=== PATIENT | female | born 1950 | race Caucasian/White ===

== ENCOUNTER → 2018-05-27 09:58 | Outpatient (CLI) | payer MEDICARE, OTHER, SELFPAY ==
--- NOTE | 2018-05-27 09:59 | CDU_ITS ---
Reason For Study: CAROTID ARTERY DISEASE Rt. Velocities/BP Lt. Velocities/BP Prox CCA 84.4/9.38 cm/sec. Prox CCA 99.1/14.1 cm/sec. Mid CCA 104.0/12.3 cm/sec. Mid CCA 80.9/13.5 cm/sec. Dist CCA 76.2/12.3 cm/sec. Dist CCA 76.8/16.4 cm/sec. Prox ICA 75.0/15.2 cm/sec. Prox ICA 49.5/ cm/sec. Mid ICA 76.2/19.3 cm/sec. Mid ICA 85.0/21.7 cm/sec. Dist ICA 67.2/17.9 cm/sec. Dist ICA 80.0/21.4 cm/sec. Rt. ICA/CCA = 76.2/104.0=0.7. Lt. ICA/CCA = 85.0/80.9=1.0. Prox ECA 86.8/7.04 cm/sec. Prox ECA 57.0/8.64 cm/sec. Rt. Vert. 41.2/9.04 cm/sec. Lt. Vert. 46.0/9.04 cm/sec. Right Extracranial There is heterogeneous, smooth atherosclerotic plaque noted in the right common carotid artery. There is heterogeneous, smooth atherosclerotic plaque noted in the right internal carotid artery. The atherosclerotic plaque causes acoustic shadowing. The distal right internal carotid artery is not well visualized. There is heterogeneous, smooth atherosclerotic plaque noted in the right external carotid artery. Antegrade flow is noted in the right vertebral artery. Left Extracranial There is heterogeneous, irregular atherosclerotic plaque noted in the left common carotid artery. There is heterogeneous, irregular atherosclerotic plaque noted in the left internal carotid artery. The distal left internal carotid artery is not well visualized. There is intimal thickening but no significant atherosclerotic plaque noted in the left external carotid artery. Antegrade flow is noted in the left vertebral artery. Procedure Carotid Duplex [id number]. The exam was diagnostic. Exam performed in department. 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 Normal flow left external carotid Poorly visualized bilateral distal internal carotids Patent and antegrade vertebrals bilaterally Findings do not appear to be altered since 09/04/15. Ordering Physician: Ellis Rehman Referring Physician: Ellis Rehman Performed By: Renetta Germain, CAROL ANN, RVT
--- NOTE | 2018-05-27 10:28 | ECHOD_ITS ---
Reason For Study: MURMUR Procedure This was a 2D Doppler, Color Flow transthoracic echocardiogram. The exam was of poor technical quality due to body habitus. The study was technically difficult. Contrast injection was performed. Exam performed in department. Left Ventricle Normal LV size. Left ventricular systolic function is normal. The estimated ejection fraction is 65 %. Diastolic function: considered indeterminate. No regional wall motion abnormalities noted. Right Ventricle Normal RV size. ICD or pacer leads identified within the right ventricle. Normal systolic function. Atria The left atrium is mildly enlarged. Normal right atrium. ICD or pacer leads identified within the right atrium. No doppler evidence for ASD. Mitral Valve There is no mitral annular calcification. Normal mitral valve. Mild (1+) mitral valve insufficiency. Tricuspid Valve Normal tricuspid valve. Mild tricuspid valve insufficiency. Right ventricular systolic pressure estimated to be 28 mmHg. Aortic Valve The aortic valve is not well visualized. Pulmonic Valve The pulmonic valve is not well visualized. Great Vessels Normal sized aortic root. Pericardium/Pleural Epicardial fat. No pericardial effusion. Medication 22 gauge I.V. with prn adaptor inserted into right arm. Diluted definity 6ml given slow IV push to enhance endocardial definition. MMode/2D Measurements & Calculations Ao root diam: 2.7 cm LAV(MOD-bp): 52.2 ml EDV(MOD-sp4): 72.8 ml LA dimension: 4.4 cm LAV(MOD-bp) Indexed: 28.4 ml/m2 ESV(MOD-sp4): 30.9 ml LAV(MOD-sp2): 46.5 ml EF(MOD-sp4): 57.6 % LAV(MOD-sp4): 58.2 ml EDV(MOD-sp2): 46.5 ml SV(MOD-sp4): 42.0 ml SV(MOD-sp2): 30.7 ml EF(MOD-sp2): 65.9 % LA A4 area: 19.8 cm2 RA A4 area: 13.6 cm2 Time Measurements MV dec time: 0.18 sec Doppler Measurements & Calculations MV E max romain: 52.5 cm/sec Lat Peak E' Romain: 4.1 cm/sec Med Peak E' Romain: 5.0 cm/sec MV A max romain: 83.5 cm/sec E/E' lat: 12.7 E/E' med: 10.6 MV E/A: 0.63 Ao V2 max: 183.8 cm/sec LV V1 max: 98.9 cm/sec PA V2 max: 89.4 cm/sec Ao max P.5 mmHg LV V1 max P.9 mmHg Ao V2 mean: 130.4 cm/sec Ao mean P.5 mmHg Ao V2 VTI: 37.0 cm TR max romain: 248.5 cm/sec TR max P.8 mmHg Interpretation Summary The study was technically difficult. Contrast injection was performed. Left ventricular systolic function is normal. The estimated ejection fraction is 65 %. The left atrium is mildly enlarged. Mild (1+) mitral valve insufficiency. Mild tricuspid valve insufficiency. Epicardial fat. Right ventricular systolic pressure estimated to be 28 mmHg. Ordering Physician: Ellis Rehman Referring Physician: RONAL SARABIA Performed By: Sandra Wilson, CAROL ANN, RVT
== END ==
PROVIDERS: Family Provider Internal Medicine; PCP Internal Medicine; Visit Provider Internal Medicine Cardiovascular Disease
DX: R09.89 Other specified symptoms and signs involving the circulatory and respiratory systems (principal); I25.10 Atherosclerotic heart disease of native coronary artery without angina pectoris
CPT/HCPCS: 93306; 93880; Q9957; A4216; C8929

== ENCOUNTER 2019-06-21 19:37 | Emergency (ER) | payer MEDICARE, SELFPAY ==
[2019-05-02 09:50] VITALS: BMI 38.2
[2019-06-21 19:38] VITALS: BP 159/67; PULSE 83; RESP 20; TEMP 38.2; O2SAT 93; BMI 38.0
[2019-06-21 20:00] VITALS: BP 159/67; PULSE 83; RESP 20; TEMP 38.2; O2SAT 97
[2019-06-21] MEDS: Acetaminophen 500 MG Tablet 1000 MG PO (20:09)
[2019-06-21] MEDS: 0.9% Normal Saline 1,000 ML 1000 ML IV (20:09)
[2019-06-21 20:10] LABS: Absolute Lymphocyte Count 0.38 X10^3/uL (0.83-4.51); Absolute Neutrophil Count 1.9 X10^3/uL (2.0-7.7); Basophil# 0.01 X10^3/uL; Basophil% 0.4 % (0-1); Eosinophil# 0.01 X10^3/uL; Eosinophils% 0.4 % (0-5); Hematocrit 43.3 % (37-47); Hemoglobin 14.7 g/dL (12.0-15.0); Lymphocyte # 0.38 X10^3/ul (4.0); Lymphocyte % 16.4 % (19-41); Mean Corp Hgb Conc 33.9 g/dL (32-36); Mean Corpuscular Hgb 34.3 pg (27.0-32.0); Mean Corpuscular Volume 101.2 fL (81-99); Mean Platelet Vol. 10.2 fl (6.2-12.0); Monocyte# 0.01 X10^3/uL; Monocyte% 0.4 % (0-10); NRBC Flagged by Analyzer 0 % (0-5); POSITIVE DIFFERENTIAL YES; POSITIVE MORPHOLOGY YES; Platelet Count 171 K/mm3 (150-450); RBC Distribution Width CV 11.8 % (11.6-14.6); RBC Distribution Width SD 43.8 fl (35.1-43.9); Red Blood Count 4.28 M/mm3 (4.2-5.4); White Blood Count 2.3 K/mm3 (4.4-11.0)
--- NOTE | 2019-06-21 20:15 | RAD_ITS ---
STUDY: X-RAY CHEST REASON FOR EXAM: Female, 69 years old. Cough, weakness. TECHNIQUE: PA and lateral chest. COMPARISON: 08/08/2015. FINDINGS: Dual lead cardiac pacemaker on the left. The lungs are clear and expanded. There is no demonstrated pleural abnormality. Normal size heart. Normal mediastinum and gabino. Normal visualized pulmonary arteries. Normal visualized aortic arch and descending thoracic aorta. Normal visualized thoracic spine. Normal visualized ribs, clavicles, and shoulders. There is no demonstrated abnormality of the visualized soft tissue structures of the upper abdomen. RAD/Chest PA and Lateral IMPRESSION: Normal x-ray examination of the chest. Electronically Signed: Wilma Allison MD at 20:30 EDT Tel , Service support ,
[2019-06-21 20:17] LABS: Differential Indicated SCAN CRITERIA MET
[2019-06-21 20:24] LABS: Anion Gap 11 (5-15); BUN 20 mg/dL (7-18); BUN/Creat Ratio 19.4 RATIO (10-20); Calcium,Total 9.3 mg/dL (8.5-10.1); Chloride 104 mmol/L (98-107); Creatinine, Serum 1.03 mg/dL (0.55-1.02); EST Glomerular Filtration Rate 56 mL/min (>60); Est Glom Filt Rate - Afr Amer 68 mL/min (>60); Estimated Creatinine Clearance 35.98 ml/min; Glucose 137 mg/dL (74-106); Potassium 3.4 mmol/L (3.5-5.1); Sodium Level 136 mmol/L (136-145)
[2019-06-21] MEDS: Ondansetron 4 MG/2 ML Vial IV ×2 (20:25→21:27)
[2019-06-21 20:49] LABS: Bacteria 0 SEEN /hpf (None Seen); Mucous, Urine 0 SEEN /hpf (<or=2+); Red Blood Cells-Urine 0 SEEN /hpf (0-5); Squamous Epithelial Cells - UA 0 SEEN /hpf (5-10)
[2019-06-21 20:51] LABS: Differential Comment SCANNED
[2019-06-21 20:53] LABS: Color, Urine Yellow (Yellow); Glucose, Dipstick Normal (Normal); Ketone-Dipstick 5 mg/dl (Negative); Leukocyte Esterase-Dipstick Negative /ul (Negative); Nitrite-Dipstick Negative (Negative); Occult Blood-Urine Negative /ul (Negative); Protein-Dipstick 15 mg/dl (Negative); Urine Bilirubin Dipstick Negative (Negative); Urine Clarity Clear (Clear); Urine Urobilinogen Normal (Normal)
[2019-06-21 21:00] VITALS: BP 114/54; PULSE 77; RESP 30; TEMP 38.7; O2SAT 95
[2019-06-21 21:00] LABS: White Blood Cells 0-5 SEEN /hpf (0-5)
--- NOTE | 2019-06-21 21:03 | ED.RN ---
DR. MIKE AWARE THAT PT'S VITAL SIGNS AND LAB RESULTS ARE TRIGGERING A SEPSIS ALERT AND STATES HE WILL LOOK AT PT'S RESULTS BEFORE INITIATING SEPSIS ALERT.
--- NOTE | 2019-06-21 21:20 | ED.VIS.GEN ---
History of Present Illness Chief Complaint: Fever Narrative: Patient presenting for evaluation secondary to a sudden onset of fever chills nausea vomiting and diarrhea Cameron as well as some mild shortness of breath. Patient states that she had relatively precipitous onset of the above symptoms this evening. Its been associated with 3-4 episodes of nonbloody nonbilious emesis, and a couple of episodes of loose watery diarrhea. Patient denies any abdominal pain associated with this. The patient's apparently reported that she was mildly confused and was stating that she was short of breath. When questioned, the patient denies being short of breath, and denies any chest pain. Review of systems otherwise negative Past Medical History - Allergies and Home Meds Allergies/Adverse Reactions: Allergies doxycycline calcium [From Vibramycin] Allergy (Verified 11/22/18 09:25) Anaphylaxis doxycycline hyclate [From Vibramycin] Allergy (Verified 11/22/18 09:25) Anaphylaxis doxycycline monohydrate [From Vibramycin] Allergy (Verified 11/22/18 09:25) Anaphylaxis erythromycin base Allergy (Verified 11/22/18 09:25) Anaphylaxis Penicillins Allergy (Verified 11/22/18 09:25) Anaphylaxis Sulfa (Sulfonamide Antibiotics) Allergy (Verified 11/22/18 09:25) Anaphylaxis Primary Care Physician: Kay Peng MD [Primary Care Provider] - Past Medical History: - - Hypertension hyperlipidemia and coronary artery disease with pacemaker implantation Surgical History: colectomy - On account of diverticulitis in 2007., pacemaker implantation Smoking Status: Never smoker - Family History Paternal Family History: Family History (Last Updated 11/22/18 @ 09:24 by Kaity Lambert) Other Diabetes Family History: Reports: No pertinent history Maternal Family History: Family History (Last Updated 11/22/18 @ 09:24 by Kaity Lambert) Other Diabetes Family History: Reports: No pertinent history Review of Systems All systems negative except as indicated General: Reports: Chills, Fever, Malaise Respiratory: Denies: Cough Gastrointestinal: Reports: Nausea, Vomiting, Diarrhea. Denies: Abdominal pain Physical Exam Vital Signs/Narrative: Vital Signs Temp Pulse Resp BP Pulse Ox 06/21/19 21:00 101.6 F H 77 30 H 114/54 L 95 06/21/19 20:00 100.7 F H 83 20 H 159/67 H 97 06/21/19 19:38 100.7 F H 83 20 H 159/67 H 93 General: Well nourished, Well developed, No Acute Distress Head: Normocephalic, Atraumatic Eyes: Perrl, EOMI. Negative for: Pale conjunctiva, Scleral icterus ENT: Moist mucous membranes Neck: Supple, Nontender Cardiovascular: Regular rate, Regular rhythm, No murmurs Respiratory: No distress, CTA bilaterally, - - Mild tachypnea Abdomen: Soft, Nontender, Nondistended, Normal bowel sounds Back: Nontender, Normal Inspection Extremities: Nontender, No edema Skin: Normal color, No rash Neurological: Alert, Oriented x3, Cranial nerves II-XII grossly intact, Normal Strength, Normal Sensation Psychological: Normal affect, Normal Mood Diagnostic/Tx/Re-eval Chest X-Ray - ED: 1 View, Read by Radiologist, No Acute Disease - Medical Decision Making Patient presented secondary to a fever. She was mildly febrile in the emergency department. IV was established patient was given Tylenol Zofran and fluids. Chest x-ray per radiology was found to be negative. CBC demonstrates leukopenia with a left shift and neutrophilic predominance. Chemistry shows mild elevation of the patient's creatinine baseline being 0.7, current to being 1.0. No electrolyte abnormalities, no evidence of anion gap acidosis. Urinalysis found to be negative. Repeat evaluation of patient showed her to have a slight increase in her temperature, she was given Toradol and she continues to complain of nausea. She was given a dose of Zofran for this. Patient at this point has no bacterial nidus of infection, has been exhibiting no evidence of encephalopathy upon my exams. She is mildly tachypneic which I attribute to her elevation in temperature as she has no evidence of hypoxia or respiratory disease and this seems more GI. She has no abdominal pain that would indicate a need for CT imaging of the abdomen. Patient passed a p.o. challenge at 2215. Repeat evaluation at that time shows her to continue to be awake and alert in no respiratory distress with a mildly increased respiratory rate in the 20s and no evidence of hypoxia. This point I feel the patient is appropriate for disposition home I did discuss the patient's case with her primary care physician who agrees to arrange close follow-up. Patient was discharged in stable condition. ED Disposition - Plan for ED Patient: Disposition: Home or Assisted Living Diagnosis: Gastroenteritis Instructions: VOMITING AND DIARRHEA, Nonspecific (Adult) Prescriptions: Ondansetron [Zofran Odt] 4 mg PO Q8H PRN PRN #10 tab PRN Reason: Nausea Prescription Printed Referrals: Kay Peng MD [Primary Care Provider] - 1 Day
[2019-06-21] MEDS: Ketorolac 15 MG/ML Vial IV (21:27)
[2019-06-21 21:51] VITALS: BP 112/56; PULSE 71; RESP 26; O2SAT 95
[2019-06-21 22:45] VITALS: BP 110/57; PULSE 83; RESP 24; TEMP 37.3; O2SAT 94
[2019-06-22 13:50] LABS: Pathologist Review Reviewed
== END 2019-06-21 22:45 | disposition home or self-care (01) ==
PROVIDERS: Emergency Provider Emergency Medicine; Family Provider Internal Medicine; PCP Internal Medicine
DX: K52.9 Noninfective gastroenteritis and colitis, unspecified (principal); E78.5 Hyperlipidemia, unspecified; I10 Essential (primary) hypertension; I25.10 Atherosclerotic heart disease of native coronary artery without angina pectoris; Z95.0 Presence of cardiac pacemaker; Z79.82 Long term (current) use of aspirin; Z79.899 Other long term (current) drug therapy
CPT/HCPCS: 71046; 80048; 81001; 85025; 96361; 96374; 96375; 96376; 99284; J7030; A4216; J2405

== ENCOUNTER 2019-06-24 11:26 | Inpatient (IN) | payer MEDICARE, SELFPAY ==
[2019-06-24] VITALS (7 sets, daily range): BP systolic 113–141; BP diastolic 69–78; PULSE 70–138; RESP 15–21; TEMP 36.8–37.5; O2SAT 90–100; BMI 38.0; BMI 36.6
--- NOTE | 2019-06-24 11:46 | RAD_ITS ---
STUDY: X-RAY CHEST REASON FOR EXAM: Female, 69 years old. Fever TECHNIQUE: Frontal and lateral views of the chest COMPARISON: 06/21/2019 FINDINGS: The lungs are clear. There are no pleural effusions. There is no pneumothorax. The heart is stable in size. Again noted is a pacemaker. The visualized osseous structures are within normal limits. RAD/Chest PA and Lateral IMPRESSION: No acute thoracic pathology. Electronically Signed: Parviz Deluca, at 13:30 EDT Tel , Service support ,
--- NOTE | 2019-06-24 11:47 | CT_ITS ---
STUDY: CT ABDOMEN AND PELVIS WITH CONTRAST REASON FOR EXAM: Female, 69 years old. Back pain RADIATION DOSAGE (If Supplied By Facility): CTDIvol = ( 18.61 ) mGy, DLP = ( 1205.43 ) mGycm TECHNIQUE: Transaxial images were obtained from the dome of the diaphragm to the symphysis pubis without oral contrast. 100 ml of Isovue 370 contrast was administered. Sagittal and coronal images were reconstructed. Individualized dose optimization techniques were used for this CT. COMPARISON: None. FINDINGS: There is atelectasis at the lung bases. There is a pacemaker in place. There are no calcified gallstones present. The liver is within normal limits. There are no suspicious hepatic lesions. The spleen is normal in size. The pancreas is within normal limits. The adrenal glands are within normal limits. There are no renal or ureteral stones. There is no hydronephrosis. There are no focal renal lesions. Normal visualized stomach. There are postsurgical changes from a prior right hemicolectomy. There are inflammatory changes in the pelvis adjacent to a sigmoid diverticula. This is consistent with acute sigmoid diverticulitis. There is no bowel obstruction. There is a fat-containing ventral hernia. The aorta is normal in caliber. There is no abdominal or pelvic free air, free fluid, fluid collection or lymphadenopathy. There are no destructive osseous lesions. There are degenerative changes noted in the spine. CT/Abdomen/Pelvis W IV Cont ONLY IMPRESSION: Acute sigmoid diverticulitis without evidence of perforation or abscess formation. Electronically Signed: Parviz Deluca, at 13:43 EDT Tel , Service support ,
[2019-06-24] MEDS: 0.9% Normal Saline 1,000 ML 1000 ML IV (12:00)
[2019-06-24 12:10] LABS: Absolute Lymphocyte Count 0.57 X10^3/uL (0.83-4.51); Absolute Neutrophil Count 8.4 X10^3/uL (2.0-7.7); Basophil# 0.06 X10^3/uL; Basophil% 0.6 % (0-1); Eosinophil# 0.01 X10^3/uL; Eosinophils% 0.1 % (0-5); Hemoglobin 12.7 g/dL (12.0-15.0); Lymphocyte # 0.57 X10^3/ul (4.0); Lymphocyte % 6.2 % (19-41); Mean Corp Hgb Conc 33.4 g/dL (32-36); Mean Corpuscular Volume 101.9 fL (81-99); Mean Platelet Vol. 11.4 fl (6.2-12.0); Monocyte# 0.14 X10^3/uL; Monocyte% 1.5 % (0-10); NRBC Flagged by Analyzer 0 % (0-5); Neutrophil # 8.43 X10^3/uL (2.7-7.7); Neutrophil % 91.1 % (47-70); POSITIVE DIFFERENTIAL YES; POSITIVE MORPHOLOGY YES; Platelet Count 120 K/mm3 (150-450); RBC Distribution Width SD 45.1 fl (35.1-43.9); Red Blood Count 3.73 M/mm3 (4.2-5.4); White Blood Count 9.3 K/mm3 (4.4-11.0)
[2019-06-24 12:12] LABS: Differential Indicated SCAN CRITERIA MET
[2019-06-24 12:24] LABS: ALB/GLOB Ratio 0.8 RATIO (0.9-2.4); AST(SGOT) 43 U/L (15-37); Alanine Aminotransfer ALT/SGPT 50 U/L (13-56); Alkaline Phosphatase 91 U/L (45-117); Anion Gap 9 (5-15); BUN 23 mg/dL (7-18); BUN/Creat Ratio 22.1 RATIO (10-20); Chloride 103 mmol/L (98-107); Creatinine, Serum 1.04 mg/dL (0.55-1.02); EST Glomerular Filtration Rate 55 mL/min (>60); Est Glom Filt Rate - Afr Amer 67 mL/min (>60); Estimated Creatinine Clearance 35.64 ml/min; Glucose 162 mg/dL (74-106); Potassium 3.6 mmol/L (3.5-5.1); Sodium Level 135 mmol/L (136-145)
[2019-06-24 12:36] LABS: Lactic Acid 2.9 mmol/L (0.4-2.0)
[2019-06-24 12:44] LABS: Differential Comment A
[2019-06-24 13:01] LABS: CPK Total, Creatine Kinase 332 U/L (26-192)
[2019-06-24 13:01] LABS: Bacteria 0 SEEN /hpf (None Seen); Mucous, Urine 0 SEEN /hpf (<or=2+); Red Blood Cells-Urine 0 SEEN /hpf (0-5); Squamous Epithelial Cells - UA 0 SEEN /hpf (5-10); White Blood Cells 0 SEEN /hpf (0-5)
[2019-06-24 13:02] LABS: Color, Urine Yellow (Yellow); Glucose, Dipstick Normal (Normal); Ketone-Dipstick 5 mg/dl (Negative); Leukocyte Esterase-Dipstick 25 /ul (Negative); Nitrite-Dipstick Negative (Negative); Occult Blood-Urine 50 /ul (Negative); Protein-Dipstick 100 mg/dl (Negative); Urine Bilirubin Dipstick Negative (Negative); Urine Clarity Clear (Clear); Urine Urobilinogen Normal (Normal); Urine pH 6.5 (5.0 - 8.0)
--- NOTE | 2019-06-24 13:52 | ED.DCSUM_ITS ---
- ER Visit Summary Date of Service: 06/24/19 Chief Complaint: Low back pain History of Present Illness: The patient is a [address] Peng. She reports that she has right lower back pain that began 2 days ago. She describes it as a spasm. Slanted 10 hours and 5-10 currently. Is worsened by movement. She taken Tylenol with mild relief. Patient reports that the pain is worst when she has shaking chills. She denies a fever. There is no radiation to her legs. No numbness, tingling, or weakness in her legs. She denies any groin numbness. No urinary retention or incontinence of stool. Patient reports that she has been nauseated. She denies any vomiting or diarrhea. No abdominal pain. No dysuria frequency. No rash, headache, numbness, or weakness. However, she reports she has not felt well over the past 2 days and has not eaten any solid food. Physical Examination: Vitals: Stable. Afebrile. General: A&O x 3. NAD. Cardiovascular exam: Tachycardic regular rhythm, no murmur, rub or gallop. Respiratory exam: Clear to auscultation bilaterally. No wheezes or stridor. Abdominal exam: Soft, mild left lower quadrant tenderness to palpation, nondistended, normal bowel sounds. No peritoneal signs. Back: Mild tenderness palpation over the paraspinous posture in the right side of the lumbar region. No point tenderness. Negative straight leg bilaterally. 5/5 DF, PF, EHL bilaterally. Normal sensation to light touch throughout. Extremity: No clubbing, cyanosis, or edema. Test Results: CBC shows platelets of 120, segmented neutrophils of 91, lymphocytes of 6. Chem-7 shows a sodium 135, glucose 162, BUN 23, creatinine 1.04. LFTs show an albumin 3.0 and an ALT of 43. UA shows leukocytes. No evidence of infection otherwise. Lactic acid is 2.9. CPK is 332. Chest x-ray is normal. Clinical Impression(s) from Imaging Studies Abdomen/Pelvis CT 06/24/19 11:47 IMPRESSION: Acute sigmoid diverticulitis without evidence of perforation or abscess formation. Electronically Signed: Parviz Deluca, at 13:43 EDT Tel , Service support , Emergency Department Course and Treatment: Patient was given 2 L of normal saline. Her lactic acid was repeated. This is 1.2. She was given Cipro, Flagyl, and morphine IV. On repeat exam she reports that her back pain is so severe that she cannot get around and up the stairs at home. Treatment Plan: Given the patient's shaking chills I do have a concern about the possibility of bacteremia. Her CT does not show evidence of discitis or epidural abscess. She feels quite sure that her back pain began at [employer]. However, the combination of shaking chills and back pain is concerning. The patient was discussed with Dr. Barker. She will be admitted to the hospital for further ablation and treatment. Disposition: Admitted in improved condition. Impression: 1. Diverticulitis. 2. Back pain, acute. This note was generated with [employer] dictation software. It may contain incorrect words, spelling, and punctuation that were not noted in review of the chart prior to signing ED Disposition - Plan for ED Patient: Referrals: Kay Peng MD [Primary Care Provider] -
[2019-06-24] MEDS: Ondansetron 4 MG/2 ML Vial IV (14:12)
[2019-06-24] MEDS: Morphine 4 MG/ML Syringe IV (14:12)
[2019-06-24] MEDS: Ciprofloxacin 400 MG/200 ML BAG 200 MG IV ×2 (14:19→22:24)
[2019-06-24] MEDS: 0.9% Normal Saline 1,000 ML 999 ML IV (14:20)
[2019-06-24 14:57] LABS: Lactic Acid 1.2 mmol/L (0.4-2.0)
[2019-06-24] MEDS: metroNIDAZOLE 500 MG/100 ML BAG 100 MG IV ×2 (15:21→22:33)
[2019-06-24 16:02] LABS: Reflex Lactate? Y
--- NOTE | 2019-06-24 16:35 | PCM.HP.STD ---
<Riddhi Caballero - Last Filed: 06/24/19 17:12> Problem List (1) Sinus node dysfunction Status: Chronic (2) Presence of cardiac pacemaker Status: Chronic Comment: [employer] Rj ODELL DR (3) Left carotid bruit Status: Chronic (4) History of coronary artery stent placement Status: Chronic Comment: PDS-SGU-Ewnq D1 w/ Promus Premier 2.50 mm x 12 mm, ENS-PIM-Purp-Mid LAD w/ Promus Premier 3.0 mm x 16 mm, EJS-QWY-Qokt-Mid RCA w/ Promus Premier 4.0 mm x 38 mm. 08/09/15 (5) Atherosclerotic heart disease of [place] coronary artery without angina pectoris Status: Chronic Qualifiers: [place] vs. transplanted heart: [place] heart Qualified Code(s): I25.10 - Atherosclerotic heart disease of [place] coronary artery without angina pectoris Comment: KJS-LPG-Dfwm D1 w/ Promus Premier 2.50 mm x 12 mm, OIS-VVP-Wcte-Mid LAD w/ Promus Premier 3.0 mm x 16 mm, LSK-SBW-Itwv-Mid RCA w/ Promus Premier 4.0 mm x 38 mm. 08/09/15 (6) Hyperlipidemia Status: Chronic Qualifiers: Hyperlipidemia type: unspecified Qualified Code(s): E78.5 - Hyperlipidemia, unspecified (7) Nonrheumatic mitral valve regurgitation Status: Chronic (8) Nonrheumatic tricuspid (valve) insufficiency Status: Chronic (9) HTN (hypertension) Status: Chronic Qualifiers: Hypertension type: essential hypertension Qualified Code(s): I10 - Essential (primary) hypertension History of Present Illness Date of Admission: 06/24/19 Chief Complaint: Intractable right lower back pain. The patient is a 69 year old F who presents to the emergency room due to intractable right lower back pain. Patient reports she did Real Time Tomography workout last Wednesday morning. She denies any injury during the workout. Later that evening she developed sudden onset of fever, chills, diarrhea and nausea and vomiting and presented to the emergency room at that time. Patient was treated with IV Zofran and IV fluids. She did not have abdominal imaging at that time. She was improved and sent home. She then reports she developed right lower back pain which has progressively worsened since that time. She states now she is having difficulty ambulating and completing ADLs due to severe pain. She reports she continues to have poor appetite and intermittent diarrhea. Denies further nausea, vomiting. She has a past medical history of CAD status post stents, sick sinus syndrome status post pacemaker placement, hypothyroidism, hypertension, hyperlipidemia, history of GI bleed. Past Medical History Past Medical History (Chronic Problems): Chronic Problems (Last Updated 06/24/19 @ 17:54 by Alexi Barker MD) Sinus node dysfunction (Chronic) Presence of cardiac pacemaker (Chronic 08/10/15) [employer] Accolade ACSS VÁSQUEZ Left carotid bruit (Chronic) History of coronary artery stent placement (Chronic 08/09/15) PRI-YRC-Fgxi D1 w/ Promus Premier 2.50 mm x 12 mm, ZDN-QBX-Fffs-Mid LAD w/ Promus Premier 3.0 mm x 16 mm, HRZ-FPE-Eyli-Mid RCA w/ Promus Premier 4.0 mm x 38 mm. 08/09/15 Atherosclerotic heart disease of [place] coronary artery without angina pectoris (Chronic) SGL-BIJ-Hhoh D1 w/ Promus Premier 2.50 mm x 12 mm, ISR-EMR-Cezg-Mid LAD w/ Promus Premier 3.0 mm x 16 mm, PPH-GGJ-Carq-Mid RCA w/ Promus Premier 4.0 mm x 38 mm. 08/09/15 Hyperlipidemia (Chronic) Nonrheumatic mitral valve regurgitation (Chronic) Nonrheumatic tricuspid (valve) insufficiency (Chronic) HTN (hypertension) (Chronic) Medical History: Medical History (Last Reviewed 11/22/18 @ 09:24 by Kaity Lambert) Sinus node dysfunction (Chronic) I49.5 Left carotid bruit (Chronic) R09.89 Atherosclerotic heart disease of [place] coronary artery without angina pectoris (Chronic) I25.10 WRZ-CRR-Khrp D1 w/ Promus Premier 2.50 mm x 12 mm, DTE-FCY-Rmat-Mid LAD w/ Promus Premier 3.0 mm x 16 mm, YEB-FMB-Mbua-Mid RCA w/ Promus Premier 4.0 mm x 38 mm. 08/09/15 Hyperlipidemia (Chronic) E78.5 Nonrheumatic mitral valve regurgitation (Chronic) I34.0 Nonrheumatic tricuspid (valve) insufficiency (Chronic) I36.1 HTN (hypertension) (Chronic) I10 Diverticulitis K57.92 Hypothyroidism E03.9 Osteoarthritis M19.90 Acute blood loss anemia (Resolved) D62 Dyspnea on exertion (Resolved) R06.09 Fatigue (Resolved) R53.83 GI bleed K92.2 Allergies doxycycline calcium [From Vibramycin] Allergy (Verified 06/24/19 11:30) Anaphylaxis doxycycline hyclate [From Vibramycin] Allergy (Verified 06/24/19 11:30) Anaphylaxis doxycycline monohydrate [From Vibramycin] Allergy (Verified 06/24/19 11:30) Anaphylaxis erythromycin base Allergy (Verified 06/24/19 11:30) Anaphylaxis Penicillins Allergy (Verified 06/24/19 11:30) Anaphylaxis Sulfa (Sulfonamide Antibiotics) Allergy (Verified 06/24/19 11:30) Anaphylaxis Home Medications: Ambulatory Orders Medication Instructions Recorded Furosemide [Lasix] 40 mg QHS 08/08/15 Multivit-Min/Iron/Folic/Lutein 1 tab PO DAILY 09/03/15 [Centrum Silver Women Tablet] aspirin 81 mg tablet,delayed 81 mg PO QDAY 11/02/17 release latanoprost 0.005 % eye drops 1 drp OPHTHALMIC QDAY 11/03/17 pantoprazole 40 mg tablet,delayed 20 mg PO QDAY tab 11/03/17 release calcium carbonate 500 mg calcium 500 mg PO QDAY tab 05/19/18 (1,250 mg) tablet levothyroxine 100 mcg tablet 100 mcg PO QDAY 05/19/18 lisinopril 10 mg tablet 10 mg PO QDAY #90 tab 09/29/18 clopidogrel 75 mg tablet 75 mg PO DAILY #90 tab 12/26/18 atorvastatin 20 mg tablet 20 mg PO QHS #90 tab 01/02/19 Ondansetron [Zofran Odt] 4 mg PO Q8H PRN PRN #10 tab 06/21/19 Surgical History: Surgical History (Last Reviewed 11/22/18 @ 09:24 by Kaity Lambert) Presence of cardiac pacemaker (Chronic) Onset Date: 08/10/15 Z95.[address] [employer] [address] History of coronary artery stent placement (Chronic) Onset Date: 08/09/15 Z95.5 OZO-JXD-Elqr D1 w/ Promus Premier 2.50 mm x 12 mm, RRD-QCY-Vzrj-Mid LAD w/ Promus Premier 3.0 mm x 16 mm, YQG-YFA-Zeyp-Mid RCA w/ Promus Premier 4.0 mm x 38 mm. 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 Maternal Family History: Family History (Last Updated 11/22/18 @ 09:24 by Kaity Lambert) Other Diabetes History Items: - - Denies known paternal medical history including cardiac history. Review of Systems Constitutional: Reports: Malaise, Weakness. Denies: Chills, Fever HEENT: Denies: Head Aches, Sinus Congestion, Sinus Drainage Cardiovascular: Denies: Chest Pain, Edema, Light Headedness, Palpitations, Syncope Respiratory: Denies: Cough, Shortness of breath at rest, Sputum production Gastrointestinal: Reports: Diarrhea, - - Poor appetite. Denies: Abdominal Pain, Nausea, Vomiting Genitourinary: Denies: Dysuria, Incontinence, Retention Musculoskeletal: Reports: Back Pain - Right lower back Skin: Denies: Rash, Wounds Neurological: Denies: Numbness, Tingling, Focal weakness Psychiatric: Denies: Anxiety, Depression, Homicidal Ideations, Suicidal Ideations Hematologic/ Lymphatic: Denies: Easy Bruising, Easy Bleeding VTE Information - Inpt Only VTE Present on Admission: No VTE Mechan Device Prophylaxis: None VTE Pharm Prophylaxis ordered?: Yes - Physical Exam General: Alert, Oriented x3, Cooperative HEENT: Atraumatic, PERRLA, EOMI, Normocephalic Neck: Supple, No JVD, Negative Carotid Bruits Lungs: Clear to auscultation, Normal air movement Cardiovascular: Regular rate, Regular Rhythm, Normal S1, Normal S2, No murmurs, - - Paced Abdomen: Bowel Sounds Present, Soft, Non Tender, Non-Distended, Obese Extremities: No clubbing, No cyanosis, No edema Skin: No rashes, No breakdown Musculoskeletal: Tenderness - Right flank area Neurological: Cranial nerves II-XII grossly intact, Neuro grossly intact Psych/Mental Status: Normal Affect, Appropriate Vital Signs Temp Pulse Resp BP Pulse Ox 99.5 F H 73 21 H 113/76 95 06/24/19 13:30 06/24/19 15:19 06/24/19 15:19 06/24/19 15:19 06/24/19 15:19 Oxygen Flow Rate (L/min) 2 Oxygen Delivery Method Nasal Cannula Weight: 195 lb Body Mass Index (BMI) 38.0 Intake and Output for Last 24 Hours 06/22/19 06/23/19 06/24/19 23:59 23:59 23:59 Intake Total 1200 / 1200 Balance 1200 / 1200 Laboratory Tests Past 24 Hrs 06/24/19 06/24/19 06/24/19 11:55 11:55 11:55 WBC 9.3 RBC 3.73 L Hgb 12.7 Hct 38.0 MCV 101.9 H MCH 34.0 H MCHC 33.4 RDW Std Deviation 45.1 H RDW Coeff of [place] 12.0 Plt Count 120 L MPV 11.4 Immature Gran % (Auto) 0.500 Neut % (Auto) 91.1 H Lymph % (Auto) 6.2 L [place] % (Auto) 1.5 Eos % (Auto) 0.1 Baso % (Auto) 0.6 Absolute Neuts (auto) 8.4 H Absolute Lymphs (auto) 0.57 L Nucleated RBC % 0 Differential Comment A Sodium 135 L Potassium 3.6 Chloride 103 Carbon Dioxide 23.0 Anion Gap 9 BUN 23 H Creatinine 1.04 H Estim Creat Clear Calc 35.64 Est GFR (MDRD) Af Amer 67 Est GFR (MDRD) Non-Af 55 L BUN/Creatinine Ratio 22.1 H Glucose 162 H Lactic Acid 2.9 H Calcium 9.0 Total Bilirubin 1.00 AST 43 H ALT 50 Alkaline Phosphatase 91 Total Creatine Kinase Total Protein 7.0 Albumin 3.0 L Globulin 4.0 Albumin/Globulin Ratio 0.8 L Urine Color Urine Clarity Urine pH Ur Specific [place] Urine Protein Urine Glucose (UA) Urine Ketones Urine Occult Blood Urine Nitrite Urine Bilirubin Urine Urobilinogen Ur Leukocyte Esterase Urine RBC Urine WBC Ur Squamous Epith Cells Urine Bacteria Urine Mucus 06/24/19 06/24/19 06/24/19 11:55 12:50 14:15 WBC RBC Hgb Hct MCV MCH MCHC RDW Std Deviation RDW Coeff of [place] Plt Count MPV Immature Gran % (Auto) Neut % (Auto) Lymph % (Auto) [place] % (Auto) Eos % (Auto) Baso % (Auto) Absolute Neuts (auto) Absolute Lymphs (auto) Nucleated RBC % Differential Comment Sodium Potassium Chloride Carbon Dioxide Anion Gap BUN Creatinine Estim Creat Clear Calc Est GFR (MDRD) Af Amer Est GFR (MDRD) Non-Af BUN/Creatinine Ratio Glucose Lactic Acid 1.2 Calcium Total Bilirubin AST ALT Alkaline Phosphatase Total Creatine Kinase 332 H Total Protein Albumin Globulin Albumin/Globulin Ratio Urine Color Yellow Urine Clarity Clear Urine pH 6.5 Ur Specific [place] 1.010 Urine Protein 100 H Urine Glucose (UA) Normal Urine Ketones 5 H Urine Occult Blood 50 H Urine Nitrite Negative Urine Bilirubin Negative Urine Urobilinogen Normal Ur Leukocyte Esterase 25 H Urine RBC 0 SEEN Urine WBC 0 SEEN Ur Squamous Epith Cells 0 SEEN Urine Bacteria 0 SEEN Urine Mucus 0 SEEN Assessment/Plan 1. Acute diverticulitis-IV Cipro and IV Flagyl. IV fluids. PRN Zofran for nausea. Clear liquid diet. 2. Intractable lumbar back pain, suspect muscle strain-pain started following Real Time Tomography workout. PRN pain regimen. IV Toradol every 8 hours x2 doses. Scheduled Flexeril x2 doses. If not improved following reassessment tomorrow morning, may need further lumbar imaging. PT/OT. 3. Mild dehydration, secondary to #1-IV fluids. Trend BMP. No evidence of acute kidney injury. 4. CAD status post stents-continue aspirin, statin, Plavix. 5. Sick sinus syndrome status post pacemaker placement-follows with Dr. Rehman. 6. Hypothyroidism-continue home Synthroid regimen. 7. Hypertension- Continue home lisinopril regimen. Hold Lasix given evidence of mild dehydration. 8. Hyperlipidemia-continue statin. 9. History of GI bleed-continue home PPI regimen. 10. Obesity-encouraged diet and lifestyle modifications. DVT prophylaxis-Lovenox subcu This patient was seen by MELANIA Tong under the supervision of Dr. Barker. <Alexi Barker - Last Filed: 06/24/19 18:07> History of Present Illness The patient is a 69 year old F [] Past Medical History Medical History: Medical History (Last Reviewed 11/22/18 @ 09:24 by Kaity Lambert) Sinus node dysfunction (Chronic) I49.5 Left carotid bruit (Chronic) R09.89 Atherosclerotic heart disease of [place] coronary artery without angina pectoris (Chronic) I25.10 USP-VJL-Zbrj D1 w/ Promus Premier 2.50 mm x 12 mm, WMX-LSQ-Cefg-Mid LAD w/ Promus Premier 3.0 mm x 16 mm, JRB-HJV-Afxv-Mid RCA w/ Promus Premier 4.0 mm x 38 mm. 08/09/15 Hyperlipidemia (Chronic) E78.5 Nonrheumatic mitral valve regurgitation (Chronic) I34.0 Nonrheumatic tricuspid (valve) insufficiency (Chronic) I36.1 HTN (hypertension) (Chronic) I10 Diverticulitis K57.92 Hypothyroidism E03.9 Osteoarthritis M19.90 Acute blood loss anemia (Resolved) D62 Dyspnea on exertion (Resolved) R06.09 Fatigue (Resolved) R53.83 GI bleed K92.2 Allergies doxycycline calcium [From Vibramycin] Allergy (Verified 06/24/19 11:30) Anaphylaxis doxycycline hyclate [From Vibramycin] Allergy (Verified 06/24/19 11:30) Anaphylaxis doxycycline monohydrate [From Vibramycin] Allergy (Verified 06/24/19 11:30) Anaphylaxis erythromycin base Allergy (Verified 06/24/19 11:30) Anaphylaxis Penicillins Allergy (Verified 06/24/19 11:30) Anaphylaxis Sulfa (Sulfonamide Antibiotics) Allergy (Verified 06/24/19 11:30) Anaphylaxis Surgical History: Surgical History (Last Reviewed 11/22/18 @ 09:24 by Kaity Lambert) Presence of cardiac pacemaker (Chronic) Onset Date: 08/10/15 Z95.0 [employer] Accol[employer] CASS VÁSQUEZ History of coronary artery stent placement (Chronic) Onset Date: 08/09/15 Z95.5 JHI-BXN-Ktln D1 w/ Promus Premier 2.50 mm x 12 mm, ANY-UEZ-Ksln-Mid LAD w/ Promus Premier 3.0 mm x 16 mm, OZP-TUB-Vbyq-Mid RCA w/ Promus Premier 4.0 mm x 38 mm. 08/09/15 - *Family History Paternal Family History: Family History (Last Updated 01/29/19 @ 09:24 by Kaity Lambert) Other Diabetes Maternal Family History: Family History (Last Updated 11/22/18 @ 09:24 by Kaity Lambert) Other Diabetes - Physical Exam Vital Signs Temp Pulse Resp BP Pulse Ox 99.5 F H 70 18 113/76 100 06/24/19 13:30 06/24/19 17:46 06/24/19 17:46 06/24/19 15:19 06/24/19 17:46 Oxygen Flow Rate (L/min) 2 Oxygen Delivery Method Nasal Cannula Weight: 200 lb 2.876 oz Body Mass Index (BMI) 36.6 Intake and Output for Last 24 Hours 06/22/19 06/23/19 06/24/19 23:59 23:59 23:59 Intake Total 2300 / 2300 Balance 2300 / 2300 Laboratory Tests Past 24 Hrs 06/24/19 06/24/19 06/24/19 11:55 11:55 11:55 WBC 9.3 RBC 3.73 L Hgb 12.7 Hct 38.0 MCV 101.9 H MCH 34.0 H MCHC 33.4 RDW Std Deviation 45.1 H RDW Coeff of [place] 12.0 Plt Count 120 L MPV 11.4 Immature Gran % (Auto) 0.500 Neut % (Auto) 91.1 H Lymph % (Auto) 6.2 L [place] % (Auto) 1.5 Eos % (Auto) 0.1 Baso % (Auto) 0.6 Absolute Neuts (auto) 8.4 H Absolute Lymphs (auto) 0.57 L Nucleated RBC % 0 Differential Comment A Sodium 135 L Potassium 3.6 Chloride 103 Carbon Dioxide 23.0 Anion Gap 9 BUN 23 H Creatinine 1.04 H Estim Creat Clear Calc 35.64 Est GFR (MDRD) Af Amer 67 Est GFR (MDRD) Non-Af 55 L BUN/Creatinine Ratio 22.1 H Glucose 162 H Lactic Acid 2.9 H Calcium 9.0 Total Bilirubin 1.00 AST 43 H ALT 50 Alkaline Phosphatase 91 Total Creatine Kinase Total Protein 7.0 Albumin 3.0 L Globulin 4.0 Albumin/Globulin Ratio 0.8 L Urine Color Urine Clarity Urine pH Ur Specific [place] Urine Protein Urine Glucose (UA) Urine Ketones Urine Occult Blood Urine Nitrite Urine Bilirubin Urine Urobilinogen Ur Leukocyte Esterase Urine RBC Urine WBC Ur Squamous Epith Cells Urine Bacteria Urine Mucus 06/24/19 06/24/19 06/24/19 11:55 12:50 14:15 WBC RBC Hgb Hct MCV MCH MCHC RDW Std Deviation RDW Coeff of [place] Plt Count MPV Immature Gran % (Auto) Neut % (Auto) Lymph % (Auto) [place] % (Auto) Eos % (Auto) Baso % (Auto) Absolute Neuts (auto) Absolute Lymphs (auto) Nucleated RBC % Differential Comment Sodium Potassium Chloride Carbon Dioxide Anion Gap BUN Creatinine Estim Creat Clear Calc Est GFR (MDRD) Af Amer Est GFR (MDRD) Non-Af BUN/Creatinine Ratio Glucose Lactic Acid 1.2 Calcium Total Bilirubin AST ALT Alkaline Phosphatase Total Creatine Kinase 332 H Total Protein Albumin Globulin Albumin/Globulin Ratio Urine Color Yellow Urine Clarity Clear Urine pH 6.5 Ur Specific [place] 1.010 Urine Protein 100 H Urine Glucose (UA) Normal Urine Ketones 5 H Urine Occult Blood 50 H Urine Nitrite Negative Urine Bilirubin Negative Urine Urobilinogen Normal Ur Leukocyte Esterase 25 H Urine RBC 0 SEEN Urine WBC 0 SEEN Ur Squamous Epith Cells 0 SEEN Urine Bacteria 0 SEEN Urine Mucus 0 SEEN Assessment/Plan Hospitalist note: I am seeing this patient in conjunction with Riddhi Caballero. I independently seen and examined the patient. History and physical, laboratory data and imaging studies reviewed and I concur with the above admission and treatment plan. Patient presented to the emergency room because of right lower back pain that has been going for the last 3 days, not radiating, 10 out of 10 in severity, came down to 8 hours sincerity after IV morphine that she received in the ED, aggravated by movement and minimally relieved by rest and without associated symptoms. She has been doing CrossFit exercises at home. On the same day, she started having fever with chills as well as episodes of nausea and vomiting with diarrhea. On that day, she came to the emergency department where she received IV fluids and IV Zofran and she was discharged home. She continued to have right lower back pain and she was not able to ambulate and her pain has been getting more severe. In the emergency department, she was tachycardic, afebrile, blood pressure was stable, pulse ox was 95% on 2 L. Her routine blood work was remarkable for platelet count of 120,000, BUN of 23 and creatinine of 1.04. Her LFT was normal. Lactic acid was 2.9. She received bolus of IV fluids in the ER and repeat lactic acid was 1.2. Chest x-ray showed no acute findings. CT scan abdomen and pelvis with IV contrast revealed acute sigmoid diverticulitis without evidence of osseous lesions. Patient had a history of diverticula in the past and she had a history of bowel resection for diverticulitis back in 2013. She is being admitted for acute sigmoid diverticulitis, dehydration and intractable right lower back pain likely due to muscle strain/spasm. - Physical Exam General: Alert, Oriented x3, Cooperative, No apparent distress. HEENT: Atraumatic, PERRLA, EOMI. Neck: Supple, No JVD, Negative Carotid Bruits, Trachea Midline, Thyroid Normal. Lungs: Clear to auscultation, Normal air movement, No rhonchi, No wheeze, No rales. Cardiovascular: Regular rate, Regular Rhythm, Normal S1, Normal S2, PMI Normal. Abdomen: Bowel Sounds Present, Soft, Non Tender, Non-Distended, No Hepato-splenomegaly. Extremities: No clubbing, No cyanosis, No edema Skin: No rashes, No breakdown Neurological: Cranial nerves are intact, neuro grossly intact. Assessment and plan: #1 acute sigmoid diverticulitis: This is diagnosed on CAT scan although patient denies any abdominal pain. She has been having fever, chills with nausea and vomiting as well as diarrhea. Her lactic acid was 2.9, no leukocytosis. Lactic acid returned back to normal after fluid bolus. CT scan abdomen and pelvis reviewed as above. Patient history of diverticulitis in the past with history of bowel resection back in 2013. Plan[facility], clear liquids, IV fluids, start IV ciprofloxacin and Flagyl, repeat CBC and BMP tomorrow morning, IV antiemetics, Tylenol as needed, PT OT evaluation and treatment. #2 mild dehydration: Likely because of the of #1. BUN is 23, creatinine is 1.04. Plan for IV fluids as above, repeat BMP tomorrow morning. #3 intractable right lumbar back pain: Likely due to muscle strain/spasm. CT scan abdomen revealed no evidence of osseous lesions or fractures. Plan for OxyIR PRN for pain, Flexeril as needed, PT OT. If her pain did not improve, patient may need MRI of her lumbar spine to rule out other pathologies. #4 other chronic medical problems: Stable, continue current medications as above. This note was generated with [employer] software. It may contain incorrect words, spelling, and punctuation that were not noted in checking the note before signing. Code Visit Inpatient E&M: 76475 Init Hosp L3
[2019-06-24] MEDS: Ketorolac 15 MG/ML Vial IV (17:39)
[2019-06-24] MEDS: 0.9% Normal Saline 1,000 ML 125 ML IV (17:39)
[2019-06-24] MEDS: cycloBENZAPRine HCl 10 MG Tablet PO (17:39)
[2019-06-24] MEDS: Atorvastatin Calcium 20 MG Tablet PO (22:30)
[2019-06-24] MEDS: 0.9% NaCl IVPB Med Flush (250 mL) 15 ML IV (22:32)
[2019-06-24] MEDS: 0.9% NaCl Peripheral Flush Adult/Peds IV (22:34)
[2019-06-25] VITALS (9 sets, daily range): BP systolic 117–145; BP diastolic 62–82; PULSE 70–110; RESP 18–24; TEMP 37.2–38.1; O2SAT 89–100
[2019-06-25] MEDS: 0.9% NaCl Peripheral Flush Adult/Peds IV (02:26)
[2019-06-25] MEDS: Ondansetron 4 MG/2 ML Vial IV (02:26)
[2019-06-25] MEDS: 0.9% Normal Saline 1,000 ML 125 ML IV (02:45)
[2019-06-25] MEDS: cycloBENZAPRine HCl 10 MG Tablet 5 MG PO (03:11)
--- NOTE | 2019-06-25 03:23 | NURSING ---
Pt becomes very short of breath with ambulation. Pt states that this has been happening since Wednesday. Applied O2 to help pt recover.
[2019-06-25] MEDS: metroNIDAZOLE 500 MG/100 ML BAG 100 MG IV ×3 (05:42→21:03)
[2019-06-25] MEDS: Levothyroxine 100 MCG Tablet PO (05:44)
[2019-06-25] MEDS: oxyCODONE 5 MG Tablet PO ×4 (06:49→20:54)
[2019-06-25 07:14] LABS: Anion Gap 9 (5-15); BUN 15 mg/dL (7-18); BUN/Creat Ratio 19.1 RATIO (10-20); Calcium,Total 7.7 mg/dL (8.5-10.1); Chloride 106 mmol/L (98-107); Creatinine, Serum 0.78 mg/dL (0.55-1.02); EST Glomerular Filtration Rate 77 mL/min (>60); Est Glom Filt Rate - Afr Amer 93 mL/min (>60); Estimated Creatinine Clearance 40.81 ml/min; Glucose 136 mg/dL (74-106); Potassium 3.9 mmol/L (3.5-5.1); Sodium Level 135 mmol/L (136-145)
[2019-06-25 07:16] LABS: Absolute Lymphocyte Count 1.36 X10^3/uL (0.83-4.51); Absolute Neutrophil Count 9.1 X10^3/uL (2.0-7.7); Basophil# 0.05 X10^3/uL; Basophil% 0.4 % (0-1); Differential Indicated SCAN CRITERIA MET; Eosinophil# 0.02 X10^3/uL; Eosinophils% 0.2 % (0-5); Hematocrit 34.1 % (37-47); Hemoglobin 11.1 g/dL (12.0-15.0); Lymphocyte # 1.36 X10^3/ul (4.0); Lymphocyte % 11.9 % (19-41); Mean Corp Hgb Conc 32.6 g/dL (32-36); Mean Corpuscular Hgb 33.6 pg (27.0-32.0); Mean Corpuscular Volume 103.3 fL (81-99); Mean Platelet Vol. 11.9 fl (6.2-12.0); NRBC Flagged by Analyzer 0.3 % (0-5); Neutrophil # 9.08 X10^3/uL (2.7-7.7); Neutrophil % 79.5 % (47-70); POSITIVE MORPHOLOGY YES; Platelet Count 100 K/mm3 (150-450); RBC Distribution Width CV 12.4 % (11.6-14.6); RBC Distribution Width SD 47.2 fl (35.1-43.9); White Blood Count 11.4 K/mm3 (4.4-11.0)
--- NOTE | 2019-06-25 08:38 | RAD_ITS ---
HISTORY: Right hip pain XR Hip Unilateral with Pelvis when performed; 2-3 Views TECHNIQUE: 3 views # of images incl. paperwork: 3 COMPARISON: None. FINDINGS: BONES/JOINTS: No acute fracture or dislocation. Mild degenerative changes bilateral hip joints. Enthesophytes along the greater trochanter bilaterally. Degenerative changes of lower lumbar spine. SOFT TISSUES: Soft tissues appear unremarkable. Severe ASVD. No radiopaque foreign body. Opacified urinary bladder from previous CT exam with intravenous contrast of 06/24/2019. RAD/HIP, UNI W/ Pelvis 2-3 Views IMPRESSION: 1. No acute fracture. at 2312 Reported and signed by: Fred Carr MD Electronically Signed: Fred Carr MD at 23:10 EDT Tel , Service support ,
--- NOTE | 2019-06-25 08:41 | RAD_ITS ---
STUDY: X-RAY - RIGHT KNEE REASON FOR EXAM: Female, 69 years old. Atraumatic knee pain. TECHNIQUE: 3 view(s) of the knee. COMPARISON: None. FINDINGS: Generalized osteopenia. Normal visualized distal femur. Normal visualized proximal tibia and fibula. Normal proximal tibiofibular articulation. Mild medial compartment arthrosis. Normal lateral femorotibial compartment. Normal patellofemoral articulation. The soft tissue structures are unremarkable. RAD/Knee 3 Views IMPRESSION: Osteopenia with medial compartmental arthrosis. No acute finding. Electronically Signed: Ismael Merino MD at 14:09 EDT , Service support ,
[2019-06-25] MEDS: Gabapentin 100 MG Capsule 200 MG PO ×2 (09:39→21:01)
[2019-06-25] MEDS: Lisinopril 10 MG Tablet PO (09:39)
[2019-06-25] MEDS: Enoxaparin 30 MG/0.3 ML Syringe SC (09:39)
[2019-06-25] MEDS: Aspirin E.C. 81 MG Tablet PO (09:39)
[2019-06-25] MEDS: Pantoprazole Sodium 20 MG Tablet PO (09:39)
[2019-06-25] MEDS: Clopidogrel Bisulfate 75 MG Tablet PO (09:39)
[2019-06-25] MEDS: Calcium (Elemental) 500 MG Tablet PO (09:39)
[2019-06-25] MEDS: Ciprofloxacin 400 MG/200 ML BAG 200 MG IV ×2 (09:40→22:14)
--- NOTE | 2019-06-25 14:54 | PCM.PROGNOTE ---
Subjective: Patient seen and examined. Denies nausea, vomiting, diarrhea. Reports back pain is not improved. Now has right knee pain. She denies back pain with rest however her back pain is 8/10 with movement. She reports her right knee is throbbing and worse with ambulation. - Physical Exam General: Alert, Oriented x3, Cooperative HEENT: Atraumatic, PERRLA, EOMI, Normocephalic Neck: Supple, No JVD, Negative Carotid Bruits Lungs: Clear to auscultation, Normal air movement Cardiovascular: Regular rate, Regular Rhythm, Normal S1, Normal S2, No murmurs Abdomen: Bowel Sounds Present, Soft, Non Tender, Non-Distended, Obese Extremities: No clubbing, No cyanosis, No edema, Capillary Refill Less than 3 Seconds Skin: No rashes, No breakdown Musculoskeletal: Tenderness - Right lower back, right knee Neurological: Cranial nerves II-XII grossly intact, Neuro grossly intact Psych/Mental Status: Normal Affect, Appropriate Vital Signs Temp Pulse Resp BP Pulse Ox 100.0 F H 76 20 H 128/73 H 96 06/25/19 14:34 06/25/19 14:34 06/25/19 14:34 06/25/19 14:34 06/25/19 14:34 Oxygen Flow Rate (L/min) 1 Oxygen Delivery Method Room Air Weight: 200 lb 2.876 oz Body Mass Index (BMI) 36.6 Intake and Output for Last 24 Hours 06/23/19 06/24/19 06/25/19 23:59 23:59 23:59 Intake Total 3425.25 / 3425.25 1618.83 / 1618.83 Output Total 400 / 400 400 / 400 Balance 3025.25 / 3025.25 1218.83 / 1218.83 Microbiology Past 72 Hours 06/24/19 11:55 Blood Culture - Preliminary Blood Culture (Wb) - Anticubital Left 06/24/19 12:10 Blood Culture - Preliminary Blood Culture (Wb) - Venous Laboratory Tests Past 24 Hrs 06/24/19 06/25/19 06/25/19 14:15 06:14 06:14 WBC 11.4 H RBC 3.30 L Hgb 11.1 L Hct 34.1 L MCV 103.3 H MCH 33.6 H MCHC 32.6 RDW Std Deviation 47.2 H RDW Coeff of Lindsey 12.4 Plt Count 100 L MPV 11.9 Immature Gran % (Auto) 1.000 H Neut % (Auto) 79.5 H Lymph % (Auto) 11.9 L [place] % (Auto) 7.0 Eos % (Auto) 0.2 Baso % (Auto) 0.4 Absolute Neuts (auto) 9.1 H Absolute Lymphs (auto) 1.36 Nucleated RBC % 0.3 Differential Comment Not Reportable Sodium 135 L Potassium 3.9 Chloride 106 Carbon Dioxide 20.0 L Anion Gap 9 BUN 15 Creatinine 0.78 Estim Creat Clear Calc 40.81 Est GFR (MDRD) Af Amer 93 Est GFR (MDRD) Non-Af 77 BUN/Creatinine Ratio 19.1 Glucose 136 H Lactic Acid 1.2 Calcium 7.7 L Medical Necessity - Tobacco Use Smoking Status: Never smoker Assessment/Plan 1. Acute sigmoid diverticulitis-CT of abdomen showed acute sigmoid diverticulitis without evidence of perforation or abscess. IV Cipro and IV Flagyl. PRN Zofran for nausea. Clear liquid diet. 2. Intractable lumbar back pain, suspect muscle strain-pain started following [employer] workout. PRN pain regimen. Flexeril and Toradol attempted with no improvement. Gabapentin 200 mg x 1. PT/OT. Obtain MRI of lumbar spine. Hip and pelvis x-ray pending. 3. Right knee pain-x-ray of right knee shows osteopenia with medial compartmental arthrosis, otherwise no acute finding. Suspect pain exacerbated by recent strenuous exercise. PT/OT. PRN pain regimen. 4. Mild dehydration, secondary to #1-improved following IV fluids. 5. CAD status post stents-continue aspirin, statin, Plavix. 6. Sick sinus syndrome status post pacemaker placement-follows with Dr. Rehman. 7. Hypothyroidism-continue home Synthroid regimen. 8. Hypertension- Continue home lisinopril regimen. 9. Hyperlipidemia-continue statin. 10. History of GI bleed-continue home PPI regimen. 11. Obesity-encouraged diet and lifestyle modifications. DVT prophylaxis-Lovenox subcu This patient was seen by MELANIA Tong under the supervision of Dr. Peña.
[2019-06-25 18:26] LABS: Erythrocyte Sedimentation Rate 51 mm/hr (0-30)
[2019-06-25] MEDS: Furosemide 40 MG Tablet PO (21:01)
[2019-06-25] MEDS: Atorvastatin Calcium 20 MG Tablet PO (21:01)
[2019-06-26] MEDS: oxyCODONE 5 MG Tablet PO ×4 (02:07→22:36)
[2019-06-26 02:09] VITALS: BP 155/73; PULSE 90; RESP 18; TEMP 37.1; O2SAT 94
[2019-06-26] MEDS: metroNIDAZOLE 500 MG/100 ML BAG 100 MG IV ×2 (06:08→22:33)
[2019-06-26] MEDS: 0.9% NaCl Peripheral Flush Adult/Peds IV ×7 (06:10→21:21)
[2019-06-26] MEDS: Levothyroxine 100 MCG Tablet PO (06:11)
[2019-06-26 06:50] LABS: Hematocrit 35.1 % (37-47); Hemoglobin 12.1 g/dL (12.0-15.0); Mean Corp Hgb Conc 34.5 g/dL (32-36); Mean Corpuscular Hgb 34.1 pg (27.0-32.0); Mean Corpuscular Volume 98.9 fL (81-99); Mean Platelet Vol. 12.1 fl (6.2-12.0); Platelet Count 133 K/mm3 (150-450); RBC Distribution Width SD 44.3 fl (35.1-43.9); Red Blood Count 3.55 M/mm3 (4.2-5.4); White Blood Count 12.5 K/mm3 (4.4-11.0)
[2019-06-26 07:15] VITALS: O2SAT 93
[2019-06-26 07:15] LABS: Anion Gap 10 (5-15); BUN 12 mg/dL (7-18); BUN/Creat Ratio 15.1 RATIO (10-20); Chloride 101 mmol/L (98-107); Creatinine, Serum 0.79 mg/dL (0.55-1.02); EST Glomerular Filtration Rate 76 mL/min (>60); Est Glom Filt Rate - Afr Amer 92 mL/min (>60); Estimated Creatinine Clearance 40.81 ml/min; Glucose 138 mg/dL (74-106); Potassium 2.9 mmol/L (3.5-5.1); Sodium Level 135 mmol/L (136-145)
[2019-06-26] MEDS: Gabapentin 100 MG Capsule PO ×2 (07:38→14:06)
[2019-06-26 09:00] VITALS: BP 143/73; PULSE 74; RESP 16; TEMP 37.1; O2SAT 96
[2019-06-26] MEDS: 0.9% NaCl IVPB Med Flush (250 mL) 15 ML IV (09:02)
[2019-06-26] MEDS: Calcium (Elemental) 500 MG Tablet PO (09:03)
[2019-06-26] MEDS: Enoxaparin 30 MG/0.3 ML Syringe SC (09:03)
[2019-06-26] MEDS: Ciprofloxacin 400 MG/200 ML BAG 150 MG IV (09:04)
[2019-06-26] MEDS: Lisinopril 10 MG Tablet PO (09:04)
[2019-06-26] MEDS: Aspirin E.C. 81 MG Tablet PO (09:04)
[2019-06-26] MEDS: Clopidogrel Bisulfate 75 MG Tablet PO (09:04)
[2019-06-26] MEDS: Pantoprazole Sodium 20 MG Tablet PO (09:04)
[2019-06-26 09:12] VITALS: PULSE 60
--- NOTE | 2019-06-26 11:16 | PN_ITS ---
<Riddhi Caballero - Last Filed: 06/26/19 11:28> Subjective: Patient seen and examined. Denies nausea, vomiting. Denies diarrhea. Continues to have right lower back pain. Right knee pain improved. - Physical Exam General: Alert, Oriented x3, Cooperative HEENT: Atraumatic, PERRLA, EOMI, Normocephalic Neck: Supple, No JVD, Negative Carotid Bruits Lungs: Clear to auscultation, Normal air movement Cardiovascular: Regular rate, Regular Rhythm, Normal S1, Normal S2, No murmurs Abdomen: Bowel Sounds Present, Soft, Non Tender, Non-Distended, Obese Extremities: No clubbing, No cyanosis, No edema, Capillary Refill Less than 3 Seconds Skin: No rashes, No breakdown Musculoskeletal: Tenderness - Right lower back, right knee Neurological: Cranial nerves II-XII grossly intact, Neuro grossly intact Psych/Mental Status: Normal Affect, Appropriate Vital Signs Temp Pulse Resp BP Pulse Ox 98.7 F 60 16 143/73 H 96 06/26/19 09:00 06/26/19 09:12 06/26/19 09:00 06/26/19 09:00 06/26/19 09:00 Oxygen Flow Rate (L/min) 1.5 Oxygen Delivery Method Nasal Cannula Weight: 200 lb 2.876 oz Body Mass Index (BMI) 36.6 Intake and Output for Last 24 Hours 06/24/19 06/25/19 06/26/19 23:59 23:59 23:59 Intake Total 3425.25 / 3425.25 2709.58 / 2721.08 512.25 / 512.25 Output Total 400 / 400 1600 / 1600 1974 Balance 3025.25 / 3025.25 1109.58 / 1121.08 -1462.75 / -1462.75 Microbiology Past 72 Hours 06/24/19 11:55 Blood Culture - Preliminary Blood Culture (Wb) - Anticubital Left Escherichia coli 06/24/19 12:10 Blood Culture - Preliminary Blood Culture (Wb) - Venous Laboratory Tests Past 24 Hrs 06/25/19 06/25/19 06/26/19 06:14 06:14 05:40 WBC 12.5 H RBC 3.55 L Hgb 12.1 Hct 35.1 L MCV 98.9 MCH 34.1 H MCHC 34.5 RDW Std Deviation 44.3 H RDW Coeff of [place] 12.0 Plt Count 133 L MPV 12.1 H ESR 51 H Sodium Potassium Chloride Carbon Dioxide Anion Gap BUN Creatinine Estim Creat Clear Calc Est GFR (MDRD) Af Amer Est GFR (MDRD) Non-Af BUN/Creatinine Ratio Glucose Calcium C-React Prot Ext Range 264.00 H 06/26/19 05:40 WBC RBC Hgb Hct MCV MCH MCHC RDW Std Deviation RDW Coeff of [place] Plt Count MPV ESR Sodium 135 L Potassium 2.9 L Chloride 101 Carbon Dioxide 24.0 Anion Gap 10 BUN 12 Creatinine 0.79 Estim Creat Clear Calc 40.81 Est GFR (MDRD) Af Amer 92 Est GFR (MDRD) Non-Af 76 BUN/Creatinine Ratio 15.1 Glucose 138 H Calcium 8.0 L C-React Prot Ext Range Medical Necessity - Tobacco Use Smoking Status: Never smoker Assessment/Plan 1. Acute sigmoid diverticulitis-CT of abdomen showed acute sigmoid diverticulitis without evidence of perforation or abscess. IV Cipro and IV Flagyl. PRN Zofran for nausea. Advance diet as tolerated. 2. Intractable lumbar back pain, suspect muscle strain-pain started following [employer] workout. PRN pain regimen. Flexeril and Toradol attempted with no improvement. Gabapentin added. PT/OT. Obtain MRI of lumbar spine. Hip and pelvis x-ray demonstrated no acute fracture or dislocation. 3. Right knee pain-x-ray of right knee shows osteopenia with medial comp artmental arthrosis, otherwise no acute finding. Suspect pain exacerbated by recent strenuous exercise. PT/OT. PRN pain regimen. 4. Mild dehydration, secondary to #1-improved following IV fluids. 5. CAD status post stents-continue aspirin, statin, Plavix. 6. Sick sinus syndrome status post pacemaker placement-follows with Dr. Rehman. 7. Hypothyroidism-continue home Synthroid regimen. 8. Hypertension- Continue home lisinopril regimen. 9. Hyperlipidemia-continue statin. 10. History of GI bleed-continue home PPI regimen. 11. Obesity-encouraged diet and lifestyle modifications. DVT prophylaxis-Lovenox subcu This patient was seen by MELANIA Tong under the supervision of Dr. Barker. <Alexi Barker E - Last Filed: 06/26/19 12:36> - Physical Exam Vital Signs Temp Pulse Resp BP Pulse Ox 98.7 F 60 16 143/73 H 96 06/26/19 09:00 06/26/19 09:12 06/26/19 09:00 06/26/19 09:00 06/26/19 09:00 Oxygen Flow Rate (L/min) 1.5 Oxygen Delivery Method Nasal Cannula Weight: 200 lb 2.876 oz Body Mass Index (BMI) 36.6 Intake and Output for Last 24 Hours 06/24/19 06/25/19 06/26/19 23:59 23:59 23:59 Intake Total 3425.25 / 3425.25 2709.58 / 2721.08 512.25 / 512.25 Output Total 400 / 400 1600 / 1600 1974 Balance 3025.25 / 3025.25 1109.58 / 1121.08 -1462.75 / -1462.75 Microbiology Past 72 Hours 06/24/19 11:55 Blood Culture - Preliminary Blood Culture (Wb) - Anticubital Left Escherichia coli 06/24/19 12:10 Blood Culture - Preliminary Blood Culture (Wb) - Venous Laboratory Tests Past 24 Hrs 06/25/19 06/25/19 06/26/19 06:14 06:14 05:40 WBC 12.5 H RBC 3.55 L Hgb 12.1 Hct 35.1 L MCV 98.9 MCH 34.1 H MCHC 34.5 RDW Std Deviation 44.3 H RDW Coeff of [place] 12.0 Plt Count 133 L MPV 12.1 H ESR 51 H Sodium Potassium Chloride Carbon Dioxide Anion Gap BUN Creatinine Estim Creat Clear Calc Est GFR (MDRD) Af Amer Est GFR (MDRD) Non-Af BUN/Creatinine Ratio Glucose Calcium Magnesium C-React Prot Ext Range 264.00 H 06/26/19 06/26/19 05:40 11:26 WBC RBC Hgb Hct MCV MCH MCHC RDW Std Deviation RDW Coeff of [place] Plt Count MPV ESR Sodium 135 L Potassium 2.9 L Chloride 101 Carbon Dioxide 24.0 Anion Gap 10 BUN 12 Creatinine 0.79 Estim Creat Clear Calc 40.81 Est GFR (MDRD) Af Amer 92 Est GFR (MDRD) Non-Af 76 BUN/Creatinine Ratio 15.1 Glucose 138 H Calcium 8.0 L Magnesium 1.6 C-React Prot Ext Range Assessment/Plan Hospitalist note: I am seeing this patient in conjunction with Riddhi Caballero. I independently seen and examined the patient. Progress note above, laboratory data and imaging studies reviewed and I concur with the above admission and treatment plan. Patient seen and examined today. She is still complaining of right lower back pain especially when she stands up and walk. It sounds to be due to muscle strain/spasm. She denied abdominal pain, nausea, vomiting, diarrhea or constipation today. Blood culture revealed E. coli in 2 bottles. - Physical Exam General: Alert, Oriented x3, Cooperative, No apparent distress. HEENT: Atraumatic, PERRLA, EOMI. Neck: Supple, No JVD, Negative Carotid Bruits, Trachea Midline, Thyroid Normal. Lungs: Clear to auscultation, Normal air movement, No rhonchi, No wheeze, No rales. Cardiovascular: Regular rate, Regular Rhythm, Normal S1, Normal S2, PMI Normal. Abdomen: Bowel Sounds Present, Soft, Non Tender, Non-Distended, No Hepato-splenomegaly. Extremities: Tenderness over the right gluteal region. No clubbing, No cyanosis, No edema Skin: No rashes, No breakdown Neurological: Cranial nerves are intact, neuro grossly intact. Assessment and plan: #1 acute sigmoid diverticulitis: She is on IV ciprofloxacin and Flagyl. She has been afebrile, vital signs are stable. Started on diet today. Blood culture revealed E. coli. Vital cell count is trending up. Plan: Continue same treatment, continue diet. #2 E. coli bacteremia: Probable source is the acute diverticulitis. Urine culture done on admission and was clean without evidence of infection. CT scan abdomen with IV contrast done on admission showed no evidence of abscess formation or perforation. Patient is already on IV ciprofloxacin. Plan to continue same treatment, repeat blood culture today. We may need to consult ID if patient continued to complain of right lower back pain. #3 mild dehydration/hypokalemia: She has been on IV fluids, creatinine and BUN improved. Her potassium still low although she has no more diarrhea. Plan to replace potassium with oral potassium chloride. Serum magnesium was normal. #4 intractable right lumbar back pain: Likely due to muscle strain/spasm. CT scan abdomen revealed no evidence of osseous lesions or fractures. She is on Flexeril and Toradol, no improvement. Started on gabapentin. Plan was to do MRI lumbar spine but she has pacemaker that is not compatible with MRI machine. Plan to do CT scan lumbar spine. #5 other chronic medical problems: Stable, continue current medications as above. This note was generated with [employer]ipel[employer] software. It may contain incorrect words, spelling, and punctuation that were not noted in checking the note before signing. Code Visit Inpatient E&M: 07959 Subs Hosp L3
--- NOTE | 2019-06-26 11:27 | CT_ITS ---
STUDY: CT LUMBAR SPINE WITHOUT CONTRAST REASON FOR EXAM: Female, 69 years old. Right-sided back pain. Recent diverticulitis. RADIATION DOSAGE (If Supplied By Facility): CTDIvol = ( 28.63 ) mGy, DLP = ( 888.95 ) mGycm TECHNIQUE: The patient was scanned in a multi detector CT scanner. High resolution transaxial imaging was performed. Images were obtained from T12-L1 to the sacrococcygeal junction. Sagittal and coronal images were reconstructed. Individualized dose optimization techniques were used for this CT. COMPARISON: CT abdomen and pelvis with IV contrast June 24, 2019. FINDINGS: Normal lumbar lordosis. There is an 11 degree levoscoliosis of the lumbar spine centered at L2-3. There is stable slight retrolisthesis of L3 on L4 and stable grade 1 spondylolisthesis of L4 on L5 Normal morphology of vertebrae of the lumbar spine. There is no demonstrated osseous destructive lesion or acute fracture. Mild degenerative changes noted bilateral sacroiliac joint. L1-2: Left anterolateral endplate spurring. Normal disc height and morphology. Degenerative narrowing of the bilateral facet joints with early anterior periarticular spurring. Normal central canal and bilateral lateral recesses. Normal bilateral intervertebral neural foramina. L2-3: Anterolateral endplate osteophytes. There is some degenerative sub-endplate sclerosis of the endplates. This may accent an oval-shaped site of potential cystic degenerative change in the anterior aspect of the L2 vertebra. 3.5 mm well-corticated cystic degenerative change noted in the left posterior margin of the L3 endplate. Moderately severe disc height narrowing with vacuum phenomenon and wide base lateral disc protrusions. Moderate narrowing of the right facet joint with hypertrophic degenerative periventricular spurring. Borderline anterior and posterior spurring on the left. Normal central canal and bilateral lateral recesses. Mild osseous encroachment on the right intervertebral neural foramen, as well as potential disc irritation of the bilateral exiting nerve roots. L3-4: Anterolateral endplate osteophytes. There is some degenerative subcortical sclerosis of the endplates. Moderately severe disc height narrowing with vacuum phenomenon and wide base lateral disc protrusions. There is near midline posterior marginal disc calcification, and adjacent to this is a gas bubble posterior to the inferior L3 endplate, suggesting a small disc extrusion. Moderate narrowing of the right facet joint with hypertrophic degenerative periventricular spurring. Borderline anterior and posterior spurring on the left. Mild narrowing of the central canal and bilateral lateral recesses. Mild osseous encroachment on the right intervertebral neural foramen, as well as potential disc irritation of the bilateral exiting nerve roots. L4-5: Early bilateral endplate spurring. Moderate to moderately severe disc height narrowing with vacuum phenomenon at communicating disc dehydration. Moderately severe narrowing and notably hypertrophic degenerative arthroses of the bilateral facet joints. There may be some calcification in the right ligamentum flavum. Mild encroachment on the central canal and bilateral lateral recesses. Normal bilateral intervertebral neural foramina. L5-S1: Moderate to large anterolateral endplate osteophytes. There is ill-defined sub-endplate sclerosis of the vertebra. 3 mm cystic degenerative change or small Schmorl's node seen at the anterior S1 endplate just right of midline. Moderately severe disc height narrowing with bilateral disc protrusions. Moderately severe narrowing of the bilateral facet joints with greater hypertrophic degenerative periarticular spurring on the left. Borderline narrowing of the central canal and bilateral lateral recesses. Mild osseous impingement on the bilateral intervertebral neural foramina, slightly greater on the right. Normal visualized paraspinous soft tissue structures. There is some aortoiliac atherosclerotic calcific plaquing. CT/Spine Lumbar without Contrast IMPRESSION: Multilevel degenerative changes, as described above. Electronically Signed: Alexander Amaro MD at 16:56 EDT , Service support ,
[2019-06-26 12:26] LABS: Magnesium 1.6 mg/dL (1.6-2.6)
[2019-06-26] MEDS: metroNIDAZOLE 500 MG/100 ML BAG 75 MG IV (14:06)
[2019-06-26 14:12] VITALS: BP 148/85; PULSE 72; RESP 18; TEMP 37.2; O2SAT 93
[2019-06-26 20:20] VITALS: BP 120/75; PULSE 70; RESP 16; TEMP 36.7; O2SAT 96
[2019-06-26] MEDS: Gabapentin 100 MG Capsule 200 MG PO (20:40)
[2019-06-26] MEDS: Atorvastatin Calcium 20 MG Tablet PO (20:40)
[2019-06-26] MEDS: Furosemide 40 MG Tablet PO (20:40)
[2019-06-26] MEDS: Ciprofloxacin 400 MG/200 ML BAG 200 MG IV (21:21)
[2019-06-26] MEDS: Acetaminophen 325 MG Tablet 650 MG PO (22:37)
[2019-06-27 03:00] VITALS: BP 138/68; PULSE 70; RESP 16; TEMP 36.8; O2SAT 97
[2019-06-27 05:34] LABS: Hematocrit 39.2 % (37-47); Hemoglobin 13.3 g/dL (12.0-15.0); Mean Corp Hgb Conc 33.9 g/dL (32-36); Mean Corpuscular Hgb 33.2 pg (27.0-32.0); Mean Corpuscular Volume 97.8 fL (81-99); Mean Platelet Vol. 11.3 fl (6.2-12.0); Platelet Count 211 K/mm3 (150-450); RBC Distribution Width SD 43.8 fl (35.1-43.9); Red Blood Count 4.01 M/mm3 (4.2-5.4); White Blood Count 13.9 K/mm3 (4.4-11.0)
[2019-06-27 05:59] LABS: Anion Gap 9 (5-15); BUN 12 mg/dL (7-18); BUN/Creat Ratio 16.4 RATIO (10-20); Calcium,Total 8.3 mg/dL (8.5-10.1); Chloride 102 mmol/L (98-107); Creatinine, Serum 0.73 mg/dL (0.55-1.02); EST Glomerular Filtration Rate 83 mL/min (>60); Est Glom Filt Rate - Afr Amer 101 mL/min (>60); Estimated Creatinine Clearance 40.81 ml/min; Glucose 159 mg/dL (74-106); Sodium Level 137 mmol/L (136-145)
[2019-06-27] MEDS: Levothyroxine 100 MCG Tablet PO (06:28)
[2019-06-27] MEDS: Gabapentin 100 MG Capsule PO ×2 (06:28→14:15)
[2019-06-27] MEDS: metroNIDAZOLE 500 MG/100 ML BAG 100 MG IV ×3 (06:28→22:32)
[2019-06-27 07:23] VITALS: O2SAT 95
[2019-06-27 08:18] VITALS: BP 121/76; PULSE 70; RESP 16; TEMP 36.3; O2SAT 96
[2019-06-27] MEDS: Pantoprazole Sodium 20 MG Tablet PO (08:21)
[2019-06-27] MEDS: Clopidogrel Bisulfate 75 MG Tablet PO (08:22)
[2019-06-27] MEDS: Calcium (Elemental) 500 MG Tablet PO (08:22)
[2019-06-27] MEDS: Aspirin E.C. 81 MG Tablet PO (08:22)
[2019-06-27] MEDS: Lisinopril 10 MG Tablet PO (08:22)
--- NOTE | 2019-06-27 08:25 | NURSING ---
am meds given at this time per pt request as she takes them at home
[2019-06-27] MEDS: Ciprofloxacin 400 MG/200 ML BAG 200 MG IV ×2 (10:08→21:06)
[2019-06-27] MEDS: Enoxaparin 30 MG/0.3 ML Syringe SC (10:08)
[2019-06-27] MEDS: oxyCODONE 5 MG Tablet PO ×4 (10:13→22:30)
--- NOTE | 2019-06-27 10:14 | CON.PCM_ITS ---
Problem List (1) Diverticulitis Status: Acute Reason for Consult: (+) bcx Consulted by: Dr. Barker History of Present Illness: The patient is a 69 year old F with pacer in place, presented 06/24 with 3 days of abd pain, nausea, fever, and chills. Pain was progressive, severe, located in R lumber area. Came to ED, started on cipro/flagyl. Pain still present, fever resolved. Pain now intermittent, somewhat improved. Full ROS performed and neg except as noted above. - Medical History Past Medical History (Chronic Problems): Chronic Problems (Last Updated 06/24/19 @ 17:54 by Alexi Barker MD) Sinus node dysfunction (Chronic) Presence of cardiac pacemaker (Chronic 08/10/15) Entrisphere Accolade [facility] [place] Left carotid bruit (Chronic) History of coronary artery stent placement (Chronic 08/09/15) OKR-BFP-Ankf D1 w/ Promus Premier 2.50 mm x 12 mm, DPP-RVB-Bbft-Mid LAD w/ Promus Premier 3.0 mm x 16 mm, AQW-YEU-Dgtb-Mid RCA w/ Promus Premier 4.0 mm x 38 mm. 08/09/15 Atherosclerotic heart disease of [place] coronary artery without angina pectoris (Chronic) ZKH-KBO-Yrnq D1 w/ Promus Premier 2.50 mm x 12 mm, SKJ-ZZI-Ghtj-Mid LAD w/ Promus Premier 3.0 mm x 16 mm, NIN-PTI-Nuys-Mid RCA w/ Promus Premier 4.0 mm x 38 mm. 08/09/15 Hyperlipidemia (Chronic) Nonrheumatic mitral valve regurgitation (Chronic) Nonrheumatic tricuspid (valve) insufficiency (Chronic) HTN (hypertension) (Chronic) Allergies/Adverse Reactions: Allergies doxycycline calcium [From Vibramycin] Allergy (Verified 06/24/19 11:30) Anaphylaxis doxycycline hyclate [From Vibramycin] Allergy (Verified 06/24/19 11:30) Anaphylaxis doxycycline monohydrate [From Vibramycin] Allergy (Verified 06/24/19 11:30) Anaphylaxis erythromycin base Allergy (Verified 06/24/19 11:30) Anaphylaxis Penicillins Allergy (Verified 06/24/19 11:30) Anaphylaxis Sulfa (Sulfonamide Antibiotics) Allergy (Verified 06/24/19 11:30) Anaphylaxis Home Medications: Ambulatory Orders Medication Instructions Recorded Furosemide [Lasix] 40 mg QHS 08/08/15 Multivit-Min/Iron/Folic/Lutein 1 tab PO DAILY 09/03/15 [Centrum Silver Women Tablet] aspirin 81 mg tablet,delayed 81 mg PO QDAY 11/02/17 release latanoprost 0.005 % eye drops 1 drp OPHTHALMIC QDAY 11/03/17 pantoprazole 40 mg tablet,delayed 20 mg PO QDAY tab 11/03/17 release calcium carbonate 500 mg calcium 500 mg PO QDAY tab 05/19/18 (1,250 mg) tablet levothyroxine 100 mcg tablet 100 mcg PO QDAY 05/19/18 lisinopril 10 mg tablet 10 mg PO QDAY #90 tab 09/29/18 clopidogrel 75 mg tablet 75 mg PO DAILY #90 tab 12/26/18 atorvastatin 20 mg tablet 20 mg PO QHS #90 tab 01/02/19 Ondansetron [Zofran Odt] 4 mg PO Q8H PRN PRN #10 tab 06/21/19 - Social History SMOKING STATUS:: Never smoker Vital Signs Temp Pulse Resp BP Pulse Ox 97.4 F L 70 16 121/76 H 96 06/27/19 08:18 06/27/19 08:18 06/27/19 08:18 06/27/19 08:18 06/27/19 08:18 Oxygen Flow Rate (L/min) 1.5 Oxygen Delivery Method Room Air Weight: 90.8 kg Body Mass Index (BMI) 36.6 Microbiology Past 72 Hours 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 06/24/19 11:55 Blood Culture - Final Blood Culture (Wb) - Anticubital Left Escherichia coli Laboratory Tests Past 24 Hrs 06/26/19 06/27/19 06/27/19 11:26 05:00 05:00 WBC 13.9 H RBC 4.01 L Hgb 13.3 Hct 39.2 MCV 97.8 MCH 33.2 H MCHC 33.9 RDW Std Deviation 43.8 RDW Coeff of [place] 12.0 Plt Count 211 MPV 11.3 Sodium 137 Potassium 4.0 Chloride 102 Carbon Dioxide 26.0 Anion Gap 9 BUN 12 Creatinine 0.73 Estim Creat Clear Calc 40.81 Est GFR (MDRD) Af Amer 101 Est GFR (MDRD) Non-Af 83 BUN/Creatinine Ratio 16.4 Glucose 159 H Calcium 8.3 L Magnesium 1.6 - Other Studies Radiology: [] reviewed Other Studies: [] Route of nutrition/ use of supplements: [] Nutritional Intake: [] IV Site: [] Rainey Catheter: [] - Physical Exam General: Alert, Oriented x3, Cooperative, No apparent distress HEENT: Atraumatic, PERRLA, EOMI Neck: Supple, No Nodes Lungs: Clear to auscultation, Normal air movement Cardiovascular: Regular rate, Regular Rhythm Abdomen: Soft, Non Tender, Non-Distended, - - R lower lumbar tenderness to pa lpation Extremities: No edema Skin: No rashes IV Site: Peripheral, without redness Musculoskeletal: No Tenderness to Palpation of Joints or Extremities Neurological: Cranial nerves II-XII grossly intact - Assessment/Plan Antibiotics: [] Assessment/Plan: [] ecoli bacteremia due to diverticulitis - improving. Cont cipro and flagyl, plan on d/c home on po cipro/flagyl. Will follow, thank you.
--- NOTE | 2019-06-27 10:31 | PN_ITS ---
<Riddhi Caballero - Last Filed: 06/27/19 10:39> Patient Problems: Active and Suspected Problems (Last Updated 06/24/19 @ 17:54 by Alexi Barker MD) Diverticulitis (Acute) Subjective: Patient seen and examined. Right lower back pain somewhat improved, reports 5/10 pain with movement. Denies fever, chills. Tolerating diet without difficulty. Denies diarrhea. - Physical Exam General: Alert, Oriented x3, Cooperative HEENT: Atraumatic, PERRLA, EOMI, Normocephalic Neck: Supple, No JVD, Negative Carotid Bruits Lungs: Clear to auscultation, Normal air movement Cardiovascular: Regular rate, Regular Rhythm, Normal S1, Normal S2, No murmurs Abdomen: Bowel Sounds Present, Soft, Non Tender, Non-Distended, Obese Extremities: No clubbing, No cyanosis, No edema, Capillary Refill Less than 3 Seconds Skin: No rashes, No breakdown Musculoskeletal: Tenderness - Right lower back Neurological: Cranial nerves II-XII grossly intact, Neuro grossly intact Psych/Mental Status: Normal Affect, Appropriate Vital Signs Temp Pulse Resp BP Pulse Ox 97.4 F L 70 16 121/76 H 96 06/27/19 08:18 06/27/19 08:18 06/27/19 08:18 06/27/19 08:18 06/27/19 08:18 Oxygen Flow Rate (L/min) 1.5 Oxygen Delivery Method Room Air Weight: 200 lb 2.876 oz Body Mass Index (BMI) 36.6 Intake and Output for Last 24 Hours 06/25/19 06/26/19 06/27/19 23:59 23:59 23:59 Intake Total 2709.58 / 2721.08 956.00 / 1362.75 694.00 / 694.00 Output Total 1600 / 1600 2575 / 2575 Balance 1109.58 / 1121.08 -1619.00 / -1212.25 694.00 / 694.00 Microbiology Past 72 Hours 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 lactose detail assembler 06/24/19 11:55 Blood Culture - Final Blood Culture (Wb) - Anticubital Left Escherichia coli Laboratory Tests Past 24 Hrs 06/26/19 06/27/1919 11:26 05:00 05:00 WBC 13.9 H RBC 4.01 L Hgb 13.3 Hct 39.2 MCV 97.8 MCH 33.2 H MCHC 33.9 RDW Std Deviation 43.8 RDW Coeff of Lindsey 12.0 Plt Count 211 MPV 11.3 Sodium 137 Potassium 4.0 Chloride 102 Carbon Dioxide 26.0 Anion Gap 9 BUN 12 Creatinine 0.73 Estim Creat Clear Calc 40.81 Est GFR (MDRD) Af Amer 101 Est GFR (MDRD) Non-Af 83 BUN/Creatinine Ratio 16.4 Glucose 159 H Calcium 8.3 L Magnesium 1.6 Medical Necessity - Tobacco Use Smoking Status: Never smoker Assessment/Plan All Active Problems (Last Updated 06/24/19 @ 17:54 by Alexi Barker MD) Diverticulitis (Acute) 1. Acute sigmoid diverticulitis with associated E. coli bacteremia-CT of abdomen showed acute sigmoid diverticulitis without evidence of perforation or abscess. IV Cipro and IV Flagyl. PRN Zofran for nausea. Advance diet as tolerated. ID consulted, repeat blood cultures pending. Plan for DC home on oral Cipro and Flagyl pending repeat blood culture results. 2. Intractable lumbar back pain, suspect muscle strain-pain started following [employer] workout. PRN pain regimen. Flexeril and Toradol attempted with no improvement. Gabapentin added. PT/OT. Hip and pelvis x-ray demonstrated no acute fracture or dislocation. Unable to obtain MRI of lumbar spine given pacemaker not compatible. CT of lumbar spine with multilevel degenerative changes. Outpatient follow-up with PT at discharge. 3. Right knee pain-x-ray of right knee shows osteopenia with medial compartmental arthrosis, otherwise no acute finding. Suspect pain exacerbated by recent strenuous exercise. PT/OT. PRN pain regimen. 4. Mild dehydration, secondary to #1-improved following IV fluids. 5. CAD status post stents-continue aspirin, statin, Plavix. 6. Sick sinus syndrome status post pacemaker placement-follows with Dr. Rehman. 7. Hypothyroidism-continue home Synthroid regimen. 8. Hypertension- Continue home lisinopril regimen. 9. Hyperlipidemia-continue statin. 10. History of GI bleed-continue home PPI regimen. 11. Obesity-encouraged diet and lifestyle modifications. DVT prophylaxis-Lovenox subcu Discharge planning: Anticipate discharge home tomorrow on oral Cipro and Flagyl and outpatient PT pending repeat blood cultures/repeat CBC. This patient was seen by MELANIA Tong under the supervision of Dr. Barker. <Alexi Barker E - Last Filed: 06/27/19 10:50> - Physical Exam Vital Signs Temp Pulse Resp BP Pulse Ox 97.4 F L 70 16 121/76 H 96 06/27/19 08:18 06/27/19 08:18 06/27/19 08:18 06/27/19 08:18 06/27/19 08:18 Oxygen Flow Rate (L/min) 1.5 Oxygen Delivery Method Room Air Weight: 200 lb 2.876 oz Body Mass Index (BMI) 36.6 Intake and Output for Last 24 Hours 06/25/19 06/26/19 06/27/19 23:59 23:59 23:59 Intake Total 2709.58 / 2721.08 956.00 / 1362.75 694.00 / 694.00 Output Total 1600 / 1600 2575 / 2575 Balance 1109.58 / 1121.08 -1619.00 / -1212.25 694.00 / 694.00 Microbiology Past 72 Hours 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 lactose detail assembler 06/24/19 11:55 Blood Culture - Final Blood Culture (Wb) - Anticubital Left Escherichia coli Laboratory Tests Past 24 Hrs 06/26/19 06/27/19 06/27/19 11:26 05:00 05:00 WBC 13.9 H RBC 4.01 L Hgb 13.3 Hct 39.2 MCV 97.8 MCH 33.2 H MCHC 33.9 RDW Std Deviation 43.8 RDW Coeff of Lindsey 12.0 Plt Count 211 MPV 11.3 Sodium 137 Potassium 4.0 Chloride 102 Carbon Dioxide 26.0 Anion Gap 9 BUN 12 Creatinine 0.73 Estim Creat Clear Calc 40.81 Est GFR (MDRD) Af Amer 101 Est GFR (MDRD) Non-Af 83 BUN/Creatinine Ratio 16.4 Glucose 159 H Calcium 8.3 L Magnesium 1.6 Assessment/Plan Hospitalist note: I am seeing this patient in conjunction with Riddhi Caballero. I independently seen and examined the patient. Progress note above, laboratory data and imaging studies reviewed and I concur with the above admission and treatment plan. She is still complaining of right lower back pain with some improvement. Denied abdominal pain, nausea or vomiting. She has been tolerating diet. Her vital signs are stable. - Physical Exam General: Alert, Oriented x3, Cooperative, No apparent distress. HEENT: Atraumatic, PERRLA, EOMI. Neck: Supple, No JVD, Negative Carotid Bruits, Trachea Midline, Thyroid Normal. Lungs: Clear to auscultation, Normal air movement, No rhonchi, No wheeze, No rales. Cardiovascular: Regular rate, Regular Rhythm, Normal S1, Normal S2, PMI Normal. Abdomen: Bowel Sounds Present, Soft, Non Tender, Non-Distended, No Hepato- splenomegaly. Extremities: Tenderness over the right gluteal region. No clubbing, No cyanosis, No edema Skin: No rashes, No breakdown Neurological: Cranial nerves are intact, neuro grossly intact. Assessment and plan: #1 acute sigmoid diverticulitis: Remained on IV ciprofloxacin and Flagyl. She has been afebrile, vital signs are stable. She is tolerating diet. Blood culture revealed E. coli. White blood cell count still trending up. Infectious disease consulted, recommended oral Cipro and Flagyl. Plan: Continue same treatment, plan DC home tomorrow. #2 E. coli bacteremia: Probable source is the acute diverticulitis. Urine culture done on admission and was clean without evidence of infection. CT scan abdomen with IV contrast done on admission showed no evidence of abscess formation or perforation. Patient is already on IV ciprofloxacin. Repeat cultures pending. Plan as above. #3 mild dehydration/hypokalemia: She has been on IV fluids, creatinine and BUN improved. BUN and creatinine stabilized, potassium replaced and corrected. #4 intractable right lumbar back pain: Likely due to muscle strain/spasm. CT scan abdomen revealed no evidence of osseous lesions or fractures. CT scan lumbar spine done, revealed degenerative changes, no acute findings. #5 other chronic medical problems: Stable, continue current medications as above. This note was generated with [employer] software. It may contain incorrect words, spelling, and punctuation that were not noted in checking the note before signing. Code Visit Inpatient E&M: 45701 Subs Hosp L2
--- NOTE | 2019-06-27 12:23 | CASEMGMT ---
RN CM Assessment Presentation: Diverticulitis, abdominal pain Intro role of CM and purpose of RN CM assessment to patient in room. Demographics, PCP and Pharmacy verified. Pt states she is generally independent @ home and cares for herself. PCP: Dr. Peng Specialists: Dr. Monroe Pref[facility] Insurance: [facility] Prescription Benefit: yes LNOK: Armin Gale Living Arrangements: Lives independently in two story home. Bedrooms, Bath upstairs, 1/2 bath downstairs. Independent in ADL's per patient. Transportation: drives or can assist with driving DME: toilet side rails, shower chair, grab bars. No ambulatory DME used. HHC: none Patient DC goals: Home on discharge DC PLAN: Home. Pt was using FWW during ambulation with PT/OT due to pain and holding on furniture. If continues to need, will need script for walker on dc. George AKHTAR RN ACM
[2019-06-27 14:00] VITALS: BP 147/78; PULSE 56; RESP 16; TEMP 36.6; O2SAT 98
--- NOTE | 2019-06-27 14:56 | CHAPLAIN ---
Type of Pastoral Visit _x__ Initial Visit ___ Follow-up Visit ___ On-call Visit ___ General Patient Visit ___ Spiritual Assessment ___ Family Conference ___ Bereavement ___ Rapid Response ___ Code Blue ___ Other (describe below) Pastoral Care Referral From _x__ Patient ___ Family ___ Nurse ___ Physician ___ Ball Worker ___ Counterperson ___ Other (describe below) Sacrament/Intervention _x__ Active listening ___ Anointing ___ Anabaptism ___ Bereavement ___ Communion ___ Jania exploration ___ _x__ Life review _x__ Prayer ___ Reconciliation ___ Sacrament of Sick _x__ Supportive presence ___ Wedding ___ Other (describe below) Pastoral Comments
[2019-06-27] MEDS: Morphine 2 MG/ML Syringe 1 MG IV ×2 (15:43→20:03)
[2019-06-27] MEDS: 0.9% NaCl Peripheral Flush Adult/Peds IV (15:43)
[2019-06-27] MEDS: 0.9% NaCl IVPB Med Flush (250 mL) 15 ML IV (17:16)
[2019-06-27] MEDS: Acetaminophen 325 MG Tablet 650 MG PO (17:22)
[2019-06-27 19:55] VITALS: BP 123/72; PULSE 57; RESP 16; TEMP 37.3; O2SAT 97
[2019-06-27] MEDS: Furosemide 40 MG Tablet PO (21:03)
[2019-06-27] MEDS: Atorvastatin Calcium 20 MG Tablet PO (21:03)
[2019-06-27] MEDS: Gabapentin 100 MG Capsule 200 MG PO (21:03)
[2019-06-28 01:50] VITALS: BP 99/60; PULSE 70; RESP 16; TEMP 36.4; O2SAT 99
[2019-06-28] MEDS: Morphine 2 MG/ML Syringe 1 MG IV (04:07)
[2019-06-28] MEDS: Levothyroxine 100 MCG Tablet PO (05:18)
[2019-06-28] MEDS: oxyCODONE 5 MG Tablet PO ×4 (05:18→20:53)
[2019-06-28] MEDS: Gabapentin 100 MG Capsule PO ×2 (05:19→13:14)
[2019-06-28] MEDS: metroNIDAZOLE 500 MG/100 ML BAG 100 MG IV ×2 (05:21→13:14)
[2019-06-28 06:54] VITALS: O2SAT 96
[2019-06-28 06:58] LABS: Hematocrit 41.4 % (37-47); Hemoglobin 14.1 g/dL (12.0-15.0); Mean Corp Hgb Conc 34.1 g/dL (32-36); Mean Corpuscular Hgb 33.8 pg (27.0-32.0); Mean Corpuscular Volume 99.3 fL (81-99); Mean Platelet Vol. 11.1 fl (6.2-12.0); Platelet Count 286 K/mm3 (150-450); RBC Distribution Width CV 12.2 % (11.6-14.6); RBC Distribution Width SD 44.7 fl (35.1-43.9); Red Blood Count 4.17 M/mm3 (4.2-5.4); White Blood Count 18.4 K/mm3 (4.4-11.0)
[2019-06-28 08:47] VITALS: BP 110/52; PULSE 75; RESP 16; TEMP 37; O2SAT 95
[2019-06-28] MEDS: Clopidogrel Bisulfate 75 MG Tablet PO (09:00)
[2019-06-28] MEDS: Enoxaparin 30 MG/0.3 ML Syringe SC (09:00)
[2019-06-28] MEDS: Aspirin E.C. 81 MG Tablet PO (09:00)
[2019-06-28] MEDS: Pantoprazole Sodium 20 MG Tablet PO (09:00)
[2019-06-28] MEDS: Ciprofloxacin 400 MG/200 ML BAG 200 MG IV (09:00)
[2019-06-28] MEDS: Lisinopril 10 MG Tablet PO (09:00)
[2019-06-28] MEDS: Calcium (Elemental) 500 MG Tablet PO (09:00)
[2019-06-28] MEDS: Acetaminophen 325 MG Tablet 650 MG PO ×2 (09:29→22:22)
--- NOTE | 2019-06-28 12:45 | US_ITS ---
STUDY: ABDOMINAL ULTRASOUND - RIGHT UPPER QUADRANT REASON FOR VISIT: Female, 69 years old. Right flank pain. TECHNIQUE: Ultrasound evaluation of the right upper quadrant was performed with real-time and static jaeger-scale imaging. COMPARISON: CT abdomen pelvis 06/24/2019. FINDINGS: Liver: The liver measures 15 cm. There is normal echogenicity of the liver. The bile ducts are within normal limits. There is hepatic color flow. The direction of portal flow is hepatopetal. There is no demonstrated mass lesion. Gallbladder: Normal distended gallbladder. The gallbladder wall measures 3 mm. There is a negative sonographic Myers's sign. There is no pericholecystic fluid. There are no gallstones. Common Bile Duct (C.B.D.): The common bile duct measures 4 mm. Pancreas: Normal size of the head, body and tail of the pancreas. There is normal echogenicity of the pancreas. There is no demonstrated pancreatic mass or cyst. Right Kidney: Normal size of the right kidney. The right kidney measures 10.5 x 4.9 x 6.4 cm. Normal renal cortex. The right cortex measures 1.8 cm. There is no demonstrated renal mass or cyst. There is no right hydronephrosis. US/Abdomen Limited IMPRESSION: Negative RUQ ultrasound. Electronically Signed: Dinesh Ch, at 21:20 EDT Tel , Service support ,
--- NOTE | 2019-06-28 12:48 | PN.ID_ITS ---
Patient Problems: Active and Suspected Problems (Last Updated 06/24/19 @ 17:54 by Alexi Barker MD) Diverticulitis (Acute) Subjective: Feeling better overall, still some intermittent R flank pain. No fever, no dysuria, no n/v/d. - Physical Exam General: Alert, Cooperative, No apparent distress Lungs: Clear to auscultation, Normal air movement Cardiovascular: Regular rate, Regular Rhythm Abdomen: Soft, Non Tender, Non-Distended, - - R flank tenderness Skin: No rashes Vital Signs Temp Pulse Resp BP Pulse Ox 98.6 F 75 16 110/52 L 95 06/28/19 08:47 06/28/19 08:47 06/28/19 08:47 06/28/19 08:47 06/28/19 08:47 Oxygen Flow Rate (L/min) 1.5 Oxygen Delivery Method Room Air Weight: 90.8 kg Body Mass Index (BMI) 36.6 Intake and Output for Last 24 Hours 06/26/19 06/27/19 06/28/19 23:59 23:59 23:59 Intake Total 956.00 / 1362.75 2255.50 / 2495.50 1090.00 / 1090.00 Output Total 2575 / 2575 1200 / 1450 250 / 250 Balance -1619.00 / -1212.25 1055.50 / 1045.50 840.00 / 840.00 Microbiology Past 72 Hours 06/26/19 12:01 Blood Culture - Preliminary Blood Culture (Wb) - Left Wrist No growth in 48 hours. 06/26/19 11:26 Blood Culture - Preliminary Blood Culture (Wb) - Anticubital Right No growth in 48 hours. 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 lactose radiation technician 06/24/19 11:55 Blood Culture - Final Blood Culture (Wb) - Anticubital Left Escherichia coli Laboratory Tests Past 24 Hrs 06/28/19 06:28 WBC 18.4 H RBC 4.17 L Hgb 14.1 Hct 41.4 MCV 99.3 H MCH 33.8 H MCHC 34.1 RDW Std Deviation 44.7 H RDW Coeff of Lindsey 12.2 Plt Count 286 MPV 11.1 Medical Necessity - Tobacco Use Smoking Status: Never smoker Route of nutrition/ use of supplements: [] Nutritional Intake: [] IV Site: [] Rainey Catheter: [] - Assessment/Plan Antibiotics: [] Assessment/Plan: [] ecoli bacteremia due to diverticulitis - improving overall but rising wbc. Cont cipro and flagyl. Will check u/s of retroperitoneum given ongoing pain. If condition worsens, would change abx to meropenem. Will follow, d/w Dr. Barker
--- NOTE | 2019-06-28 12:48 | PCM.PROGNOTE ---
Patient Problems: Active and Suspected Problems (Last Updated 06/24/19 @ 17:54 by Alexi Barker MD) Diverticulitis (Acute) Subjective: Chief complaint: Follow-up after admission for acute sigmoid diverticulitis, E. coli bacteremia, intractable right lower back pain, mild dehydration and hypokalemia. Patient seen and examined. No acute events overnight. She mentioned that this morning, she had an episode of right lower back pain when she stood up to go to the bathroom. Pain got much worse and improved after she received pain medicines. She denies any abdominal pain, nausea vomiting. She denies fever chills. She denies constipation or diarrhea. Her vital signs been stable. - Physical Exam General: Alert, Oriented x3, Cooperative, No apparent distress HEENT: Atraumatic, PERRLA, EOMI, Normocephalic Oral: Moist Mucosa, No Gingival or Mucosal Lesions/ Ulcerations Neck: Supple, No JVD, Negative Carotid Bruits, Trachea Midline, Thyroid Normal Size and Texture Lungs: Clear to auscultation, Normal air movement, No rhonchi, No wheeze, No rales, Diminished Cardiovascular: Regular rate, Regular Rhythm, Normal S1, Normal S2, PMI Normal Abdomen: Bowel Sounds Present, Soft, Non Tender, Non-Distended, No Hepato-splenomegaly Extremities: No clubbing, No cyanosis, No edema Skin: No rashes, No breakdown Musculoskeletal: - Lymphatic: No Cervical, Supraclavicular, or Inguinal Adenopathy Neurological: Cranial nerves II-XII grossly intact, Neuro grossly intact Psych/Mental Status: Normal Affect, Appropriate, Alert and oriented to time, place, person, mood and affect Vital Signs Temp Pulse Resp BP Pulse Ox 98.6 F 75 16 110/52 L 95 06/28/19 08:47 06/28/19 08:47 06/28/19 08:47 06/28/19 08:47 06/28/19 08:47 Oxygen Flow Rate (L/min) 1.5 Oxygen Delivery Method Room Air Weight: 200 lb 2.876 oz Body Mass Index (BMI) 36.6 Intake and Output for Last 24 Hours 06/26/19 06/27/19 06/28/19 23:59 23:59 23:59 Intake Total 956.00 / 1362.75 2255.50 / 2495.50 1090.00 / 1090.00 Output Total 2575 / 2575 1200 / 1450 250 / 250 Balance -1619.00 / -1212.25 1055.50 / 1045.50 840.00 / 840.00 Microbiology Past 72 Hours 06/26/19 12:01 Blood Culture - Preliminary Blood Culture (Wb) - Left Wrist No growth in 48 hours. 06/26/19 11:26 Blood Culture - Preliminary Blood Culture (Wb) - Anticubital Right No growth in 48 hours. 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 lactose manager of internal 06/24/19 11:55 Blood Culture - Final Blood Culture (Wb) - Anticubital Left Escherichia coli Laboratory Tests Past 24 Hrs 06/28/19 06:28 WBC 18.4 H RBC 4.17 L Hgb 14.1 Hct 41.4 MCV 99.3 H MCH 33.8 H MCHC 34.1 RDW Std Deviation 44.7 H RDW Coeff of Lindsey 12.2 Plt Count 286 MPV 11.1 Medical Necessity - Tobacco Use Smoking Status: Never smoker Assessment/Plan All Active Problems (Last Updated 06/24/19 @ 17:54 by Alexi Barker MD) Diverticulitis (Acute) This is a 69 years old male patient presented to the emergency room because of right lower back pain, found to have acute sigmoid diverticulitis complicated by E. coli bacteremia and her pain was attributed to musculoskeletal pain likely due to muscle strain/spasm but she is still symptomatic. #1 acute sigmoid diverticulitis: Remained on IV ciprofloxacin and Flagyl. She has been afebrile, vital signs are stable. She is tolerating diet. Blood culture revealed E. coli. White blood cell count is still trending up but patient has been afebrile. Infectious disease on the case. Plan for retroperitoneal ultrasound, continue same treatment. #2 E. coli bacteremia: Probable source is the acute diverticulitis. She is on IV ciprofloxacin and Flagyl as above. She has been afebrile, leukocytosis is worsening. Repeat blood culture showed no growth in 48 hours. Plan as above. #3 mild dehydration/hypokalemia: IV fluids discontinued, creatinine and BUN normalized. Potassium replaced and corrected. #4 intractable right lumbar back pain: Likely due to muscle strain/spasm. CT scan abdomen revealed no evidence of osseous lesions or fractures. CT scan lumbar spine done, revealed degenerative changes, no acute findings. Patient still symptomatic, no improvement especially upon ambulation. Plan for retroperitoneal ultrasound as above. #5 CAD status post stents: Stable, continue aspirin, statins, Plavix, lisinopril. #6 sick sinus syndrome: Status post pacemaker. Heart rate stable, blood pressure stable. #7 hypertension: Blood pressure stable, continue Lasix, lisinopril. #8 hypothyroidism: Continue levothyroxine. #9 DVT prophylaxis: Subcu Lovenox. This note was generated with [employer] dictation software. It may contain incorrect words, spelling, and punctuation that were not noted in checking the note before signing. Code Visit Inpatient E&M: 77912 Subs Hosp L2
[2019-06-28 14:47] VITALS: BP 100/49; PULSE 77; RESP 16; TEMP 36.6; O2SAT 98
[2019-06-28] MEDS: 0.9% NaCl Peripheral Flush Adult/Peds IV (20:54)
[2019-06-28] MEDS: Atorvastatin Calcium 20 MG Tablet PO (20:58)
[2019-06-28] MEDS: Gabapentin 100 MG Capsule 200 MG PO (20:58)
[2019-06-28] MEDS: Furosemide 40 MG Tablet PO (20:58)
[2019-06-28 21:08] VITALS: BP 141/50; PULSE 76; RESP 18; TEMP 37.2; O2SAT 96
--- NOTE | 2019-06-28 21:40 | NURSING ---
Attempted to restart her IV X2 unsuccessful.
--- NOTE | 2019-06-28 23:00 | PCM.PN.BLA ---
Progress Note Because of difficulty in getting a new IV access after previous IV access went bad IV Cipro and IV Flagyl has been changed to p.o. Cipro and p.o. Flagyl.
[2019-06-29] MEDS: metroNIDAZOLE 500 MG Tablet PO ×3 (00:02→14:03)
[2019-06-29] MEDS: Ciprofloxacin 500 MG Tablet PO ×2 (00:03→14:02)
[2019-06-29] MEDS: oxyCODONE 5 MG Tablet PO ×4 (01:28→14:02)
[2019-06-29] MEDS: Levothyroxine 100 MCG Tablet PO (05:24)
[2019-06-29] MEDS: Gabapentin 100 MG Capsule PO ×2 (05:24→14:03)
[2019-06-29 05:32] VITALS: BP 134/62; PULSE 72; RESP 16; TEMP 37.3; O2SAT 95
[2019-06-29 06:41] LABS: Absolute Neutrophil Count 18.5 X10^3/uL (2.0-7.7); Basophil# 0.09 X10^3/uL; Basophil% 0.4 % (0-1); Eosinophil# 0.06 X10^3/uL; Eosinophils% 0.3 % (0-5); Hematocrit 41.7 % (37-47); Hemoglobin 14.2 g/dL (12.0-15.0); Lymphocyte % 10.7 % (19-41); Mean Corp Hgb Conc 34.1 g/dL (32-36); Mean Corpuscular Hgb 33.3 pg (27.0-32.0); Mean Corpuscular Volume 97.7 fL (81-99); Monocyte# 0.85 X10^3/uL; Monocyte% 3.8 % (0-10); NRBC Flagged by Analyzer 0 % (0-5); Neutrophil # 18.54 X10^3/uL (2.7-7.7); Neutrophil % 82.5 % (47-70); Platelet Count 311 K/mm3 (150-450); RBC Distribution Width CV 12.3 % (11.6-14.6); RBC Distribution Width SD 44.1 fl (35.1-43.9); Red Blood Count 4.27 M/mm3 (4.2-5.4); White Blood Count 22.5 K/mm3 (4.4-11.0)
[2019-06-29 06:44] VITALS: O2SAT 96
[2019-06-29] MEDS: Acetaminophen 325 MG Tablet 650 MG PO (08:52)
[2019-06-29] MEDS: Calcium (Elemental) 500 MG Tablet PO (08:53)
[2019-06-29] MEDS: Clopidogrel Bisulfate 75 MG Tablet PO (08:54)
[2019-06-29] MEDS: Lisinopril 10 MG Tablet PO (08:54)
[2019-06-29] MEDS: Pantoprazole Sodium 20 MG Tablet PO (08:54)
[2019-06-29] MEDS: Aspirin E.C. 81 MG Tablet PO (08:55)
[2019-06-29] MEDS: Enoxaparin 30 MG/0.3 ML Syringe SC (09:56)
[2019-06-29 09:59] VITALS: BP 122/61; PULSE 78; RESP 18; TEMP 36.6; O2SAT 98
--- NOTE | 2019-06-29 10:29 | CT_ITS ---
STUDY: CT ABDOMEN AND PELVIS WITH CONTRAST REASON FOR EXAM: Female, 69 years old. Right low back pain, worsening leukocytosis. History of diverticulitis with bowel resection. RADIATION DOSAGE (If Supplied By Facility): CTDIvol = ( 25.33 ) mGy, DLP = ( 1182.25 ) mGycm TECHNIQUE: Transaxial images were obtained from the dome of the diaphragm to the symphysis pubis without oral contrast. 100mL IV/Oral Isovue 300 was administered. Sagittal and coronal images were reconstructed. Individualized dose optimization techniques were used for this CT. COMPARISON: CT abdomen and pelvis with IV contrast June 24, 2019; right upper quadrant ultrasound June 28, 2019. FINDINGS: Stable minor subsegmental atelectasis or scarring in the left lung base. Leads of a cardiac pacemaker again noted in the right heart. Normal liver. The patent portal vein diameter is 14 mm. Normal gallbladder and extrahepatic biliary system. The diameter of the common bile duct to 7 mm. Normal spleen. Normal pancreas. Normal bilateral adrenal glands. Nonobstructing 1-2 mm stone versus atherosclerotic vascular calcification again seen in the lower pole of the right kidney. Normal left kidney. No hydronephrosis. Normal visualized stomach. Normal small intestine. Anastomotic suture line is again seen at the proximal right colon. This segment is now distended with fecal material, which may in part reflect some local denervation. There is sigmoid diverticulosis, with thickening of the colon wall and pericolonic inflammation, consistent with acute diverticulitis. There are a few gas bubbles in the adjacent mesentery suggesting a microperforation, but no defined collection/abscess and no free gas beneath the diaphragm. There may be a few small reactive lymph nodes in the adjacent mesentery. There is non-visualization of the appendix. There is stable mild atherosclerotic calcification of the abdominal aorta and proximal iliac arteries, without a demonstrated aneurysm. Normal inferior vena cava. Normal retroperitoneum. Normal urinary bladder. There is atrophy of the uterus. There is a stable 9.85 x 6.1 x 3.55 cm fat-containing hernia through a 4.3 cm midline defect of the infraumbilical anterior abdominal wall, extending to the left of midline. There is mild edematous or ecchymotic stranding in the subcutis tissues of the lateral abdominal and pelvic nichols. Small gas bubble in the subcutaneous tissues of the anterolateral right abdominal wall may be a local injection site. There are stable multilevel degenerative changes of the lower thoracic and mid to lower lumbar spine, including a grade 1 L4-[address]/Abdomen/Pelvis WITH Contrast IMPRESSION: 1. Acute sigmoid diverticulitis with microperforation allowing for a few gas bubbles into the adjacent mesentery. No defined extraluminal collection/abscess. 2. Suture ring again seen at the right colon. There is moderate fecal distention in this segment, which may reflect local denervation. No small bowel obstruction. The appendix is not visualized, likely absent. 3. There is edematous or ecchymotic stranding and subcutaneous metastases of the lateral abdominal and pelvic nichols. 4. Stable midline defect of the infraumbilical anterior abdominal wall allowing for a 9 cm fat-containing hernia that projects to the left of midline. 5. Stable mild aortoiliac atherosclerotic calcific plaquing. 6. Stable 1-2 mm nonobstructing stone versus calcific plaque at the lower pole of the right kidney. No hydronephrosis. Electronically Signed: Alexander Amaro MD at 13:55 EDT , Service support ,
--- NOTE | 2019-06-29 10:40 | PCM.PN.ID ---
Patient Problems: Active and Suspected Problems (Last Updated 06/24/19 @ 17:54 by Alexi Barker MD) Diverticulitis (Acute) Subjective: Trouble sleeping, still a lot of pain in R side. No fever, no n/v/d. - Physical Exam General: Alert, Cooperative, No apparent distress Lungs: Clear to auscultation, Normal air movement Cardiovascular: Regular rate, Regular Rhythm Abdomen: Soft, Non-Distended, - - R flank pain Vital Signs Temp Pulse Resp BP Pulse Ox 97.8 F 78 18 122/61 H 98 06/29/19 09:59 06/29/19 09:59 06/29/19 09:59 06/29/19 09:59 06/29/19 09:59 Oxygen Flow Rate (L/min) 1.5 Oxygen Delivery Method Room Air Weight: 90.8 kg Body Mass Index (BMI) 36.6 Intake and Output for Last 24 Hours 06/27/19 06/28/19 06/29/19 23:59 23:59 23:59 Intake Total 2255.50 / 2495.50 1190.00 / 1190.00 1000 / 1000 Output Total 1200 / 1450 250 / 250 Balance 1055.50 / 1045.50 940.00 / 940.00 1000 / 1000 Microbiology Past 72 Hours 06/26/19 12:01 Blood Culture - Preliminary Blood Culture (Wb) - Left Wrist No growth in 48 hours. 06/26/19 11:26 Blood Culture - Preliminary Blood Culture (Wb) - Anticubital Right No growth in 48 hours. 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 lactose centrifugal extractor operator 06/24/19 11:55 Blood Culture - Final Blood Culture (Wb) - Anticubital Left Escherichia coli Laboratory Tests Past 24 Hrs 06/29/19 06:25 WBC 22.5 H RBC 4.27 Hgb 14.2 Hct 41.7 MCV 97.7 MCH 33.3 H MCHC 34.1 RDW Std Deviation 44.1 H RDW Coeff of Lindsey 12.3 Plt Count 311 MPV 11.0 Immature Gran % (Auto) 2.300 H Neut % (Auto) 82.5 H Lymph % (Auto) 10.7 L [place] % (Auto) 3.8 Eos % (Auto) 0.3 Baso % (Auto) 0.4 Absolute Neuts (auto) 18.5 H Absolute Lymphs (auto) 2.40 Nucleated RBC % 0 Medical Necessity - Tobacco Use Smoking Status: Never smoker Route of nutrition/ use of supplements: [] Nutritional Intake: [] IV Site: [] Rainey Catheter: [] - Assessment/Plan Antibiotics: [] Assessment/Plan: [] ecoli bacteremia due to diverticulitis - improving overall but rising wbc. Cont cipro and flagyl. Check CT today. Will follow, d/w Dr. Barker
--- NOTE | 2019-06-29 10:43 | PN_ITS ---
Patient Problems: Active and Suspected Problems (Last Updated 06/24/19 @ 17:54 by Alexi Barker MD) Diverticulitis (Acute) Subjective: Chief complaint: Follow-up after admission for acute sigmoid diverticulitis, E. coli bacteremia, intractable right lower back pain, mild dehydration and hypokalemia. Patient seen and examined. No acute events overnight. She still complaining of right lower back pain and also last night, had right knee pain. Denies abdominal pain, nausea or vomiting. She has been voiding diet although she has poor appetite. She denies fever chills. Her vital signs are stable. - Physical Exam General: Alert, Oriented x3, Cooperative, No apparent distress HEENT: Atraumatic, PERRLA, EOMI, Normocephalic Oral: Moist Mucosa, No Gingival or Mucosal Lesions/ Ulcerations Neck: Supple, No JVD, Negative Carotid Bruits, Trachea Midline, Thyroid Normal Size and Texture Lungs: Clear to auscultation, Normal air movement, No rhonchi, No wheeze, No rales Cardiovascular: Regular rate, Regular Rhythm, Normal S1, Normal S2, PMI Normal Abdomen: Bowel Sounds Present, Soft, Non Tender, Non-Distended, No Hepato-splenomegaly Extremities: No clubbing, No cyanosis, No edema Skin: No rashes, No breakdown Musculoskeletal: - - Minimal tenderness over the right gluteus andria Lymphatic: No Cervical, Supraclavicular, or Inguinal Adenopathy Neurological: Cranial nerves II-XII grossly intact, Motor Exam 5/5 strength throughout Psych/Mental Status: Normal Affect, Appropriate, Alert and oriented to time, place, person, mood and affect Vital Signs Temp Pulse Resp BP Pulse Ox 97.8 F 78 18 122/61 H 98 06/29/19 09:59 06/29/19 09:59 06/29/19 09:59 06/29/19 09:59 06/29/19 09:59 Oxygen Flow Rate (L/min) 1.5 Oxygen Delivery Method Room Air Weight: 200 lb 2.876 oz Body Mass Index (BMI) 36.6 Intake and Output for Last 24 Hours 06/27/19 06/28/19 06/29/19 23:59 23:59 23:59 Intake Total 2255.50 / 2495.50 1190.00 / 1190.00 1000 / 1000 Output Total 1200 / 1450 250 / 250 Balance 1055.50 / 1045.50 940.00 / 940.00 1000 / 1000 Microbiology Past 72 Hours 06/26/19 12:01 Blood Culture - Preliminary Blood Culture (Wb) - Left Wrist No growth in 48 hours. 06/26/19 11:26 Blood Culture - Preliminary Blood Culture (Wb) - Anticubital Right No growth in 48 hours. 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 06/24/19 11:55 Blood Culture - Final Blood Culture (Wb) - Anticubital Left Escherichia coli Laboratory Tests Past 24 Hrs 06/29/19 06:25 WBC 22.5 H RBC 4.27 Hgb 14.2 Hct 41.7 MCV 97.7 MCH 33.3 H MCHC 34.1 RDW Std Deviation 44.1 H RDW Coeff of Lindsey 12.3 Plt Count 311 MPV 11.0 Immature Gran % (Auto) 2.300 H Neut % (Auto) 82.5 H Lymph % (Auto) 10.7 L [place] % (Auto) 3.8 Eos % (Auto) 0.3 Baso % (Auto) 0.4 Absolute Neuts (auto) 18.5 H Absolute Lymphs (auto) 2.40 Nucleated RBC % 0 Medical Necessity - Tobacco Use Smoking Status: Never smoker Assessment/Plan All Active Problems (Last Updated 06/24/19 @ 17:54 by Alexi Barker MD) Diverticulitis (Acute) This is a 69 years old male patient presented to the emergency room because of right lower back pain, found to have acute sigmoid diverticulitis complicated by E. coli bacteremia and her pain was attributed to musculoskeletal pain but she is still having significant pain and worsening leukocytosis. #1 acute sigmoid diverticulitis: Now, she is on oral ciprofloxacin and Flagyl. She has been afebrile, vital signs are stable. She is tolerating diet. Blood culture revealed E. coli. White blood cell count still worsening but patient has been afebrile. Infectious disease on the case. Right upper quadrant ultrasound performed yesterday and was unremarkable. Plan: CT scan abdomen and pelvis with both oral and IV contrast, repeat CBC and BMP tomorrow morning. #2 E. coli bacteremia: Probable source is the acute diverticulitis. She is on oral ciprofloxacin and Flagyl as above. She has been afebrile, leukocytosis is worsening. Repeat blood culture showed no growth in 48 hours. Plan as above. #3 mild dehydration/hypokalemia: IV fluids discontinued, creatinine and BUN normalized. Resolved. #4 intractable right lumbar back pain: Attributed to muscle strain/spasm but patient still symptomatic. CT scan abdomen revealed no evidence of osseous lesions or fractures. CT scan lumbar spine done, revealed degenerative changes, no acute findings. Plan for CT scan abdomen and pelvis with both IV and oral contrast today. #5 CAD status post stents: Stable, continue aspirin, statins, Plavix, lisinopril. #6 sick sinus syndrome: Status post pacemaker. Heart rate stable, blood pressure stable. #7 hypertension: Blood pressure stable, continue Lasix, lisinopril. #8 hypothyroidism: Continue levothyroxine. #9 DVT prophylaxis: Subcu Lovenox. This note was generated with [employer] dictation software. It may contain incorrect words, spelling, and punctuation that were not noted in checking the note before signing. Code Visit Inpatient E&M: 38675 Subs Hosp L2
--- NOTE | 2019-06-29 11:45 | NURSING ---
spoke with Sergio Pharmacist- states to hold cipro until about 1 hr after done with oral ct contrast.
--- NOTE | 2019-06-29 15:05 | CON.PCM_ITS ---
Problem List (1) Diverticulitis Status: Acute Reason for Consult Date of Consultation: 06/29/19 Reason for Consultation: Perforated diverticulitis History of Present Illness: The patient is a 69 year old F who was admitted on June 24 with diverticulitis. Her white count has slowly been increasing despite antibiotics. Her CT was repeated today which showed diverticulitis with microperforation. She is not having any abdominal pain. She says she is passing flatus with no pain. She had been tolerating a diet. She is complaining of right flank pain. She has no fevers or chills. She says she had a history of partial colectomy in 2011. Past Medical History Past Medical History (Chronic Problems): Chronic Problems (Last Updated 06/24/19 @ 17:54 by Alexi Barker MD) Sinus node dysfunction (Chronic) Presence of cardiac pacemaker (Chronic 08/10/15) [employer] Left carotid bruit (Chronic) History of coronary artery stent placement (Chronic 08/09/15) TPB-WDI-Feqj D1 w/ Promus Premier 2.50 mm x 12 mm, GOW-YCI-Kpno-Mid LAD w/ Promus Premier 3.0 mm x 16 mm, JDV-GWW-Dpwx-Mid RCA w/ Promus Premier 4.0 mm x 38 mm. 08/09/15 Atherosclerotic heart disease of [place] coronary artery without angina pectoris (Chronic) GHV-YVL-Hcrk D1 w/ Promus Premier 2.50 mm x 12 mm, PVX-UCG-Bpai-Mid LAD w/ Promus Premier 3.0 mm x 16 mm, NIZ-MQS-Qrke-Mid RCA w/ Promus Premier 4.0 mm x 38 mm. 08/09/15 Hyperlipidemia (Chronic) Nonrheumatic mitral valve regurgitation (Chronic) Nonrheumatic tricuspid (valve) insufficiency (Chronic) HTN (hypertension) (Chronic) Medical History: Medical History (Last Updated 06/24/19 @ 17:54 by Alexi Barker MD) Sinus node dysfunction (Chronic) I49.5 Atherosclerotic heart disease of [place] coronary artery without angina pectoris (Chronic) I25.10 EYY-CHZ-Kohu D1 w/ Promus Premier 2.50 mm x 12 mm, GOK-PBF-Xrsq-Mid LAD w/ Promus Premier 3.0 mm x 16 mm, LXY-VCE-Kmgx-Mid RCA w/ Promus Premier 4.0 mm x 38 mm. 08/09/15 Hyperlipidemia (Chronic) E78.5 Nonrheumatic mitral valve regurgitation (Chronic) I34.0 Nonrheumatic tricuspid (valve) insufficiency (Chronic) I36.1 HTN (hypertension) (Chronic) I10 Hypothyroidism E03.9 Osteoarthritis M19.90 GI bleed K92.2 Allergies doxycycline calcium [From Vibramycin] Allergy (Verified 06/24/19 11:30) Anaphylaxis doxycycline hyclate [From Vibramycin] Allergy (Verified 06/24/19 11:30) Anaphylaxis doxycycline monohydrate [From Vibramycin] Allergy (Verified 06/24/19 11:30) Anaphylaxis erythromycin base Allergy (Verified 06/24/19 11:30) Anaphylaxis Penicillins Allergy (Verified 06/24/19 11:30) Anaphylaxis Sulfa (Sulfonamide Antibiotics) Allergy (Verified 06/24/19 11:30) Anaphylaxis Home Medications: Ambulatory Orders Medication Instructions Recorded Furosemide [Lasix] 40 mg QHS 08/08/15 Multivit-Min/Iron/Folic/Lutein 1 tab PO DAILY 09/03/15 [Centrum Silver Women Tablet] aspirin 81 mg tablet,delayed 81 mg PO QDAY 11/02/17 release latanoprost 0.005 % eye drops 1 drp OPHTHALMIC QDAY 11/03/17 pantoprazole 40 mg tablet,delayed 20 mg PO QDAY tab 11/03/17 release calcium carbonate 500 mg calcium 500 mg PO QDAY tab 05/19/18 (1,250 mg) tablet levothyroxine 100 mcg tablet 100 mcg PO QDAY 05/19/18 lisinopril 10 mg tablet 10 mg PO QDAY #90 tab 09/29/18 clopidogrel 75 mg tablet 75 mg PO DAILY #90 tab 12/26/18 atorvastatin 20 mg tablet 20 mg PO QHS #90 tab 01/02/19 Ondansetron [Zofran Odt] 4 mg PO Q8H PRN PRN #10 tab 06/21/19 Surgical History: Surgical History (Last Reviewed 11/22/18 @ 09:24 by Kaity Lambert) Presence of cardiac pacemaker (Chronic) Onset Date: 08/10/15 Z95.0 [employer] [address] History of coronary artery stent placement (Chronic) Onset Date: 08/09/15 Z95.5 EMU-RRL-Rqay D1 w/ Promus Premier 2.50 mm x 12 mm, HWM-VIJ-Bnbj-Mid LAD w/ P romus Premier 3.0 mm x 16 mm, FXP-ODL-Qlwr-Mid RCA w/ Promus Premier 4.0 mm x 38 mm. 08/09/15 Surgical History: colectomy - On account of diverticulitis in 2007., pacemaker implantation, - - Cardiac stents Psychiatric History: No pertinent psych hx [employer] History: No pertinent [employer] history Lives: Spouse/ Significant Other Smoking Status: Never smoker Alcohol: None Drugs: None - *Family History Paternal Family History: Family History (Last Updated 11/22/18 @ 09:24 by Kaity Lambert) Other Diabetes History Items: - - Denies known paternal medical history including cardiac history. Maternal Family History: Family History (Last Updated 11/22/18 @ 09:24 by Kaity Lambert) Other Diabetes History Items: - - Denies known paternal medical history including cardiac history. Review of Systems Constitutional: Denies: Anorexia, Fever Cardiovascular: Denies: Chest Pain Respiratory: Denies: Cough, Shortness of Breath Gastrointestinal: Denies: Abdominal Pain, Diarrhea, Hematemesis, Hematochezia, Nausea, Vomiting Genitourinary: Reports: - - Right flank pain Musculoskeletal: Denies: Joint swelling Skin: Denies: Dryness Psychiatric: Denies: Anxiety Hematologic/ Lymphatic: Denies: Anemia Patient Problems: Active and Suspected Problems (Last Updated 06/24/19 @ 17:54 by Alexi Barker MD) Diverticulitis (Acute) - Physical Exam General: Alert, Oriented x3 HEENT: Atraumatic Neck: No JVD Lungs: Normal air movement Cardiovascular: Regular rate, Regular Rhythm Abdomen: Soft, Non Tender, Non-Distended Extremities: No clubbing Skin: No rashes Musculoskeletal: No Muscle Wasting Neurological: Cranial nerves II-XII grossly intact Psych/Mental Status: Normal Affect Vital Signs Temp Pulse Resp BP Pulse Ox 97.8 F 78 18 122/61 H 98 06/29/19 09:59 06/29/19 09:59 06/29/19 09:59 06/29/19 09:59 06/29/19 09:59 Oxygen Flow Rate (L/min) 1.5 Oxygen Delivery Method Room Air Weight: 200 lb 2.876 oz Body Mass Index (BMI) 36.6 Intake and Output for Last 24 Hours 06/27/19 06/28/19 06/29/19 23:59 23:59 23:59 Intake Total 2255.50 / 2495.50 1190.00 / 1190.00 1000 / 1000 Output Total 1200 / 1450 250 / 250 Balance 1055.50 / 1045.50 940.00 / 940.00 1000 / 1000 Microbiology Past 72 Hours 06/26/19 12:01 Blood Culture - Preliminary Blood Culture (Wb) - Left Wrist No growth in 48 hours. 06/26/19 11:26 Blood Culture - Preliminary Blood Culture (Wb) - Anticubital Right No growth in 48 hours. 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 Electronically Signed: Dinesh Ch, at 21:20 EDT Tel , Service support , Abdomen/Pelvis CT 06/29/19 10:29 IMPRESSION: 1. Acute sigmoid diverticulitis with microperforation allowing for a few gas bubbles into the adjacent mesentery. No defined extraluminal collection/abscess. 2. Suture ring again seen at the right colon. There is moderate fecal distention in this segment, which may reflect local denervation. No small bowel obstruction. The appendix is not visualized, likely absent. 3. There is edematous or ecchymotic stranding and subcutaneous metastases of the lateral abdominal and pelvic nichols. 4. Stable midline defect of the infraumbilical anterior abdominal wall allowing for a 9 cm fat-containing hernia that projects to the left of midline. 5. Stable mild aortoiliac atherosclerotic calcific plaquing. 6. Stable 1-2 mm nonobstructing stone versus calcific plaque at the lower pole of the right kidney. No hydronephrosis. Electronically Signed: Alexander Amaro MD at 13:55 EDT , Service support , Assessment/Plan All Active Problems (Last Updated 06/24/19 @ 17:54 by Alexi Barker MD) Diverticulitis (Acute) 69-year-old female with microperforation diverticulitis 1. The patient has been admitted since June 24. The patient's white count has been slowly increasing despite Cipro and Flagyl. Her antibiotics have been switched to meropenem today. Her CT was repeated today and showed diverticulitis with microperforation. I have made the patient n.p.o. she has not had any bowel rest since presenting to the hospital. 2. I have also held her Plavix in case surgery is needed. Patient had heart stents in 2014. 3. I discussed with the patient that surgery may be needed. She has had a history of bowel resection in 2011 and it appears that her right colon was resected. The patient is currently not having any abdominal pain and is passing flatus with no pain. I would like to keep her n.p.o. to give her bowel rest to try to seal this perforation. Recheck CBC in the morning to see if white count is responding to meropenem. Pravin Pires MD Pager: [facility] [address] [place] [address], [address] [place] [address] Office:
[2019-06-29] MEDS: 0.9% Normal Saline 1,000 ML 100 ML IV (15:24)
[2019-06-29 15:31] VITALS: BP 125/71; PULSE 70; RESP 18; TEMP 36.8; O2SAT 93
[2019-06-29] MEDS: 0.9% NaCl Peripheral Flush Adult/Peds IV (17:50)
[2019-06-29] MEDS: Morphine 2 MG/ML Syringe 1 MG IV (17:50)
[2019-06-29] MEDS: Furosemide 40 MG Tablet PO (17:53)
[2019-06-29 20:44] VITALS: BP 119/69; PULSE 70; RESP 18; TEMP 37.1; O2SAT 98
[2019-06-29] MEDS: Gabapentin 100 MG Capsule 200 MG PO (21:07)
[2019-06-29] MEDS: Atorvastatin Calcium 20 MG Tablet PO (21:08)
[2019-06-30] MEDS: oxyCODONE 5 MG Tablet PO ×3 (00:29→15:52)
[2019-06-30 03:06] VITALS: BP 141/70; PULSE 76; RESP 18; TEMP 37.6; O2SAT 96
[2019-06-30] MEDS: Levothyroxine 100 MCG Tablet PO (05:50)
[2019-06-30] MEDS: Gabapentin 100 MG Capsule PO ×2 (05:50→14:42)
[2019-06-30 07:47] LABS: Absolute Lymphocyte Count 1.73 X10^3/uL (0.83-4.51); Absolute Neutrophil Count 13.1 X10^3/uL (2.0-7.7); Basophil# 0.04 X10^3/uL; Basophil% 0.2 % (0-1); Eosinophil# 0.06 X10^3/uL; Eosinophils% 0.4 % (0-5); Hematocrit 37.9 % (37-47); Hemoglobin 12.9 g/dL (12.0-15.0); Lymphocyte # 1.73 X10^3/ul (4.0); Lymphocyte % 10.7 % (19-41); Mean Corpuscular Hgb 33.6 pg (27.0-32.0); Mean Corpuscular Volume 98.7 fL (81-99); Mean Platelet Vol. 10.2 fl (6.2-12.0); Monocyte# 0.95 X10^3/uL; Monocyte% 5.9 % (0-10); NRBC Flagged by Analyzer 0 % (0-5); Neutrophil # 13.05 X10^3/uL (2.7-7.7); Neutrophil % 81.1 % (47-70); Platelet Count 343 K/mm3 (150-450); RBC Distribution Width CV 12.4 % (11.6-14.6); Red Blood Count 3.84 M/mm3 (4.2-5.4); White Blood Count 16.1 K/mm3 (4.4-11.0)
[2019-06-30 08:12] VITALS: BP 128/55; PULSE 73; RESP 16; TEMP 37.3; O2SAT 95
--- NOTE | 2019-06-30 08:16 | NURSING ---
Pt reports pain of 3 on 0-10 scale with persistent back pain. Pt states that it is tolerable with current interventions.
--- NOTE | 2019-06-30 08:19 | PN_ITS ---
Patient Problems: Active and Suspected Problems (Last Updated 06/24/19 @ 17:54 by Alexi Barker MD) Diverticulitis (Acute) Subjective: Chief complaint: Follow-up after admission for acute sigmoid diverticulitis, E. coli bacteremia and because of persistent leukocytosis, CT scan abdomen and pelvis repeated with IV and oral contrast and revealed acute sigmoid diverticulitis with microperforation. Patient seen and examined. No acute events overnight. Today, she is feeling better even the right lower back pain started to improve after she was kept on n.p.o. She denies anterior abdominal pain. She denied nausea vomiting. Denies fever or chills. Her vital signs are stable. - Physical Exam General: Alert, Oriented x3, Cooperative, No apparent distress HEENT: Atraumatic, PERRLA, EOMI, Normocephalic Oral: Moist Mucosa, No Gingival or Mucosal Lesions/ Ulcerations Neck: Supple, No JVD, Negative Carotid Bruits, Trachea Midline, Thyroid Normal Size and Texture Lungs: Clear to auscultation, Normal air movement, No rhonchi, No wheeze, No rales, Diminished Cardiovascular: Regular rate, Regular Rhythm, Normal S1, Normal S2, PMI Normal Abdomen: Bowel Sounds Present, Soft, Non Tender, Non-Distended, No Hepato- splenomegaly Extremities: No cyanosis, No edema Skin: No rashes, No breakdown Lymphatic: No Cervical, Supraclavicular, or Inguinal Adenopathy Neurological: Cranial nerves II-XII grossly intact, Neuro grossly intact Psych/Mental Status: Normal Affect, Appropriate, Alert and oriented to time, place, person, mood and affect Vital Signs Temp Pulse Resp BP Pulse Ox 99.2 F H 73 16 128/55 H 95 06/30/19 08:12 06/30/19 08:12 06/30/19 08:12 06/30/19 08:12 06/30/19 08:12 Oxygen Flow Rate (L/min) 1.5 Oxygen Delivery Method Room Air Weight: 200 lb 2.876 oz Body Mass Index (BMI) 36.6 Intake and Output for Last 24 Hours 06/28/19 06/29/19 06/30/19 23:59 23:59 23:59 Intake Total 1190.00 / 1190.00 1315.00 / 1315.00 618.33 / 618.33 Output Total 250 / 250 1300 / 1300 Balance 940.00 / 940.00 1315.00 / 1315.00 -681.67 / -681.67 Microbiology Past 72 Hours 06/26/19 12:01 Blood Culture - Preliminary Blood Culture (Wb) - Left Wrist No growth in 48 hours. 06/26/19 11:26 Blood Culture - Preliminary Blood Culture (Wb) - Anticubital Right No growth in 48 hours. Laboratory Tests Past 24 Hrs 06/30/19 06/30/19 07:22 07:22 WBC 16.1 H RBC 3.84 L Hgb 12.9 Hct 37.9 MCV 98.7 MCH 33.6 H MCHC 34.0 RDW Std Deviation 45.0 H RDW Coeff of Lindsey 12.4 Plt Count 343 MPV 10.2 Immature Gran % (Auto) 1.700 H Neut % (Auto) 81.1 H Lymph % (Auto) 10.7 L [place] % (Auto) 5.9 Eos % (Auto) 0.4 Baso % (Auto) 0.2 Absolute Neuts (auto) 13.1 H Absolute Lymphs (auto) 1.73 Nucleated RBC % 0 Sodium Pending Potassium Pending Chloride Pending Carbon Dioxide Pending Anion Gap Pending BUN Pending Creatinine Pending Est GFR (MDRD) Af Amer Pending Est GFR (MDRD) Non-Af Pending BUN/Creatinine Ratio Pending Glucose Pending Calcium Pending Clinical Impression(s) from Imaging Studies. Abdomen/Pelvis CT 06/29/19 10:29 IMPRESSION: 1. Acute sigmoid diverticulitis with microperforation allowing for a few gas bubbles into the adjacent mesentery. No defined extraluminal collection/abscess. 2. Suture ring again seen at the right colon. There is moderate fecal distention in this segment, which may reflect local denervation. No small bowel obstruction. The appendix is not visualized, likely absent. 3. There is edematous or ecchymotic stranding and subcutaneous metastases of the lateral abdominal and pelvic nichols. 4. Stable midline defect of the infraumbilical anterior abdominal wall allowing for a 9 cm fat-containing hernia that projects to the left of midline. 5. Stable mild aortoiliac atherosclerotic calcific plaquing. 6. Stable 1-2 mm nonobstructing stone versus calcific plaque at the lower pole of the right kidney. No hydronephrosis. Electronically Signed: Alexander Amaro MD at 13:55 EDT , Service support , Medical Necessity - Tobacco Use Smoking Status: Never smoker Assessment/Plan All Active Problems (Last Updated 06/24/19 @ 17:54 by Alexi Barker MD) Diverticulitis (Acute) This is a 69 years old male patient presented to the emergency room because of right lower back pain, found to have acute sigmoid diverticulitis complicated by E. coli bacteremia and her pain was attributed to musculoskeletal pain but she is still having significant pain and worsening leukocytosis. #1 acute sigmoid diverticulitis with microperforation: Started on IV meropenem, back on n.p.o., IV fluids and IV antiemetics. CT scan abdomen and pelvis with IV and oral contrast from yesterday reviewed. Oral Flagyl and ciprofloxacin discontinued. She has no abdominal pain, right lower back pain started to improve as well, has been afebrile. Her vital signs are stable. Her white blood cell count is trending down. General surgery on the case. Plan to continue same treatment, repeat CBC tomorrow morning. #2 E. coli bacteremia: Probable source is the acute diverticulitis. She completed 5 days of IV ciprofloxacin and Flagyl and now on IV meropenem. E. coli on the blood culture was sensitive to ertapenem as well. Repeat blood culture showed no growth in 48 hours. Plan as above. #3 mild dehydration/hypokalemia: IV fluids discontinued, creatinine and BUN normalized. Resolved. #4 intractable right lumbar back pain: This is probably due to the microperforation. After patient started back on n.p.o. and bowel rest, this pain started to improve. CT scan abdomen revealed no evidence of osseous lesions or fractures. CT scan lumbar spine done, revealed degenerative changes, no acute findings. Plan as above. #5 CAD status post stents: Stable, continue aspirin, statins, and lisinopril. Plavix held. #6 sick sinus syndrome: Status post pacemaker. Heart rate stable, blood pressure stable. #7 hypertension: Blood pressure stable, continue Lasix, lisinopril. #8 hypothyroidism: Continue levothyroxine. #9 DVT prophylaxis: Subcu Lovenox. This note was generated with [employer] dictation software. It may contain incorrect words, spelling, and punctuation that were not noted in checking the note before signing. Code Visit Inpatient E&M: 81431 Subs Hosp L2
[2019-06-30 08:22] LABS: Anion Gap 7 (5-15); BUN 12 mg/dL (7-18); BUN/Creat Ratio 18.4 RATIO (10-20); Calcium,Total 8.3 mg/dL (8.5-10.1); Chloride 100 mmol/L (98-107); Creatinine, Serum 0.65 mg/dL (0.55-1.02); EST Glomerular Filtration Rate 95 mL/min (>60); Est Glom Filt Rate - Afr Amer 115 mL/min (>60); Estimated Creatinine Clearance 40.81 ml/min; Glucose 129 mg/dL (74-106); Potassium 4.5 mmol/L (3.5-5.1); Sodium Level 135 mmol/L (136-145)
[2019-06-30] MEDS: Enoxaparin 30 MG/0.3 ML Syringe SC (09:28)
[2019-06-30] MEDS: Aspirin E.C. 81 MG Tablet PO (09:28)
[2019-06-30] MEDS: Lisinopril 10 MG Tablet PO (09:29)
[2019-06-30] MEDS: Pantoprazole Sodium 20 MG Tablet PO (09:29)
[2019-06-30] MEDS: Calcium (Elemental) 500 MG Tablet PO (09:29)
[2019-06-30 09:30] VITALS: TEMP 37
--- NOTE | 2019-06-30 09:55 | PN.SURG_ITS ---
Patient Problems: Active and Suspected Problems (Last Updated 06/24/19 @ 17:54 by Alexi Barker MD) Diverticulitis (Acute) Subjective: Patient reports her right back pain is improved. She is still passing flatus with no nausea or vomiting. Does not report any abdominal pain. - Physical Exam General: Alert, Oriented x3 Lungs: Normal air movement Cardiovascular: Regular rate, Regular Rhythm Abdomen: Soft, Non Tender, Non-Distended Vital Signs Temp Pulse Resp BP Pulse Ox 99.2 F H 73 16 128/55 H 95 06/30/19 08:12 06/30/19 08:12 06/30/19 08:12 06/30/19 08:12 06/30/19 08:12 Oxygen Flow Rate (L/min) 1.5 Oxygen Delivery Method Room Air Weight: 200 lb 2.876 oz Body Mass Index (BMI) 36.6 Intake and Output for Last 24 Hours 06/28/19 06/29/19 06/30/19 23:59 23:59 23:59 Intake Total 1190.00 / 1190.00 1315.00 / 1315.00 738.33 / 738.33 Output Total 250 / 250 1300 / 1300 Balance 940.00 / 940.00 1315.00 / 1315.00 -561.67 / -561.67 Microbiology Past 72 Hours 06/26/19 12:01 Blood Culture - Preliminary Blood Culture (Wb) - Left Wrist No growth in 48 hours. 06/26/19 11:26 Blood Culture - Preliminary Blood Culture (Wb) - Anticubital Right No growth in 48 hours. Laboratory Tests Past 24 Hrs 06/30/19 06/30/19 07:22 07:22 WBC 16.1 H RBC 3.84 L Hgb 12.9 Hct 37.9 MCV 98.7 MCH 33.6 H MCHC 34.0 RDW Std Deviation 45.0 H RDW Coeff of [place] 12.4 Plt Count 343 MPV 10.2 Immature Gran % (Auto) 1.700 H Neut % (Auto) 81.1 H Lymph % (Auto) 10.7 L [place] % (Auto) 5.9 Eos % (Auto) 0.4 Baso % (Auto) 0.2 Absolute Neuts (auto) 13.1 H Absolute Lymphs (auto) 1.73 Nucleated RBC % 0 Sodium 135 L Potassium 4.5 Chloride 100 Carbon Dioxide 28.0 Anion Gap 7 BUN 12 Creatinine 0.65 Estim Creat Clear Calc 40.81 Est GFR (MDRD) Af Amer 115 Est GFR (MDRD) Non-Af 95 BUN/Creatinine Ratio 18.4 Glucose 129 H Calcium 8.3 L Medical Necessity - Tobacco Use Smoking Status: Never smoker Assessment/Plan All Active Problems (Last Updated 06/24/19 @ 17:54 by Alexi Barker MD) Diverticulitis (Acute) 69-year-old female with diverticulitis with microperforation 1. Patient has sigmoid diverticulosis which showed microperforation on CT scan yesterday. She is not having any abdominal pain only right lower back pain. She says this is improved. Her white count has improved on the meropenem. I would recommend continued to keep the patient n.p.o. for the next day or [address] colon[address] Dr[address] Johnston will be covering for me starting tomorrow. Pravin Pires MD Pager: [facility] [address] [place] [address], [address] [place] [address] Office:
[2019-06-30] MEDS: 0.9% NaCl Peripheral Flush Adult/Peds IV ×2 (10:32→11:30)
[2019-06-30] MEDS: Morphine 2 MG/ML Syringe 1 MG IV (11:28)
[2019-06-30] MEDS: 0.9% Normal Saline 1,000 ML 100 ML IV (12:54)
--- NOTE | 2019-06-30 13:34 | PCM.PN.ID ---
Patient Problems: Active and Suspected Problems (Last Updated 06/24/19 @ 17:54 by Alexi Barker MD) Diverticulitis (Acute) Subjective: Repeat CT showed microperf. Surgery consulted, abx changed to oleg, feeling better, no fever, less pain - Physical Exam General: Alert, Cooperative, No apparent distress Lungs: Clear to auscultation, Normal air movement Cardiovascular: Regular rate, Regular Rhythm Abdomen: Soft, Non Tender, Non-Distended Skin: No rashes Vital Signs Temp Pulse Resp BP Pulse Ox 98.6 F 73 16 128/55 H 95 06/30/19 09:30 06/30/19 08:12 06/30/19 08:12 06/30/19 08:12 06/30/19 08:12 Oxygen Flow Rate (L/min) 1.5 Oxygen Delivery Method Room Air Weight: 90.8 kg Body Mass Index (BMI) 36.6 Intake and Output for Last 24 Hours 06/28/19 06/29/19 06/30/19 23:59 23:59 23:59 Intake Total 1190.00 / 1190.00 1315.00 / 1315.00 1045.00 / 1045.00 Output Total 250 / 250 1600 / 1600 Balance 940.00 / 940.00 1315.00 / 1315.00 -555.00 / -555.00 Microbiology Past 72 Hours 06/26/19 12:01 Blood Culture - Preliminary Blood Culture (Wb) - Left Wrist No growth in 48 hours. 06/26/19 11:26 Blood Culture - Preliminary Blood Culture (Wb) - Anticubital Right No growth in 48 hours. Laboratory Tests Past 24 Hrs 06/30/19 06/30/19 07:22 07:22 WBC 16.1 H RBC 3.84 L Hgb 12.9 Hct 37.9 MCV 98.7 MCH 33.6 H MCHC 34.0 RDW Std Deviation 45.0 H RDW Coeff of Lindsey 12.4 Plt Count 343 MPV 10.2 Immature Gran % (Auto) 1.700 H Neut % (Auto) 81.1 H Lymph % (Auto) 10.7 L [place] % (Auto) 5.9 Eos % (Auto) 0.4 Baso % (Auto) 0.2 Absolute Neuts (auto) 13.1 H Absolute Lymphs (auto) 1.73 Nucleated RBC % 0 Sodium 135 L Potassium 4.5 Chloride 100 Carbon Dioxide 28.0 Anion Gap 7 BUN 12 Creatinine 0.65 Estim Creat Clear Calc 40.81 Est GFR (MDRD) Af Amer 115 Est GFR (MDRD) Non-Af 95 BUN/Creatinine Ratio 18.4 Glucose 129 H Calcium 8.3 L Medical Necessity - Tobacco Use Smoking Status: Never smoker Route of nutrition/ use of supplements: [] Nutritional Intake: [] IV Site: [] Rainey Catheter: [] - Assessment/Plan Antibiotics: [] Assessment/Plan: [] ecoli bacteremia due to diverticulitis - Repeat CT showed micro perf. Wbc and pain improved on meropenem, started 06/29, surgery following Will follow, d/w Dr. Barker
[2019-06-30 14:18] VITALS: BP 135/63; PULSE 70; RESP 16; TEMP 36.8; O2SAT 95
[2019-06-30] MEDS: Acetaminophen 325 MG Tablet 650 MG PO (15:53)
[2019-06-30 20:15] VITALS: BP 148/74; PULSE 69; RESP 18; TEMP 36.8; O2SAT 97
[2019-06-30] MEDS: Gabapentin 100 MG Capsule 200 MG PO (21:22)
[2019-06-30] MEDS: Atorvastatin Calcium 20 MG Tablet PO (21:22)
[2019-06-30] MEDS: Furosemide 40 MG Tablet PO (21:22)
[2019-07-01 02:15] VITALS: BP 165/78; PULSE 72; RESP 18; TEMP 37.4; O2SAT 95
[2019-07-01] MEDS: Gabapentin 100 MG Capsule PO ×2 (05:41→15:17)
[2019-07-01] MEDS: Levothyroxine 100 MCG Tablet PO (05:41)
[2019-07-01] MEDS: 0.9% Normal Saline 1,000 ML 100 ML IV ×2 (05:56→20:06)
--- NOTE | 2019-07-01 08:41 | PCM.PROGNOTE ---
Patient Problems: Active and Suspected Problems (Last Updated 06/24/19 @ 17:54 by Alexi Barker MD) Diverticulitis (Acute) Subjective: Chief complaint: Follow-up after admission for acute sigmoid diverticulitis, E. coli bacteremia and because of persistent leukocytosis, CT scan abdomen and pelvis repeated with IV and oral contrast and revealed acute sigmoid diverticulitis with microperforation. Patient seen and examined. No acute events overnight. She denies any abdominal pain, nausea or vomiting. She has been afebrile. Right lower back pain is improving, still there upon ambulation. Blood pressure slightly elevated, other vital signs are stable. - Physical Exam General: Alert, Oriented x3, Cooperative, No apparent distress HEENT: Atraumatic, PERRLA, EOMI, Normocephalic Oral: Moist Mucosa, No Gingival or Mucosal Lesions/ Ulcerations Neck: Supple, No JVD, Negative Carotid Bruits, Trachea Midline, Thyroid Normal Size and Texture Lungs: Clear to auscultation, Normal air movement, No rhonchi, No wheeze, No rales, Diminished Cardiovascular: Regular rate, Regular Rhythm, Normal S1, Normal S2, PMI Normal Abdomen: Bowel Sounds Present, Soft, Non Tender, Non-Distended, No Hepato-splenomegaly Extremities: No clubbing, No cyanosis, No edema Skin: No rashes, No breakdown Lymphatic: No Cervical, Supraclavicular, or Inguinal Adenopathy Neurological: Cranial nerves II-XII grossly intact, Neuro grossly intact Psych/Mental Status: Normal Affect, Appropriate, Alert and oriented to time, place, person, mood and affect Vital Signs Temp Pulse Resp BP Pulse Ox 99.3 F H 72 18 165/78 H 95 07/01/19 02:15 07/01/19 02:15 07/01/19 02:15 07/01/19 02:15 07/01/19 02:15 Oxygen Flow Rate (L/min) 1.5 Oxygen Delivery Method Room Air Weight: 200 lb 2.876 oz Body Mass Index (BMI) 36.6 Intake and Output for Last 24 Hours 06/29/19 06/30/19 07/01/19 23:59 23:59 23:59 Intake Total 1315.00 / 1315.00 1678.33 / 1678.33 3161 / 3161 Output Total 1950 / 1950 2900 / 2900 Balance 1315.00 / 1315.00 -271.67 / -271.67 261 / 261 Microbiology Past 72 Hours 06/26/19 12:01 Blood Culture - Preliminary Blood Culture (Wb) - Left Wrist No growth in 48 hours. 06/26/19 11:26 Blood Culture - Preliminary Blood Culture (Wb) - Anticubital Right No growth in 48 hours. Medical Necessity - Tobacco Use Smoking Status: Never smoker Assessment/Plan All Active Problems (Last Updated 06/24/19 @ 17:54 by Alexi Barker MD) Diverticulitis (Acute) This is a 69 years old male patient presented to the emergency room because of right lower back pain, found to have acute sigmoid diverticulitis complicated by E. coli bacteremia and her pain was attributed to musculoskeletal pain but she is still having significant pain and worsening leukocytosis. #1 acute sigmoid diverticulitis with microperforation: She is on IV meropenem, remained on n.p.o., IV fluids and IV antiemetics. CT scan abdomen and pelvis with IV and oral contrast from yesterday reviewed. She remains asymptomatic, right lower back pain is improving. She has been afebrile, vital signs are stable. General surgery on the case. Plan: Continue same treatment, keep on n.p.o., repeat CBC tomorrow morning. #2 E. coli bacteremia: Probable source is the acute diverticulitis. She completed 5 days of IV ciprofloxacin and Flagyl and now on IV meropenem. E. coli on the blood culture was sensitive to ertapenem as well. Repeat blood culture showed no growth in 48 hours. Plan as above. #3 mild dehydration/hypokalemia: IV fluids discontinued, creatinine and BUN normalized. Resolved. #4 intractable right lumbar back pain: This is probably due to the microperforation. After patient started back on n.p.o. and bowel rest, this pain started to improve. CT scan abdomen revealed no evidence of osseous lesions or fractures. CT scan lumbar spine done, revealed degenerative changes, no acute findings. Plan as above. #5 CAD status post stents: Stable, continue aspirin, statins, and lisinopril. Plavix held. #6 sick sinus syndrome: Status post pacemaker. Heart rate stable, blood pressure stable. #7 hypertension: Blood pressure stable, continue Lasix, lisinopril. #8 hypothyroidism: Continue levothyroxine. #9 DVT prophylaxis: Subcu Lovenox. This note was generated with [employer] dictation software. It may contain incorrect words, spelling, and punctuation that were not noted in checking the note before signing. Code Visit Inpatient E&M: 71240 Subs Hosp L2
[2019-07-01 09:14] VITALS: BP 124/54; PULSE 70; RESP 18; TEMP 37.4; O2SAT 99
[2019-07-01] MEDS: Calcium (Elemental) 500 MG Tablet PO (09:21)
[2019-07-01] MEDS: Enoxaparin 30 MG/0.3 ML Syringe SC (09:21)
[2019-07-01] MEDS: Aspirin E.C. 81 MG Tablet PO (09:21)
[2019-07-01] MEDS: Lisinopril 10 MG Tablet PO (09:22)
[2019-07-01] MEDS: Pantoprazole Sodium 20 MG Tablet PO (09:22)
[2019-07-01] MEDS: Morphine 2 MG/ML Syringe 1 MG IV ×3 (10:19→20:06)
[2019-07-01] MEDS: 0.9% NaCl Peripheral Flush Adult/Peds IV ×3 (10:19→20:06)
--- NOTE | 2019-07-01 10:53 | PCM.PN.SRG ---
Patient Problems: Active and Suspected Problems (Last Updated 06/24/19 @ 17:54 by Alexi Barker MD) Diverticulitis (Acute) Subjective: Patient not really complaining of any abdominal pain at this point. No bowel movements as of yet. Objective: Her abdomen is soft she does have some slight guarding but no rebound guarding or peritoneal signs are identified. - Physical Exam Vital Signs Temp Pulse Resp BP Pulse Ox 99.4 F H 70 18 124/54 H 99 07/01/19 09:14 07/01/19 09:14 07/01/19 09:14 07/01/19 09:14 07/01/19 09:14 Oxygen Flow Rate (L/min) 1.5 Oxygen Delivery Method Room Air Weight: 200 lb 2.876 oz Body Mass Index (BMI) 36.6 Intake and Output for Last 24 Hours 06/29/19 06/30/19 07/01/19 23:59 23:59 23:59 Intake Total 1315.00 / 1315.00 1678.33 / 1678.33 3281 / 3281 Output Total 1950 / 1950 2900 / 2900 Balance 1315.00 / 1315.00 -271.67 / -271.67 381 / 381 Microbiology Past 72 Hours 06/26/19 12:01 Blood Culture - Preliminary Blood Culture (Wb) - Left Wrist No growth in 48 hours. 06/26/19 11:26 Blood Culture - Preliminary Blood Culture (Wb) - Anticubital Right No growth in 48 hours. Medical Necessity - Tobacco Use Smoking Status: Never smoker Assessment/Plan All Active Problems (Last Updated 06/24/19 @ 17:54 by Alexi Barker MD) Diverticulitis (Acute) Okay for some sips of ice water and clear liquids. No solid foods
[2019-07-01 15:00] VITALS: BP 137/66; PULSE 71; RESP 18; TEMP 37.4; O2SAT 94
[2019-07-01] MEDS: oxyCODONE 5 MG Tablet PO ×2 (17:39→21:45)
[2019-07-01 20:10] VITALS: BP 132/52; PULSE 70; RESP 16; TEMP 37.8; O2SAT 94
[2019-07-01] MEDS: Gabapentin 100 MG Capsule 200 MG PO (21:45)
[2019-07-01] MEDS: Furosemide 40 MG Tablet PO (21:45)
[2019-07-01] MEDS: Atorvastatin Calcium 20 MG Tablet PO (21:46)
[2019-07-02] MEDS: oxyCODONE 5 MG Tablet PO ×3 (01:45→18:34)
[2019-07-02 01:49] VITALS: BP 115/43; PULSE 70; RESP 16; TEMP 37.4; O2SAT 95
[2019-07-02 05:55] LABS: Absolute Neutrophil Count 12.3 X10^3/uL (2.0-7.7); Basophil# 0.05 X10^3/uL; Basophil% 0.3 % (0-1); Eosinophil# 0.05 X10^3/uL; Eosinophils% 0.3 % (0-5); Hematocrit 36.9 % (37-47); Hemoglobin 12.5 g/dL (12.0-15.0); Mean Corp Hgb Conc 33.9 g/dL (32-36); Mean Corpuscular Hgb 33.6 pg (27.0-32.0); Mean Corpuscular Volume 99.2 fL (81-99); Monocyte# 0.91 X10^3/uL; Monocyte% 5.9 % (0-10); NRBC Flagged by Analyzer 0 % (0-5); Neutrophil # 12.28 X10^3/uL (2.7-7.7); Neutrophil % 79.8 % (47-70); Platelet Count 411 K/mm3 (150-450); RBC Distribution Width CV 12.3 % (11.6-14.6); RBC Distribution Width SD 45.1 fl (35.1-43.9); Red Blood Count 3.72 M/mm3 (4.2-5.4); White Blood Count 15.4 K/mm3 (4.4-11.0)
[2019-07-02] MEDS: Levothyroxine 100 MCG Tablet PO (06:33)
[2019-07-02] MEDS: Gabapentin 100 MG Capsule PO ×2 (06:33→13:39)
[2019-07-02 07:50] VITALS: BP 109/51; PULSE 70; RESP 18; TEMP 37.3; O2SAT 94
[2019-07-02] MEDS: Pantoprazole Sodium 20 MG Tablet PO (09:10)
[2019-07-02] MEDS: Aspirin E.C. 81 MG Tablet PO (09:11)
[2019-07-02] MEDS: Enoxaparin 30 MG/0.3 ML Syringe SC (09:11)
[2019-07-02] MEDS: Lisinopril 10 MG Tablet PO (09:11)
[2019-07-02] MEDS: Calcium (Elemental) 500 MG Tablet PO (09:11)
--- NOTE | 2019-07-02 10:24 | PCM.PN.SRG ---
Patient Problems: Active and Suspected Problems (Last Updated 06/24/19 @ 17:54 by Alexi Barker MD) Diverticulitis (Acute) Subjective: Patient states that her back pain has improved. She is not complaining of any lower abdominal pain. She has passed a little bit of flatus but she cannot call having a bowel movement as of yet. She is not complaining of any fever or chills Objective: Abdomen is obese and soft there is no rebound guarding or peritoneal signs. - Physical Exam Vital Signs Temp Pulse Resp BP Pulse Ox 99.1 F 70 18 109/51 L 94 07/02/19 07:50 07/02/19 07:50 07/02/19 07:50 07/02/19 07:50 07/02/19 07:50 Oxygen Flow Rate (L/min) 1.5 Oxygen Delivery Method Room Air Weight: 200 lb 2.876 oz Body Mass Index (BMI) 36.6 Intake and Output for Last 24 Hours 06/30/19 07/01/19 07/02/19 23:59 23:59 23:59 Intake Total 1678.33 / 1678.33 4786.00 / 4786.00 683.33 / 683.33 Output Total 1950 / 1950 3450 / 3450 700 / 700 Balance -271.67 / -271.67 1336.00 / 1336.00 -16.67 / -16.67 Microbiology Past 72 Hours 06/26/19 12:01 Blood Culture - Final Blood Culture (Wb) - Left Wrist No growth in 5 days. 06/26/19 11:26 Blood Culture - Final Blood Culture (Wb) - Anticubital Right No growth in 5 days. Laboratory Tests Past 24 Hrs 07/02/19 05:27 WBC 15.4 H RBC 3.72 L Hgb 12.5 Hct 36.9 L MCV 99.2 H MCH 33.6 H MCHC 33.9 RDW Std Deviation 45.1 H RDW Coeff of Lindsey 12.3 Plt Count 411 MPV 10.0 Immature Gran % (Auto) 0.700 Neut % (Auto) 79.8 H Lymph % (Auto) 13.0 L [place] % (Auto) 5.9 Eos % (Auto) 0.3 Baso % (Auto) 0.3 Absolute Neuts (auto) 12.3 H Absolute Lymphs (auto) 2.00 Nucleated RBC % 0 Medical Necessity - Tobacco Use Smoking Status: Never smoker Assessment/Plan All Active Problems (Last Updated 06/24/19 @ 17:54 by Alexi Barker MD) Diverticulitis (Acute) White count is drifting down. It is still not within the normal range. She is tolerating sips and chips and clear liquids but I would not advance her any further at this time. Continue IV antibiotics.
--- NOTE | 2019-07-02 11:38 | PCM.PROGNOTE ---
Patient Problems: Active and Suspected Problems (Last Updated 06/24/19 @ 17:54 by Alexi Barker MD) Diverticulitis (Acute) Subjective: Chief complaint: Follow-up after admission for acute sigmoid diverticulitis with microperforation, E. coli bacteremia. Patient seen and examined. No acute events overnight. She stated that her right lower back pain continued to improve. She denies any abdominal pain. Denies nausea or vomiting. She denies fever or chills. She had one spike of low-grade fever last night, other vital signs are stable. - Physical Exam General: Alert, Oriented x3, Cooperative, No apparent distress HEENT: Atraumatic, PERRLA, EOMI, Normocephalic Oral: Moist Mucosa, No Gingival or Mucosal Lesions/ Ulcerations Neck: Supple, No JVD, Negative Carotid Bruits, Trachea Midline, Thyroid Normal Size and Texture Lungs: Clear to auscultation, Normal air movement, No rhonchi, No wheeze, No rales, Diminished Cardiovascular: Regular rate, Regular Rhythm, Normal S1, Normal S2, PMI Normal Abdomen: Bowel Sounds Present, Soft, Non Tender, Non-Distended, No Hepato-splenomegaly Extremities: No clubbing, No cyanosis, No edema Skin: No rashes, No breakdown Lymphatic: No Cervical, Supraclavicular, or Inguinal Adenopathy Neurological: Cranial nerves II-XII grossly intact, Neuro grossly intact Psych/Mental Status: Normal Affect, Appropriate, Alert and oriented to time, place, person, mood and affect Vital Signs Temp Pulse Resp BP Pulse Ox 99.1 F 70 18 109/51 L 94 07/02/19 07:50 07/02/19 07:50 07/02/19 07:50 07/02/19 07:50 07/02/19 07:50 Oxygen Flow Rate (L/min) 1.5 Oxygen Delivery Method Room Air Weight: 200 lb 2.876 oz Body Mass Index (BMI) 36.6 Intake and Output for Last 24 Hours 06/30/19 07/01/19 07/02/19 23:59 23:59 23:59 Intake Total 1678.33 / 1678.33 4786.00 / 4786.00 683.33 / 683.33 Output Total 1950 / 1950 3450 / 3450 700 / 700 Balance -271.67 / -271.67 1336.00 / 1336.00 -16.67 / -16.67 Microbiology Past 72 Hours 06/26/19 12:01 Blood Culture - Final Blood Culture (Wb) - Left Wrist No growth in 5 days. 06/26/19 11:26 Blood Culture - Final Blood Culture (Wb) - Anticubital Right No growth in 5 days. Laboratory Tests Past 24 Hrs 07/02/19 05:27 WBC 15.4 H RBC 3.72 L Hgb 12.5 Hct 36.9 L MCV 99.2 H MCH 33.6 H MCHC 33.9 RDW Std Deviation 45.1 H RDW Coeff of [place] 12.3 Plt Count 411 MPV 10.0 Immature Gran % (Auto) 0.700 Neut % (Auto) 79.8 H Lymph % (Auto) 13.0 L [place] % (Auto) 5.9 Eos % (Auto) 0.3 Baso % (Auto) 0.3 Absolute Neuts (auto) 12.3 H Absolute Lymphs (auto) 2.00 Nucleated RBC % 0 Medical Necessity - Tobacco Use Smoking Status: Never smoker Assessment/Plan All Active Problems (Last Updated 06/24/19 @ 17:54 by Alexi Barker MD) Diverticulitis (Acute) This is a 69 years old male patient presented to the emergency room because of right lower back pain, found to have acute sigmoid diverticulitis complicated by E. coli bacteremia and her pain was attributed to musculoskeletal pain but she is still having significant pain and worsening leukocytosis. #1 acute sigmoid diverticulitis with microperforation: Remained on IV meropenem, remained on n.p.o. with sips of water, IV fluids and IV antiemetics. She has spike of low-grade fever last night, other vital signs are stable. Right lower back pain continued to improve, denies any abdominal pain. General surgery on the case and recommended to keep on n.p.o. with sips of water today. Plan: Continue same treatment, CBC tomorrow morning, anticipate discharge home in the next day or 2.. #2 E. coli bacteremia: Probable source is the acute diverticulitis. She completed 5 days of IV ciprofloxacin and Flagyl and now on day 3 of IV meropenem. E. coli on the blood culture was sensitive to ertapenem as well. Repeat blood culture showed no growth in 48 hours. Plan as above. #3 mild dehydration/hypokalemia: IV fluids discontinued, creatinine and BUN normalized. Resolved. #4 intractable right lumbar back pain: This is probably due to the microperforation. Right lower back pain continued to improve. #5 CAD status post stents: Stable, continue aspirin, statins, and lisinopril. Plavix held. #6 sick sinus syndrome: Status post pacemaker. Heart rate stable, blood pressure stable. #7 hypertension: Blood pressure stable, continue Lasix, lisinopril. #8 hypothyroidism: Continue levothyroxine. #9 DVT prophylaxis: Subcu Lovenox. This note was generated with [employer] dictation software. It may contain incorrect words, spelling, and punctuation that were not noted in checking the note before signing. Code Visit Inpatient E&M: 19851 Subs Hosp L2
[2019-07-02 15:54] VITALS: BP 118/46; PULSE 70; RESP 18; TEMP 37.1; O2SAT 94
[2019-07-02] MEDS: 0.9% Normal Saline 1,000 ML 100 ML IV (17:11)
[2019-07-02] MEDS: Morphine 2 MG/ML Syringe 1 MG IV (17:14)
[2019-07-02] MEDS: 0.9% NaCl Peripheral Flush Adult/Peds IV (17:14)
[2019-07-02 21:48] VITALS: BP 105/48; PULSE 69; RESP 18; TEMP 37.9; O2SAT 92
[2019-07-02] MEDS: Atorvastatin Calcium 20 MG Tablet PO (22:01)
[2019-07-02] MEDS: Gabapentin 100 MG Capsule 200 MG PO (22:02)
[2019-07-03 02:45] VITALS: BP 125/53; PULSE 72; RESP 16; TEMP 37.5; O2SAT 93
[2019-07-03] MEDS: Gabapentin 100 MG Capsule PO ×2 (05:15→14:35)
[2019-07-03] MEDS: Levothyroxine 100 MCG Tablet PO (05:15)
[2019-07-03 05:24] LABS: Absolute Lymphocyte Count 2.06 X10^3/uL (0.83-4.51); Absolute Neutrophil Count 9.2 X10^3/uL (2.0-7.7); Basophil# 0.06 X10^3/uL; Basophil% 0.5 % (0-1); Eosinophil# 0.09 X10^3/uL; Eosinophils% 0.7 % (0-5); Hematocrit 34.7 % (37-47); Hemoglobin 11.6 g/dL (12.0-15.0); Lymphocyte # 2.06 X10^3/ul (4.0); Lymphocyte % 16.6 % (19-41); Mean Corp Hgb Conc 33.4 g/dL (32-36); Mean Corpuscular Hgb 33.1 pg (27.0-32.0); Mean Corpuscular Volume 99.1 fL (81-99); Mean Platelet Vol. 9.9 fl (6.2-12.0); Monocyte# 0.98 X10^3/uL; Monocyte% 7.9 % (0-10); NRBC Flagged by Analyzer 0 % (0-5); Neutrophil # 9.18 X10^3/uL (2.7-7.7); Neutrophil % 73.7 % (47-70); Platelet Count 389 K/mm3 (150-450); RBC Distribution Width CV 12.3 % (11.6-14.6); RBC Distribution Width SD 44.7 fl (35.1-43.9); White Blood Count 12.4 K/mm3 (4.4-11.0)
[2019-07-03 07:38] VITALS: BP 124/53; PULSE 73; RESP 14; TEMP 37.2; O2SAT 93
[2019-07-03] MEDS: Acetaminophen 325 MG Tablet 650 MG PO (08:37)
[2019-07-03] MEDS: Calcium (Elemental) 500 MG Tablet PO (08:38)
[2019-07-03] MEDS: Lisinopril 10 MG Tablet PO (08:38)
[2019-07-03] MEDS: Aspirin E.C. 81 MG Tablet PO (08:38)
[2019-07-03] MEDS: Pantoprazole Sodium 20 MG Tablet PO (08:38)
[2019-07-03] MEDS: 0.9% Normal Saline 1,000 ML 100 ML IV (08:48)
--- NOTE | 2019-07-03 08:48 | NURSING ---
IV merrem was completed earlier than was scheduled. made this RN state that some of med was wasted-- was not.
[2019-07-03 09:00] VITALS: PULSE 73; RESP 14; O2SAT 93
--- NOTE | 2019-07-03 09:53 | PN_ITS ---
Patient Problems: Active and Suspected Problems (Last Updated 06/24/19 @ 17:54 by Alexi Barker MD) Diverticulitis (Acute) Subjective: Patient seen and examined. She denies any abdominal pain but does complain of pain in her left foot which is not new and is due to arthritis. She denies any fever or chills, any nausea vomiting or diarrhea. Review of systems otherwise negative. She still on IV meropenem for acute sigmoid diverticulitis with microperforation and E. coli bacteremia. Labs and vitals reviewed. WBC has t rended down to 12.4 from 15.4. She had a mild temperature spike to 100.2 Fahrenheit overnight. Vitals/I&O's: Vital Signs Temp Pulse Resp BP Pulse Ox 98.9 F 73 14 124/53 H 93 07/03/19 07:38 07/03/19 07:38 07/03/19 07:38 07/03/19 07:38 07/03/19 07:38 Oxygen Flow Rate (L/min) 1.5 Oxygen Delivery Method Room Air Weight: 200 lb 2.876 oz Body Mass Index (BMI) 36.6 Intake and Output for Last 24 Hours 07/01/19 07/02/19 07/03/19 23:59 23:59 23:59 Intake Total 4786.00 / 4786.00 3181.00 / 3581.00 1079.4 / 1079.4 Output Total 3450 / 3450 1550 / 1550 Balance 1336.00 / 1336.00 1631.00 / 2031.00 1079.4 / 1079.4 General: Alert, Oriented x3, Cooperative, No apparent distress HEENT: Atraumatic, PERRLA, EOMI, Normocephalic Oral: Dry Mucosa Neck: Supple Lungs: Clear to auscultation, Normal air movement, No rhonchi, No wheeze, No rales Cardiovascular: Regular rate, Regular Rhythm, Normal S1, Normal S2, No murmurs Abdomen: Bowel Sounds Present, Soft, Non Tender, Non-Distended, No Hepato- splenomegaly Extremities: No clubbing, No cyanosis, No edema, Capillary Refill Less than 3 Seconds Skin: No rashes, No breakdown Musculoskeletal: No Tenderness to Palpation of Joints or Extremities Lymphatic: No Cervical, Supraclavicular, or Inguinal Adenopathy Neurological: Cranial nerves II-XII grossly intact, Neuro grossly intact, Motor Exam 5/5 strength throughout Psych/Mental Status: Normal Affect, Appropriate, Alert and oriented to time, place, person, mood and affect Microbiology Past 72 Hours 06/26/19 12:01 Blood Culture (Wb) - Left Wrist Blood Culture - Final No growth in 5 days. 06/26/19 11:26 Blood Culture (Wb) - Anticubital Right Blood Culture - Final No growth in 5 days. Laboratory Results 07/03/19 05:12: WBC 12.4 H, RBC 3.50 L, Hgb 11.6 L, Hct 34.7 L, MCV 99.1 H, MCH 33.1 H, MCHC 33.4, RDW Std Deviation 44.7 H, RDW Coeff of Lindsey 12.3, Plt Count 389, MPV 9.9, Immature Gran % (Auto) 0.600, Neut % (Auto) 73.7 H, Lymph % (Auto) 16.6 L, [place] % (Auto) 7.9, Eos % (Auto) 0.7, Baso % (Auto) 0.5, Absolute Neuts (auto) 9.2 H, Absolute Lymphs (auto) 2.06, Nucleated RBC % 0 Diagnostic Data Chest X-Ray 06/24/19 11:46 IMPRESSION: No acute thoracic pathology. Electronically Signed: Parviz Deluca, at 13:30 EDT Tel , Service support , Hip/Pelvis X-Ray 06/25/19 08:38 IMPRESSION: 1. No acute fracture. at 2312 Reported and signed by: Fred Carr MD Electronically Signed: Fred Carr MD at 23:10 EDT Tel , Service support , Knee X-Ray 06/25/19 08:41 IMPRESSION: Osteopenia with medial compartmental arthrosis. No acute finding. Electronically Signed: Ismael Merino MD at 14:09 EDT , Service support , Lumbar Spine CT 06/26/19 11:27 IMPRESSION: Multilevel degenerative changes, as described above. Electronically Signed: Alexander Amaro MD at 16:56 EDT , Service support , Abdomen Ultrasound 06/28/19 12:45 IMPRESSION: Negative RUQ ultrasound. Electronically Signed: Dinesh Ch, at 21:20 EDT Tel , Service support , Abdomen/Pelvis CT 06/29/19 10:29 IMPRESSION: 1. Acute sigmoid diverticulitis with microperforation allowing for a few gas bubbles into the adjacent mesentery. No defined extraluminal collection/abscess. 2. Suture ring again seen at the right colon. There is moderate fecal distention in this segment, which may reflect local denervation. No small bowel obstruction. The appendix is not visualized, likely absent. 3. There is edematous or ecchymotic stranding and subcutaneous metastases of the lateral abdominal and pelvic nichols. 4. Stable midline defect of the infraumbilical anterior abdominal wall allowing for a 9 cm fat-containing hernia that projects to the left of midline. 5. Stable mild aortoiliac atherosclerotic calcific plaquing. 6. Stable 1-2 mm nonobstructing stone versus calcific plaque at the lower pole of the right kidney. No hydronephrosis. Electronically Signed: Alexander Amaro MD at 13:55 EDT , Service support , Current Medications Acetaminophen (Tylenol) 650 mg PO Q6H PRN PRN PRN Reason: Mild Pain (1-3)/Temp > 100.7 F Last Admin: 07/03/19 08:37 Dose: 650 mg Documented by: Aspirin (Ecotrin) 81 mg PO DAILY [facility] Last Admin: 07/03/19 08:38 Dose: 81 mg Documented by: Atorvastatin Calcium (Lipitor) 20 mg PO QHS [facility] Last Admin: 07/02/19 22:01 Dose: 20 mg Documented by: Calcium Carbonate (Os-Harjeet 500) 500 mg PO DAILY [facility] Last Admin: 07/03/19 08:38 Dose: 500 mg Documented by: Enoxaparin Sodium (Lovenox) 30 mg SC DAILY [facility] Last Admin: 07/02/19 09:11 Dose: 30 mg Documented by: Furosemide (Lasix) 40 mg PO QHS [facility] Last Admin: 07/02/19 22:01 Dose: Not Given Documented by: Gabapentin (Neurontin) 100 mg PO 0600,1400 [facility] Last Admin: 07/03/19 05:15 Dose: 100 mg Documented by: Gabapentin (Neurontin) 200 mg PO QHS [facility] Last Admin: 07/02/19 22:02 Dose: 200 mg Documented by: Sodium Chloride () 250 mls @ 15 mls/hr IV .[id number] PRN PRN Reason: SALINE FLUSH Last Infusion: 06/28/19 11:59 Dose: Infused Documented by: Sodium Chloride () 1,000 mls @ 100 mls/hr IV .Q10H [facility] Last Admin: 07/03/19 08:48 Dose: 100 mls/hr Documented by: Meropenem 1 gm/ Sodium (Chloride) 120 mls @ 33 mls/hr IV Q8 [facility] Last Infusion: 07/03/19 08:43 Dose: Infused Documented by: Levothyroxine Sodium (Synthroid) 100 mcg PO DAILY@0600 [facility] Last Admin: 07/03/19 05:15 Dose: 100 mcg Documented by: Lisinopril (Zestril) 10 mg PO DAILY [facility] Last Admin: 07/03/19 08:38 Dose: 10 mg Documented by: Morphine Sulfate () 1 mg IV Q4H PRN PRN PRN Reason: SEVERE PAIN (6-10/10) Last Admin: 07/02/19 17:14 Dose: 1 mg Documented by: Ondansetron HCl (Zofran) 4 mg IV Q8H PRN PRN PRN Reason: NAUSEA/VOMITING Last Admin: 06/25/19 02:26 Dose: 4 mg Documented by: Oxycodone HCl (Oxyir) 5 mg PO Q4H PRN PRN PRN Reason: SEVERE PAIN (6-10/10) Last Admin: 07/02/19 18:34 Dose: 5 mg Documented by: Pantoprazole Sodium (Protonix) 20 mg PO DAILY [facility] Last Admin: 07/03/19 08:38 Dose: 20 mg Documented by: Potassium Chloride (K-Dur) 40 meq PO BIDCM [facility] Last Admin: 07/03/19 08:37 Dose: 40 meq Documented by: Sodium Chloride () 10 - 40 ml IV UD PRN PRN Reason: SALINE FLUSH Last Admin: 07/02/19 17:14 Dose: 10 ml Documented by: Medical Necessity - Tobacco Use Smoking Status: Never smoker Assessment/Plan All Active Problems (Last Updated 06/24/19 @ 17:54 by Alexi Barker MD) Diverticulitis (Acute) 1. Acute sigmoid diverticulitis with microperforation * has no complaints this morning * on full liquid diet now, and tolerating it well * on IV meropenem' wbc down to 12./4 from ~ 15 yesterday * general surgery and ID on board * 2. E. coli bacteremia due to acute diverticulitis * Completed 5 days of IV ciprofloxacin and Flagyl and is not on IV meropenem. Today's day 4. * Repeat blood cultures showed no growth after 5 days. * ID on board. Continue antibiotics as white cell count has normalized fully. * 3. Hypokalemia: Resolved. 4. Intractable lumbar back pain. Has improved and feels much better today. 5. Arthritis of the left foot: Complains of some pain in her left foot which she states is chronic and she is been told is due to arthritis. Will monitor. Tylenol as needed for pain. 6. CAD status post stents: Aspirin, statins and lisinopril. Plavix was held on admission on account of the diverticulitis with perforation. 7. Sick sinus syndrome: Status post pacemaker. Stable. 8. Hypertension: Stable. On lisinopril and Lasix. 9. Hypothyroidism: On Synthroid. DVT prophylaxis: Lovenox Code Visit Inpatient E&M: 96828 Subs Hosp L2
[2019-07-03] MEDS: Enoxaparin 30 MG/0.3 ML Syringe SC (10:25)
--- NOTE | 2019-07-03 10:59 | PN.SURG_ITS ---
Patient Problems: Active and Suspected Problems (Last Updated 06/24/19 @ 17:54 by Alexi Barker MD) Diverticulitis (Acute) Subjective: Patient was evaluated in her room. She notes occasional right back pain otherwise she denies abdominal pain, nausea, vomiting. She is passing flatus and having BM's. Tolerating full liquids. - Physical Exam General: Alert, Oriented x3, Cooperative Abdomen: Soft, Non Tender, Non-Distended Vital Signs Temp Pulse Resp BP Pulse Ox 98.9 F 73 14 124/53 H 93 07/03/19 07:38 07/03/19 07:38 07/03/19 07:38 07/03/19 07:38 07/03/19 07:38 Oxygen Flow Rate (L/min) 1.5 Oxygen Delivery Method Room Air Weight: 200 lb 2.876 oz Body Mass Index (BMI) 36.6 Intake and Output for Last 24 Hours 07/01/19 07/02/19 07/03/19 23:59 23:59 23:59 Intake Total 4786.00 / 4786.00 3181.00 / 3581.00 1079.4 / 1079.4 Output Total 3450 / 3450 1550 / 1550 Balance 1336.00 / 1336.00 1631.00 / 2031.00 1079.4 / 1079.4 Microbiology Past 72 Hours 06/26/19 12:01 Blood Culture - Final Blood Culture (Wb) - Left Wrist No growth in 5 days. 06/26/19 11:26 Blood Culture - Final Blood Culture (Wb) - Anticubital Right No growth in 5 days. Laboratory Tests Past 24 Hrs 07/03/19 05:12 WBC 12.4 H RBC 3.50 L Hgb 11.6 L Hct 34.7 L MCV 99.1 H MCH 33.1 H MCHC 33.4 RDW Std Deviation 44.7 H RDW Coeff of [place] 12.3 Plt Count 389 MPV 9.9 Immature Gran % (Auto) 0.600 Neut % (Auto) 73.7 H Lymph % (Auto) 16.6 L [place] % (Auto) 7.9 Eos % (Auto) 0.7 Baso % (Auto) 0.5 Absolute Neuts (auto) 9.2 H Absolute Lymphs (auto) 2.06 Nucleated RBC % 0 Medical Necessity - Tobacco Use Smoking Status: Never smoker Assessment/Plan All Active Problems (Last Updated 06/24/19 @ 17:54 by Alexi Barker MD) Diverticulitis (Acute) I am following this patient in conjunction with Dr. Johnston. Acute diverticulitis Continue IV antibiotics Labs reviewed Increase diet Hopeful discharge tomorrow Code Visit Inpatient E&M: 66635 Subs Hosp L1
[2019-07-03 13:18] VITALS: BP 120/52; PULSE 69; RESP 16; TEMP 36.4; O2SAT 100
--- NOTE | 2019-07-03 13:49 | PCM.PN.ID ---
Patient Problems: Active and Suspected Problems (Last Updated 06/24/19 @ 17:54 by Alexi Barker MD) Diverticulitis (Acute) Subjective: Feeling better, pain improved, no fever - Physical Exam General: Alert, Cooperative, No apparent distress Lungs: Clear to auscultation, Normal air movement Cardiovascular: Regular rate, Regular Rhythm Abdomen: Soft, Non Tender, Non-Distended Skin: No rashes Vital Signs Temp Pulse Resp BP Pulse Ox 97.6 F L 69 16 120/52 L 100 07/03/19 13:18 07/03/19 13:18 07/03/19 13:18 07/03/19 13:18 07/03/19 13:18 Oxygen Flow Rate (L/min) 1.5 Oxygen Delivery Method Room Air Weight: 90.8 kg Body Mass Index (BMI) 36.6 Intake and Output for Last 24 Hours 07/01/19 07/02/19 07/03/19 23:59 23:59 23:59 Intake Total 4786.00 / 4786.00 3181.00 / 3581.00 1629.4 / 1629.4 Output Total 3450 / 3450 1550 / 1550 Balance 1336.00 / 1336.00 1631.00 / 2031.00 1629.4 / 1629.4 Microbiology Past 72 Hours 06/26/19 12:01 Blood Culture - Final Blood Culture (Wb) - Left Wrist No growth in 5 days. 06/26/19 11:26 Blood Culture - Final Blood Culture (Wb) - Anticubital Right No growth in 5 days. Laboratory Tests Past 24 Hrs 07/03/19 05:12 WBC 12.4 H RBC 3.50 L Hgb 11.6 L Hct 34.7 L MCV 99.1 H MCH 33.1 H MCHC 33.4 RDW Std Deviation 44.7 H RDW Coeff of [place] 12.3 Plt Count 389 MPV 9.9 Immature Gran % (Auto) 0.600 Neut % (Auto) 73.7 H Lymph % (Auto) 16.6 L [place] % (Auto) 7.9 Eos % (Auto) 0.7 Baso % (Auto) 0.5 Absolute Neuts (auto) 9.2 H Absolute Lymphs (auto) 2.06 Nucleated RBC % 0 Medical Necessity - Tobacco Use Smoking Status: Never smoker Route of nutrition/ use of supplements: [] Nutritional Intake: [] IV Site: [] Rainey Catheter: [] - Assessment/Plan Antibiotics: [] Assessment/Plan: [] ecoli bacteremia due to diverticulitis - Repeat CT showed micro perf. Wbc and pain improved on meropenem, started 06/29, surgery following. Plan on d/c home in next 1-2 days on 5 more days of IM ertapenem, given at infusion center. Will follow, d/w protective services case worker, rx written
[2019-07-03] MEDS: Ibuprofen 400 MG Tablet PO ×2 (14:35→21:28)
--- NOTE | 2019-07-03 14:43 | NURSING ---
Dr. Johnston in at this time to assess pt- pt now c/o right back pain 04/03. Dr. Johnston states he does not believe the pain and bowel issue are related. Pt c/o this AM about pain to left foot and tylenol was given at that time. Dr. Johnston inquired about motrin. Notified Dr. Johnston that Motrin is now ordered and this RN has in room to give. Dr. Johnston states we will see how medication works and reassess pt tomorrow.
[2019-07-03 18:12] VITALS: BP 125/55; PULSE 70; RESP 16; TEMP 37.1; O2SAT 98
[2019-07-03 20:24] VITALS: BP 104/55; PULSE 72; RESP 18; TEMP 36.8; O2SAT 94
[2019-07-03] MEDS: Atorvastatin Calcium 20 MG Tablet PO (21:27)
[2019-07-03] MEDS: Gabapentin 100 MG Capsule 200 MG PO (21:29)
[2019-07-04] MEDS: 0.9% Normal Saline 1,000 ML 100 ML IV (02:25)
[2019-07-04 04:12] VITALS: BP 143/76; PULSE 80; RESP 16; TEMP 36.6; O2SAT 98
[2019-07-04] MEDS: Gabapentin 100 MG Capsule PO (05:32)
[2019-07-04] MEDS: Levothyroxine 100 MCG Tablet PO (05:32)
[2019-07-04 05:57] LABS: Absolute Lymphocyte Count 1.83 X10^3/uL (0.83-4.51); Absolute Neutrophil Count 6.6 X10^3/uL (2.0-7.7); Basophil# 0.07 X10^3/uL; Basophil% 0.8 % (0-1); Eosinophil# 0.16 X10^3/uL; Eosinophils% 1.7 % (0-5); Hematocrit 42.2 % (37-47); Hemoglobin 13.9 g/dL (12.0-15.0); Lymphocyte # 1.83 X10^3/ul (4.0); Lymphocyte % 19.7 % (19-41); Mean Corp Hgb Conc 32.9 g/dL (32-36); Mean Corpuscular Hgb 33.9 pg (27.0-32.0); Mean Corpuscular Volume 102.9 fL (81-99); Mean Platelet Vol. 10.8 fl (6.2-12.0); Monocyte# 0.63 X10^3/uL; Monocyte% 6.8 % (0-10); NRBC Flagged by Analyzer 0 % (0-5); Neutrophil # 6.55 X10^3/uL (2.7-7.7); Neutrophil % 70.5 % (47-70); Platelet Count 331 K/mm3 (150-450); RBC Distribution Width CV 12.5 % (11.6-14.6); RBC Distribution Width SD 47.1 fl (35.1-43.9); White Blood Count 9.3 K/mm3 (4.4-11.0)
[2019-07-04 06:23] LABS: Anion Gap 5 (5-15); BUN 8 mg/dL (7-18); BUN/Creat Ratio 14.3 RATIO (10-20); Calcium,Total 8.5 mg/dL (8.5-10.1); Chloride 110 mmol/L (98-107); Creatinine, Serum 0.56 mg/dL (0.55-1.02); EST Glomerular Filtration Rate 113 mL/min (>60); Est Glom Filt Rate - Afr Amer 137 mL/min (>60); Estimated Creatinine Clearance 40.81 ml/min; Glucose 112 mg/dL (74-106); Potassium 4.9 mmol/L (3.5-5.1); Sodium Level 136 mmol/L (136-145)
--- NOTE | 2019-07-04 08:01 | PCM.PN.SRG ---
Patient Problems: Active and Suspected Problems (Last Updated 06/24/19 @ 17:54 by Alexi Barker MD) Diverticulitis (Acute) Subjective: Patient evaluated resting comfortably in bed. She notes back pain has improved with Motrin. She denies abdominal pain. She is passing flatus and having loose bowel movements. - Physical Exam General: Alert, Oriented x3, Cooperative Abdomen: Soft, Non Tender, Non-Distended Vital Signs Temp Pulse Resp BP Pulse Ox 97.8 F 80 16 143/76 H 98 07/04/19 04:12 07/04/19 04:12 07/04/19 04:12 07/04/19 04:12 07/04/19 04:12 Oxygen Flow Rate (L/min) 1.5 Oxygen Delivery Method Room Air Weight: 200 lb 2.876 oz Body Mass Index (BMI) 36.6 Intake and Output for Last 24 Hours 07/02/19 07/03/19 07/04/19 23:59 23:59 23:59 Intake Total 3181.00 / 3581.00 3218.70 / 3218.70 464.03 / 464.03 Output Total 1550 / 1550 550 / 550 200 / 200 Balance 1631.00 / 2031.00 2668.70 / 2668.70 264.03 / 264.03 Microbiology Past 72 Hours 06/26/19 12:01 Blood Culture - Final Blood Culture (Wb) - Left Wrist No growth in 5 days. 06/26/19 11:26 Blood Culture - Final Blood Culture (Wb) - Anticubital Right No growth in 5 days. Laboratory Tests Past 24 Hrs 07/04/19 07/04/19 05:48 05:48 WBC 9.3 RBC 4.10 L Hgb 13.9 Hct 42.2 MCV 102.9 H MCH 33.9 H MCHC 32.9 RDW Std Deviation 47.1 H RDW Coeff of [place] 12.5 Plt Count 331 MPV 10.8 Immature Gran % (Auto) 0.500 Neut % (Auto) 70.5 H Lymph % (Auto) 19.7 [place] % (Auto) 6.8 Eos % (Auto) 1.7 Baso % (Auto) 0.8 Absolute Neuts (auto) 6.6 Absolute Lymphs (auto) 1.83 Nucleated RBC % 0 Sodium 136 Potassium 4.9 Chloride 110 H Carbon Dioxide 21.0 Anion Gap 5 BUN 8 Creatinine 0.56 Estim Creat Clear Calc 40.81 Est GFR (MDRD) Af Amer 137 Est GFR (MDRD) Non-Af 113 BUN/Creatinine Ratio 14.3 Glucose 112 H Calcium 8.5 Medical Necessity - Tobacco Use Smoking Status: Never smoker Assessment/Plan All Active Problems (Last Updated 06/24/19 @ 17:54 by Alexi Barker MD) Diverticulitis (Acute) I am following this patient in conjunction with Dr. Johnston. Acute diverticulitis Recommended diet discussed with patient to exclude nuts, seeds and popcorn from her diet Follow-up with Dr. Johnston in 14 days From a surgical standpoint patient seems ready for discharge Code Visit Inpatient E&M: 14109 Subs Hosp L1
[2019-07-04 08:43] VITALS: BP 137/58; PULSE 72; RESP 18; TEMP 36.9; O2SAT 95
[2019-07-04] MEDS: Ibuprofen 400 MG Tablet PO (08:55)
[2019-07-04] MEDS: Furosemide 40 MG Tablet PO (08:57)
[2019-07-04] MEDS: Calcium (Elemental) 500 MG Tablet PO (08:57)
[2019-07-04] MEDS: Enoxaparin 30 MG/0.3 ML Syringe SC (08:57)
[2019-07-04] MEDS: Aspirin E.C. 81 MG Tablet PO (08:57)
[2019-07-04] MEDS: Pantoprazole Sodium 20 MG Tablet PO (08:58)
[2019-07-04] MEDS: Lisinopril 10 MG Tablet PO (08:58)
--- NOTE | 2019-07-04 09:58 | PN.ID_ITS ---
Patient Problems: Active and Suspected Problems (Last Updated 06/24/19 @ 17:54 by Alexi Barker MD) Diverticulitis (Acute) Subjective: Feeling better, no fever, minimal pain in R hip - Physical Exam General: Alert, Cooperative, No apparent distress Lungs: Clear to auscultation, Normal air movement Cardiovascular: Regular rate, Regular Rhythm Abdomen: Soft, Non Tender, Non-Distended Skin: No rashes Vital Signs Temp Pulse Resp BP Pulse Ox 98.5 F 72 18 137/58 H 95 07/04/19 08:43 07/04/19 08:43 07/04/19 08:43 07/04/19 08:43 07/04/19 08:43 Oxygen Flow Rate (L/min) 1.5 Oxygen Delivery Method Room Air Weight: 90.8 kg Body Mass Index (BMI) 36.6 Intake and Output for Last 24 Hours 07/02/19 07/03/19 07/04/19 23:59 23:59 23:59 Intake Total 3181.00 / 3581.00 3218.70 / 3218.70 584.03 / 584.03 Output Total 1550 / 1550 550 / 550 200 / 200 Balance 1631.00 / 2031.00 2668.70 / 2668.70 384.03 / 384.03 Microbiology Past 72 Hours 06/26/19 12:01 Blood Culture - Final Blood Culture (Wb) - Left Wrist No growth in 5 days. 06/26/19 11:26 Blood Culture - Final Blood Culture (Wb) - Anticubital Right No growth in 5 days. Laboratory Tests Past 24 Hrs 07/04/19 07/04/19 05:48 05:48 WBC 9.3 RBC 4.10 L Hgb 13.9 Hct 42.2 MCV 102.9 H MCH 33.9 H MCHC 32.9 RDW Std Deviation 47.1 H RDW Coeff of [place] 12.5 Plt Count 331 MPV 10.8 Immature Gran % (Auto) 0.500 Neut % (Auto) 70.5 H Lymph % (Auto) 19.7 [place] % (Auto) 6.8 Eos % (Auto) 1.7 Baso % (Auto) 0.8 Absolute Neuts (auto) 6.6 Absolute Lymphs (auto) 1.83 Nucleated RBC % 0 Sodium 136 Potassium 4.9 Chloride 110 H Carbon Dioxide 21.0 Anion Gap 5 BUN 8 Creatinine 0.56 Estim Creat Clear Calc 40.81 Est GFR (MDRD) Af Amer 137 Est GFR (MDRD) Non-Af 113 BUN/Creatinine Ratio 14.3 Glucose 112 H Calcium 8.5 Medical Necessity - Tobacco Use Smoking Status: Never smoker Route of nutrition/ use of supplements: [] Nutritional Intake: [] IV Site: [] Rainey Catheter: [] - Assessment/Plan Antibiotics: [] Assessment/Plan: [] ecoli bacteremia due to diverticulitis - Repeat CT showed micro perf. Wbc and pain improved on meropenem, started 06/29, surgery following. Plan on d/c home today on 5 more days of IM ertapenem, given at infusion center. Will follow, d/w piano case and bench assembler, rx written
--- NOTE | 2019-07-04 10:20 | DCINST_ITS ---
- Discharge Diagnoses Current Active Problems: Current Active and Chronic Problems (Last Updated 06/24/19 @ 17:54 by Alexi Barker MD) Diverticulitis (Acute) You will use the following diet at home:: Cardiac Your food should be the consistency of: Regular Your liquids should be the consistency of: Regular/Thin Discharge Activity: Return to Normal Activity Weight Bearing Status: Weight bearing as tolerated Call your doctor if you observe: Fever of 101 or Higher, Inability to have a bowel movement Instructions: Diverticulitis, Small Bowel Obstruction Additional Instructions: please go to Infusion center daily for IV ertapenem administration for the next 5 days (stop date 07/09/19) Allergies/Adverse Reactions: Allergies doxycycline calcium [From Vibramycin] Allergy (Verified 06/24/19 11:30) Anaphylaxis doxycycline hyclate [From Vibramycin] Allergy (Verified 06/24/19 11:30) Anaphylaxis doxycycline monohydrate [From Vibramycin] Allergy (Verified 06/24/19 11:30) Anaphylaxis erythromycin base Allergy (Verified 06/24/19 11:30) Anaphylaxis Penicillins Allergy (Verified 06/24/19 11:30) Anaphylaxis Sulfa (Sulfonamide Antibiotics) Allergy (Verified 06/24/19 11:30) Anaphylaxis Medications to take at Discharge Furosemide [Lasix] 40 mg QHS 08/08/15 Multivit-Min/Iron/Folic/Lutein [Centrum Silver Women Tablet] 1 tab PO DAILY 09/03/15 aspirin 81 mg tablet,delayed release 81 mg PO QDAY 11/02/17 latanoprost 0.005 % eye drops 1 drp OPHTHALMIC QDAY 11/03/17 pantoprazole 40 mg tablet,delayed release 20 mg PO QDAY tab 11/03/17 calcium carbonate 500 mg calcium (1,250 mg) tablet 500 mg PO QDAY tab 05/19/18 levothyroxine 100 mcg tablet 100 mcg PO QDAY 05/19/18 lisinopril 10 mg tablet 10 mg PO QDAY #90 tab 09/29/18 clopidogrel 75 mg tablet 75 mg PO DAILY #90 tab 12/26/18 atorvastatin 20 mg tablet 20 mg PO QHS #90 tab 01/02/19 Ondansetron [Zofran Odt] 4 mg PO Q8H PRN PRN #10 tab 06/21/19 Ertapenem Sod [Invanz] 1 gm IM DAILY 5 Days #5 vial 07/03/19 The following prescriptions were given: Ertapenem Sod [Invanz] 1 gm IM DAILY 5 Days #5 vial Prescription Printed Primary Care Physician: Kay Peng MD [Primary Care Provider] - Please follow up with your Primary Care Physician in: one week Test Results: Test results from this visit will be discussed in further detail at your follow- up appointment, if applicable. Please Follow Up With: Gabriel Johnston MD When: 2 weeks Please Follow Up With: Jason Monroe MD When: 1-2 weeks Proposed Discharge Date: 07/04/19
--- NOTE | 2019-07-04 10:22 | DS.PCM_ITS ---
Discharge Date and Diagnosis - Problem List Patient Problems: Active and Suspected Problems (Last Updated 06/24/19 @ 17:54 by Alexi Barker MD) Diverticulitis (Acute) Date of Admission: 06/24/19 Date of Discharge: 07/04/19 - Primary Discharge Diagnosis Active and Suspected Problems (Last Updated 06/24/19 @ 17:54 by Alexi Barker MD) Diverticulitis (Acute) E coli bacteremia microperforation of bowel - Secondary Discharge Diagnosis Chronic Problems (Last Updated 06/24/19 @ 17:54 by Alexi Barker MD) Sinus node dysfunction (Chronic) Presence of cardiac pacemaker (Chronic 08/10/15) [employer] [place] Left carotid bruit (Chronic) History of coronary artery stent placement (Chronic 08/09/15) PSZ-IVS-Lwzq D1 w/ Promus Premier 2.50 mm x 12 mm, VCC-JFY-Xxgu-Mid LAD w/ Promus Premier 3.0 mm x 16 mm, JBY-GSI-Rmmw-Mid RCA w/ Promus Premier 4.0 mm x 38 mm. 08/09/15 Atherosclerotic heart disease of [place] coronary artery without angina pectoris (Chronic) EPY-BGC-Ilmv D1 w/ Promus Premier 2.50 mm x 12 mm, XMY-JUY-Bbap-Mid LAD w/ Promus Premier 3.0 mm x 16 mm, LJC-VHW-Khci-Mid RCA w/ Promus Premier 4.0 mm x 38 mm. 08/09/15 Hyperlipidemia (Chronic) Nonrheumatic mitral valve regurgitation (Chronic) Nonrheumatic tricuspid (valve) insufficiency (Chronic) HTN (hypertension) (Chronic) Hospital Course and Treatment Imaging Results: Diagnostic Data Chest X-Ray 06/24/19 11:46 IMPRESSION: No acute thoracic pathology. Electronically Signed: Parviz Deluca, at 13:30 EDT Tel , Service support , Hip/Pelvis X-Ray 06/25/19 08:38 IMPRESSION: 1. No acute fracture. at 2312 Reported and signed by: Fred Carr MD Electronically Signed: Fred Carr MD at 23:10 EDT Tel , Service support , Knee X-Ray 06/25/19 08:41 IMPRESSION: Osteopenia with medial compartmental arthrosis. No acute finding. Electronically Signed: Ismael Merino MD at 14:09 EDT , Service support , Lumbar Spine CT 06/26/19 11:27 IMPRESSION: Multilevel degenerative changes, as described above. Electronically Signed: Alexander Amaro MD at 16:56 EDT , Service support , Abdomen Ultrasound 06/28/19 12:45 IMPRESSION: Negative RUQ ultrasound. Electronically Signed: Dinesh Ch at 21:20 EDT Tel , Service support , Abdomen/Pelvis CT 06/29/19 10:29 IMPRESSION: 1. Acute sigmoid diverticulitis with microperforation allowing for a few gas bubbles into the adjacent mesentery. No defined extraluminal collection/abscess. 2. Suture ring again seen at the right colon. There is moderate fecal distention in this segment, which may reflect local denervation. No small bowel obstruction. The appendix is not visualized, likely absent. 3. There is edematous or ecchymotic stranding and subcutaneous metastases of the lateral abdominal and pelvic nichols. 4. Stable midline defect of the infraumbilical anterior abdominal wall allowing for a 9 cm fat-containing hernia that projects to the left of midline. 5. Stable mild aortoiliac atherosclerotic calcific plaquing. 6. Stable 1-2 mm nonobstructing stone versus calcific plaque at the lower pole of the right kidney. No hydronephrosis. Electronically Signed: Alexander Amaro MD at 13:55 EDT , Service support , general surgery- Dr Johnston infectious disease- Dr Monroe Operations: None Summary of Care Provided: The patient is a 69 year old F with a past medical history as listed. She was admitted through the ED on 06/24/2019 with a complaint of intractable right lower back pain. Patient had been seen in the ED about a week prior to admission with sudden onset of fever, chills, nausea, vomiting and diarrhea and had coming to the ED at that time. She was given IV Zofran and IV fluids and did not have any imaging. She improved and was discharged home. However subsequently developed this right lower back pain which gradually worsened with associated poor appetite and intermittent diarrhea. She had had no further nausea or vomiting. sHe therefore came into the ED. In the ED, her vitals were essentially unremarkable. Lactic acid was elevated at 2.9. CT of the abdomen and pelvis with IV contrast showed acute sigmoid diverticulitis without evidence of osseous lesion. She was admitted and managed for acute sigmoid diverticulitis and started on IV ciprofloxacin and IV Flagyl. Lactic acid improved with IV fluid administration. She was also started on oxycodone as needed for intractable right lumbar back pain. Blood cultures grew E. coli. She was continued on IV ciprofloxacin. Infectious disease was consulted. However patient still had persistent pain on her right side. She had repeat CT of the abdomen and pelvis with IV and oral contrast which showed microperforation in addition to the acute sigmoid diverticulitis. Flagyl and Cipro were discontinued and she was started on IV meropenem. She was kept n.p.o. Pain gradually improved and patient felt much better. Repeat blood cultures were negative. She was transitioned to clears which she tolerated and was advanced to full liquid diet and gradually onto a soft diet which she also tolerated. Patient remained stable, white cell count trended down and normalized, and was discharged home on 07/04/2019 with a prescription for IM ertapenem daily for 5 days with a stop date of 07/09/2019. She is to come to the infusion center to receive the IM ertapenem. She is to follow-up with her primary care doctor, general surgery and infectious disease. Patient seen and examined prior to discharge. She felt much better and had no complaints. Review of systems otherwise negative. Labs and vitals reviewed. Home medications reviewed and reconciled. o/e: Vital Signs Height 5 ft 2 in Weight: 200 lb 2.876 oz Weight in Pounds 200.2 lbs Pulse Ox 95 Temperature 98.5 F Pulse Rate 72 Respiratory Rate 18 Blood Pressure [BP] 124/53 Blood Pressure 137/58 Blood Pressure Position [BP] Supine Blood Pressure Position Semi-Fowlers General: Alert, Oriented x3, Cooperative, No apparent distress HEENT: Atraumatic, PERRLA, EOMI, Normocephalic Oral: Dry Mucosa Neck: Supple Lungs: Clear to auscultation, Normal air movement, No rhonchi, No wheeze, No rales Cardiovascular: Regular rate, Regular Rhythm, Normal S1, Normal S2, No murmurs Abdomen: Bowel Sounds Present, Soft, Non Tender, Non-Distended, No Hepato-spleno megaly Extremities: No clubbing, No cyanosis, No edema, Capillary Refill Less than 3 Seconds Skin: No rashes, No breakdown Musculoskeletal: No Tenderness to Palpation of Joints or Extremities Lymphatic: No Cervical, Supraclavicular, or Inguinal Adenopathy Neurological: Cranial nerves II-XII grossly intact, Neuro grossly intact, Motor Exam 5/5 strength throughout Psych/Mental Status: Normal Affect, Appropriate, Alert and oriented to time, place, person, mood and affect Plan as above. Patient Problems: Active and Suspected Problems (Last Updated 06/24/19 @ 17:54 by Alexi Barker MD) Diverticulitis (Acute) - Physical Exam Vital Signs Temp Pulse Resp BP Pulse Ox 98.5 F 72 18 137/58 H 95 07/04/19 08:43 07/04/19 08:43 07/04/19 08:43 07/04/19 08:43 07/04/19 08:43 Oxygen Flow Rate (L/min) 1.5 Oxygen Delivery Method Room Air Weight: 200 lb 2.876 oz Body Mass Index (BMI) 36.6 Intake and Output for Last 24 Hours 07/02/19 07/03/19 07/04/19 23:59 23:59 23:59 Intake Total 3181.00 / 3581.00 3218.70 / 3218.70 584.03 / 584.03 Output Total 1550 / 1550 550 / 550 200 / 200 Balance 1631.00 / 2031.00 2668.70 / 2668.70 384.03 / 384.03 Microbiology Past 72 Hours 06/26/19 12:01 Blood Culture - Final Blood Culture (Wb) - Left Wrist No growth in 5 days. 06/26/19 11:26 Blood Culture - Final Blood Culture (Wb) - Anticubital Right No growth in 5 days. Laboratory Tests Past 24 Hrs 07/04/19 07/04/19 05:48 05:48 WBC 9.3 RBC 4.10 L Hgb 13.9 Hct 42.2 MCV 102.9 H MCH 33.9 H MCHC 32.9 RDW Std Deviation 47.1 H RDW Coeff of [place] 12.5 Plt Count 331 MPV 10.8 Immature Gran % (Auto) 0.500 Neut % (Auto) 70.5 H Lymph % (Auto) 19.7 [place] % (Auto) 6.8 Eos % (Auto) 1.7 Baso % (Auto) 0.8 Absolute Neuts (auto) 6.6 Absolute Lymphs (auto) 1.83 Nucleated RBC % 0 Sodium 136 Potassium 4.9 Chloride 110 H Carbon Dioxide 21.0 Anion Gap 5 BUN 8 Creatinine 0.56 Estim Creat Clear Calc 40.81 Est GFR (MDRD) Af Amer 137 Est GFR (MDRD) Non-Af 113 BUN/Creatinine Ratio 14.3 Glucose 112 H Calcium 8.5 Discharge Diet: Low fat/ Low Cholesterol Discharge Activity: Return to Normal Activity Weight Bearing Status: Weight bearing as tolerated Call your doctor if you observe: Fever of 101 or Higher, Inability to have a bowel movement Home Medications: Medications to take at Discharge Furosemide [Lasix] 40 mg QHS 08/08/15 Multivit-Min/Iron/Folic/Lutein [Centrum Silver Women Tablet] 1 tab PO DAILY 09/03/15 aspirin 81 mg tablet,delayed release 81 mg PO QDAY 11/02/17 latanoprost 0.005 % eye drops 1 drp OPHTHALMIC QDAY 11/03/17 pantoprazole 40 mg tablet,delayed release 20 mg PO QDAY tab 11/03/17 calcium carbonate 500 mg calcium (1,250 mg) tablet 500 mg PO QDAY tab 05/19/18 levothyroxine 100 mcg tablet 100 mcg PO QDAY 05/19/18 lisinopril 10 mg tablet 10 mg PO QDAY #90 tab 09/29/18 clopidogrel 75 mg tablet 75 mg PO DAILY #90 tab 12/26/18 atorvastatin 20 mg tablet 20 mg PO QHS #90 tab 01/02/19 Ondansetron [Zofran Odt] 4 mg PO Q8H PRN PRN #10 tab 06/21/19 Ertapenem Sod [Invanz] 1 gm IM DAILY 5 Days #5 vial 07/03/19 Following Prescrptions Were Given to Patient: Ertapenem Sod [Invanz] 1 gm IM DAILY 5 Days #5 vial Prescription Printed Primary Care Physician: Kay Peng MD [Primary Care Provider] - Please follow up with your Primary Care Physician in: one week Please Follow Up With: Gabriel Johnston MD When: 2 weeks Please Follow Up With: Jason Monroe MD When: 1-2 weeks Patient Instructions: Small Bowel Obstruction, Diverticulitis Disposition: Home Minutes spent on discharge:: 40 Patient Condition:: Stable Medical Necessity - Tobacco Use Smoking Status: Never smoker Meaningful Use Info Meaningful Use Diagnoses (Choose all that apply): None applicable Code Visit Inpatient E&M: 01368 Disch Hosp
--- NOTE | 2019-07-04 10:50 | CASEMGMT ---
ENA SOLOMON updated patient will require IM ATB at discharge and would like to go to the infusion clinic. Script received. Insurance called and no pre-auth required. ENA SOLOMON updated the patient and confirmed preference for [facility] outpatient infusion clinic. ENA SOLOMON sent referral and appt made with infusion clinic for tomorrow 07/05/19 1430. ENA SOLOMON updated the patient and she voiced understanding. CM will continue to follow this patient and plan for a safe discharge.
[2019-07-04] MEDS: oxyCODONE 5 MG Tablet PO (11:50)
[2019-07-04 14:15] VITALS: BP 111/48; PULSE 70; RESP 18; TEMP 36.9; O2SAT 98
== END 2019-07-04 14:40 | disposition home or self-care (01) | DRG 392 ==
LOC: ED 12:04 → MS3 17:27
PROVIDERS: Nurse Practitioner Family; Admitting Provider Hospitalist; Emergency Provider Emergency Medicine; Family Provider Internal Medicine; PCP Internal Medicine; Referring Provider Hospitalist; Visit Provider Student in an Organized Health Care Education/Training Program
DX: K57.20 Diverticulitis of large intestine with perforation and abscess without bleeding (principal); R78.81 Bacteremia; I25.10 Atherosclerotic heart disease of native coronary artery without angina pectoris; I49.5 Sick sinus syndrome; E03.9 Hypothyroidism, unspecified; E78.5 Hyperlipidemia, unspecified; E66.9 Obesity, unspecified; I10 Essential (primary) hypertension; E86.0 Dehydration; M17.11 Unilateral primary osteoarthritis, right knee; E87.6 Hypokalemia; B96.20 Unspecified Escherichia coli [E. coli] as the cause of diseases classified elsewhere; M85.861 Other specified disorders of bone density and structure, right lower leg; M19.072 Primary osteoarthritis, left ankle and foot; I36.1 Nonrheumatic tricuspid (valve) insufficiency; Z79.02 Long term (current) use of antithrombotics/antiplatelets; Z68.36 Body mass index [BMI] 36.0-36.9, adult; Z90.49 Acquired absence of other specified parts of digestive tract; Z95.5 Presence of coronary angioplasty implant and graft; Z79.82 Long term (current) use of aspirin; Z95.0 Presence of cardiac pacemaker; Z87.19 Personal history of other diseases of the digestive system
CPT/HCPCS: 36415; 71046; 72131; 73502; 73562; 74177; 76705; 80048; 80053; 81001; 82550; 83605; 83735; 85025; 85027; 85652; 86140; 87040; 87077; 87186; 96361; 96374; 96375; 96376; 97110; 97116; 97162; 97165; 97530; 97535; 99284; 99285; J2185; J7030; J7050; Q9967; A4216; J0744; J2405

== ENCOUNTER → 2019-07-05 | Outpatient (CLI) | payer MEDICARE, SELFPAY ==
[2019-07-04 10:45] VITALS: BMI 36.6
[2019-07-05 14:26] VITALS: BP 140/51; PULSE 76; RESP 16; TEMP 36.9; BMI 37.0
[2019-07-05] MEDS: Ertapenem Sod 1 GM/10 ML Vial IM (14:44)
[2019-07-05 15:29] VITALS: BP 142/49; PULSE 80; RESP 16
== END | disposition home or self-care (01) ==
LOC: MEDOUTP 14:17
PROVIDERS: Family Provider Internal Medicine; PCP Internal Medicine; Referring Provider Internal Medicine Infectious Disease; Visit Provider Internal Medicine Infectious Disease
DX: K57.92 Diverticulitis of intestine, part unspecified, without perforation or abscess without bleeding (principal); R78.81 Bacteremia; B96.20 Unspecified Escherichia coli [E. coli] as the cause of diseases classified elsewhere
CPT/HCPCS: 96372

== ENCOUNTER → 2019-07-06 | Outpatient (CLI) | payer MEDICARE, SELFPAY ==
[2019-07-04 10:45] VITALS: BMI 36.6
[2019-07-05 14:26] VITALS: BMI 37.0
[2019-07-06 13:59] VITALS: BP 140/64; PULSE 83; RESP 18; TEMP 36.6; O2SAT 97; BMI 37.0
[2019-07-06] MEDS: Ertapenem Sod 1 GM/10 ML Vial IM (14:23)
== END | disposition home or self-care (01) ==
LOC: MEDOUTP 13:52
PROVIDERS: Family Provider Internal Medicine; PCP Internal Medicine; Referring Provider Internal Medicine Infectious Disease; Visit Provider Internal Medicine Infectious Disease
DX: K57.92 Diverticulitis of intestine, part unspecified, without perforation or abscess without bleeding (principal); R78.81 Bacteremia; B96.20 Unspecified Escherichia coli [E. coli] as the cause of diseases classified elsewhere
CPT/HCPCS: 96372

== ENCOUNTER → 2019-07-07 | Outpatient (CLI) | payer MEDICARE, SELFPAY ==
[2019-07-04 10:45] VITALS: BMI 36.6
[2019-07-06 13:59] VITALS: BMI 37.0
[2019-07-07 13:57] VITALS: BP 132/52; PULSE 71; RESP 16; TEMP 36.5; BMI 38.0
[2019-07-07] MEDS: Ertapenem Sod 1 GM/10 ML Vial IM (14:09)
== END | disposition home or self-care (01) ==
LOC: MEDOUTP 13:46
PROVIDERS: Family Provider Internal Medicine; PCP Internal Medicine; Referring Provider Internal Medicine Infectious Disease; Visit Provider Internal Medicine Infectious Disease
DX: K57.92 Diverticulitis of intestine, part unspecified, without perforation or abscess without bleeding (principal); R78.81 Bacteremia; B96.20 Unspecified Escherichia coli [E. coli] as the cause of diseases classified elsewhere
CPT/HCPCS: 96372

== ENCOUNTER 2019-07-08 14:15 | Outpatient (CLI) | payer MEDICARE, SELFPAY ==
[2019-07-04 10:45] VITALS: BMI 36.6
[2019-07-08 13:54] VITALS: BMI 38.0
[2019-07-08 14:17] VITALS: BP 133/71; PULSE 91; RESP 14; TEMP 36.7; O2SAT 98; BMI 38.0
[2019-07-08] MEDS: Ertapenem Sod 1 GM/10 ML Vial IM (14:22)
== END 2019-07-08 14:46 | disposition home or self-care (01) ==
LOC: MEDOUTP 14:17
PROVIDERS: Family Provider Internal Medicine; PCP Internal Medicine; Visit Provider Internal Medicine Infectious Disease
DX: K57.92 Diverticulitis of intestine, part unspecified, without perforation or abscess without bleeding (principal); R78.1 Finding of opiate drug in blood; B96.20 Unspecified Escherichia coli [E. coli] as the cause of diseases classified elsewhere
CPT/HCPCS: 96372

== ENCOUNTER → 2019-07-09 | Outpatient (CLI) | payer MEDICARE, SELFPAY ==
[2019-07-04 10:45] VITALS: BMI 36.6
[2019-07-08 14:17] VITALS: BMI 38.0
[2019-07-09 13:58] VITALS: BP 154/75; PULSE 82; RESP 16; TEMP 37.2; O2SAT 97; BMI 38.0
[2019-07-09] MEDS: Ertapenem Sod 1 GM/10 ML Vial IM (14:36)
== END | disposition home or self-care (01) ==
LOC: MEDOUTP 13:49
PROVIDERS: Family Provider Internal Medicine; PCP Internal Medicine; Visit Provider Internal Medicine Infectious Disease
DX: K57.92 Diverticulitis of intestine, part unspecified, without perforation or abscess without bleeding (principal); R78.81 Bacteremia; B96.20 Unspecified Escherichia coli [E. coli] as the cause of diseases classified elsewhere
CPT/HCPCS: 96372

== ENCOUNTER → 2020-06-25 | Outpatient (CLI) | payer MEDICARE, SELFPAY ==
[2020-05-23 09:23] VITALS: BMI 39.8
--- NOTE | 2020-06-25 08:07 | STRESSREP_ITS ---
Stress Test Report Date: 06-25-2020 Procedure: Pharmacologic stress nuclear imaging study Indications: CAD; PCI; conduction system disease; permanent pacemaker Consent: Per the patient Procedure: The patient underwent pharmacologic (Regadenoson) evaluation with a peak heart rate of 97 beats per minute (65 %predicted maximal heart rate) and a peak blood pressure of 146/82 mmHg. The baseline ECG demonstrated sinus rhythm; low voltage QRS. The peak pharmacologic ECG demonstrated no obvious ECG changes. There were no cardiac dysrhythmias pretest, during pharmacologic infusion, or recovery. There was no complaint of chest discomfort during pharmacologic infusion or recovery. The examination was discontinued secondary to completion of protocol. Impression: 1. Pharmacologic (Regadenoson) evaluation 2. Peak pharmacologic ECG with no obvious ECG changes. 3. There were no cardiac dysrhythmias pretest, during pharmacologic infusion, or recovery. 4. Nuclear images pending Myocardial perfusion imaging study: Technique: The patient was injected with 14.1 millicuries of technetium 99m Cardiolite and subsequently rest SPECT Cardiolite nuclear imaging was obtained in the horizontal long, vertical long, and short axis views. The patient underwent pharmacologic (Regadenoson) evaluation with a peak heart rate of 97 beats per minute (65 % percent predicted maximal heart rate) and a peak blood pressure of 146/82 mmHg. The patient was injected with 43.5 millicuries of technetium 99m Cardiolite and subsequently stress SPECT Cardiolite nuclear imaging was obtained in the horizontal long, vertical long, and short axis views. A gated Cardiolite study at peak stress was obtained. Interpretation: Rest and stress SPECT Cardiolite nuclear imaging status post realignment, normalization, and attenuation correction demonstrate relative uniform tracer uptake and myocardial perfusion appearing within normal limits. There is end systolic thickening and brightening. The gated Cardiolite study demonstrates myocardial thickening and inward wall motion. The reported LVEF is 75 %. Impression: 1. Rest and stress SPECT Cardiolite nuclear imaging demonstrate relative uniform tracer uptake and myocardial perfusion appearing within normal limits. 2. The gated Cardiolite study reports an LVEF of 75 %. This note was generated with [employer] software. It may contain incorrect words, spelling, and punctuation that were not noted in checking the note before signing.
== END | disposition home or self-care (01) ==
PROVIDERS: PCP Internal Medicine; Referring Provider Physician Assistant Medical; Visit Provider Physician Assistant Medical
DX: I25.10 Atherosclerotic heart disease of native coronary artery without angina pectoris (principal)
CPT/HCPCS: 78452; 93017; A9500; A4216; J2785

== ENCOUNTER 2020-12-31 11:29 | Outpatient (RCR) | payer MEDICARE, SELFPAY ==
[2020-12-11 10:24] VITALS: BMI 40.2
[2020-12-31] MEDS: COVID-19 VACC, MRNA(PFIZER)/PF 30 MCG/0.3 ML SYRINGE IM (09:12)
[2021-01-21] MEDS: COVID-19 VACC, MRNA(PFIZER)/PF 30 MCG/0.3 ML SYRINGE IM (08:57)
== END 2021-04-01 23:59 ==
LOC: IMMUN 11:29
PROVIDERS: PCP Internal Medicine; Visit Provider Family Medicine
DX: Z23 Encounter for immunization (principal)
CPT/HCPCS: 0001A; 0002A; 91300

== ENCOUNTER 2021-12-18 10:08 | Outpatient (CLI) | payer MEDICARE, SELFPAY ==
[2021-12-18 11:22] LABS: Anion Gap 7 (5-15); BUN 23 mg/dL (7-18); BUN/Creat Ratio 26.1 RATIO (10-20); Calcium,Total 9.4 mg/dL (8.5-10.1); Chloride 107 mmol/L (98-107); Creatinine, Serum 0.88 mg/dL (0.55-1.02); EST Glomerular Filtration Rate 67 mL/min (>60); Est Glom Filt Rate - Afr Amer 81 mL/min (>60); Glucose 121 mg/dL (74-106); Potassium 4.2 mmol/L (3.5-5.1); Sodium Level 138 mmol/L (136-145)
== END 2021-12-18 23:59 | disposition home or self-care (01) ==
LOC: LAB 10:11
PROVIDERS: PCP Internal Medicine; Visit Provider Nurse Practitioner Gerontology
DX: I10 Essential (primary) hypertension (principal)
CPT/HCPCS: 36415; 80048

== ENCOUNTER 2022-01-09 10:54 | Outpatient (CLI) | payer MEDICARE, SELFPAY ==
--- NOTE | 2022-01-09 10:57 | ECHOCS_ITS ---
Reason For Study: MR Procedure This was a 2D Doppler, Color Flow transthoracic echocardiogram. The study was technically difficult. Contrast injection was performed. Exam performed in department. Left Ventricle Normal LV size. Left ventricular systolic function is normal. The estimated ejection fraction is 60 %. Diastolic function is indeterminate. No regional wall motion abnormalities noted. Right Ventricle Normal RV size. ICD or pacer leads identified within the right ventricle. Normal systolic function. Atria The left atrium is mildly enlarged. Normal right atrium. ICD or pacer leads identified within the right atrium. No doppler evidence for ASD. Mitral Valve There is mild mitral annular calcification. Normal mitral valve. Mild (1+) mitral valve insufficiency. Tricuspid Valve Normal tricuspid valve. Trivial tricuspid valve insufficiency. Right ventricular systolic pressure estimated to be 38 mmHg. Aortic Valve Trisinus/trileaflet aortic valve. Mild diffuse aortic valve thickening. Moderate focal aortic valve thickening. Mild to moderate aortic stenosis. Trivial aortic valve insufficiency. Pulmonic Valve The pulmonic valve is not well visualized. Great Vessels Normal sized aortic root. Pericardium/Pleural No pericardial effusion. Epicardial fat. Medication Diluted definity 4ml given slow IV push to enhance endocardial definition. MMode/2D Measurements & Calculations LVIDd: 4.8 cm IVSd: 1.2 cm LVOT diam: 2.0 cm LVIDs: 3.1 cm LVPWd: 1.3 cm RVDd: 2.6 cm FS: 34.9 % LVOT area: 3.2 cm2 Ao root diam: 3.3 cm LAV(MOD-bp): 54.2 ml LA A4 area: 20.6 cm2 LAV(MOD-bp) Indexed: 29.0 ml/m2 LAV(MOD-sp2): 50.9 ml LAV(MOD-sp4): 57.9 ml LA dimension(2D): 4.1 cm RA A4 area: 13.2 cm2 Doppler Measurements & Calculations MV E max romain: 63.4 cm/sec Lat Peak E' Romain: 7.2 cm/sec Med Peak E' Romain: 6.6 cm/sec MV A max romain: 75.7 cm/sec E/E' lat: 8.8 E/E' med: 9.5 MV E/A: 0.84 Ao V2 max: 233.7 cm/sec LV V1 max: 89.5 cm/sec SV(LVOT): 59.7 ml Ao max P.9 mmHg LV V1 max P.2 mmHg Ao V2 mean: 160.0 cm/sec LV V1 mean P.6 mmHg Ao mean P.4 mmHg LV V1 mean: 59.5 cm/sec Ao V2 VTI: 49.3 cm LV V1 VTI: 18.7 cm SERENA(I,D): 1.2 cm2 SERENA(V,D): 1.2 cm2 PA V2 max: 73.2 cm/sec TR max romain: 294.7 cm/sec TR max P.7 mmHg ECHO/Echo Complete W/ Contrast Interpretation Summary The study was technically difficult. Contrast injection was performed. Left ventricular systolic function is normal. The estimated ejection fraction is 60 %. The left atrium is mildly enlarged. There is mild mitral annular calcification. Mild (1+) mitral valve insufficiency. Trivial tricuspid valve insufficiency. Mild to moderate aortic stenosis. Trivial aortic valve insufficiency. Epicardial fat. Right ventricular systolic pressure estimated to be 38 mmHg. Diastolic function is indeterminate. ICD or pacer leads identified within the right atrium ICD or pacer leads identified within the right ventricle. Ordering Physician: Claudia Cohen Referring Physician: Kay Peng Performed By: Laura Fine, RDCS, RVT
== END 2022-01-09 23:59 | disposition home or self-care (01) ==
LOC: CVS 10:55
PROVIDERS: PCP Internal Medicine; Referring Provider Nurse Practitioner Gerontology; Visit Provider Nurse Practitioner Gerontology
DX: I34.0 Nonrheumatic mitral (valve) insufficiency (principal)
CPT/HCPCS: 93306; Q9957; A4216; C8929

== ENCOUNTER → 2024-04-12 | Outpatient (CLI) | payer MEDICARE, SELFPAY ==
[2024-04-12 15:36] LABS: Absolute Lymphocyte Count 2.58 X10^3/uL (0.83-4.51); Absolute Neutrophil Count 4.6 X10^3/uL (2.0-7.7); Basophil# 0.11 X10^3/uL; Basophil% 1.4 % (0-1); Eosinophil# 0.19 X10^3/uL; Eosinophils% 2.4 % (0-5); Lymphocyte # 2.58 X10^3/ul (0.83-4.51); Lymphocyte % 32.3 % (19-41); Mean Corp Hgb Conc 32.6 g/dL (32-36); Mean Corpuscular Hgb 34.9 pg (27.0-32.0); Mean Corpuscular Volume 107.2 fL (81-99); Mean Platelet Vol. 10.8 fl (6.2-12.0); Monocyte# 0.53 X10^3/uL; Monocyte% 6.6 % (0-10); NRBC Flagged by Analyzer 0 % (0-5); Neutrophil # 4.55 X10^3/uL (2.7-7.7); Neutrophil % 56.9 % (47-70); Platelet Count 221 K/mm3 (150-450); RBC Distribution Width CV 12.3 % (11.6-14.6); RBC Distribution Width SD 48.5 fl (35.1-43.9); Red Blood Count 4.01 M/mm3 (4.2-5.4)
[2024-04-12 16:36] LABS: Anion Gap 10 (5-15); BUN 19 mg/dL (7-18); BUN/Creat Ratio 26.3 RATIO (10-20); Calcium,Total 9.5 mg/dL (8.5-10.1); Chloride 111 mmol/L (98-107); Creatinine, Serum 0.72 mg/dL (0.55-1.02); EST Glomerular Filtration Rate 83 mL/min (>60); Est Glom Filt Rate - Afr Amer 101 mL/min (>60); Glucose 107 mg/dL (74-106); Potassium 3.6 mmol/L (3.5-5.1); Sodium Level 142 mmol/L (136-145)
== END | disposition home or self-care (01) ==
LOC: LAB 14:01
PROVIDERS: PCP Internal Medicine; Referring Provider Nurse Practitioner Gerontology; Visit Provider Nurse Practitioner Gerontology
DX: R06.09 Other forms of dyspnea (principal)
CPT/HCPCS: 36415; 80048; 83880; 85025

== ENCOUNTER → 2024-04-21 | Outpatient (CLI) | payer MEDICARE, SELFPAY ==
[2024-04-21 16:25] LABS: Anion Gap 11 (5-15); BUN 17 mg/dL (7-18); BUN/Creat Ratio 19.5 RATIO (10-20); Calcium,Total 9.6 mg/dL (8.5-10.1); Chloride 109 mmol/L (98-107); Creatinine, Serum 0.87 mg/dL (0.55-1.02); EST Glomerular Filtration Rate 67 mL/min (>60); Est Glom Filt Rate - Afr Amer 81 mL/min (>60); Glucose 111 mg/dL (74-106); Potassium 4.2 mmol/L (3.5-5.1); Sodium Level 141 mmol/L (136-145)
== END | disposition home or self-care (01) ==
LOC: LAB 14:59
PROVIDERS: PCP Internal Medicine; Referring Provider Nurse Practitioner Gerontology; Visit Provider Nurse Practitioner Gerontology
DX: R06.09 Other forms of dyspnea (principal)
CPT/HCPCS: 36415; 80048

== ENCOUNTER → 2024-06-06 | Outpatient (CLI) | payer MEDICARE, SELFPAY ==
--- NOTE | 2024-06-06 07:05 | ECHOD_ITS ---
Reason For Study: JOHNSON, CAD Procedure This was a 2D Doppler, Color Flow transthoracic echocardiogram. Exam performed in department. Left Ventricle Normal LV size. Left ventricular systolic function is normal. The left ventricular ejection fraction is 60 %. Stage 1 diastolic dysfunction. No regional wall motion abnormalities noted. Right Ventricle Normal RV size. ICD or pacer leads identified within the right ventricle. Normal systolic function. Atria The left atrium is mildly enlarged. Normal right atrium. Mitral Valve There is mild mitral annular calcification. Mild (1+) eccentric mitral valve insufficiency. Tricuspid Valve Normal tricuspid valve. Aortic Valve Trisinus/trileaflet aortic valve. Mild focal aortic valve calcification. Mild aortic stenosis. Mean aortic valve gradient 13 mmHg. Mild (1+) aortic valve insufficiency. Pulmonic Valve Normal pulmonic valve. Great Vessels Normal aortic root. The pulmonary artery is normal size. Normal inferior vena cava. Pericardium/Pleural No pericardial effusion. MMode/2D Measurements & Calculations LVIDd: 4.5 cm IVSd: 1.1 cm LVOT diam: 2.0 cm LVIDs: 2.4 cm LVPWd: 1.1 cm LVOT area: 3.2 cm2 RVDd: 3.1 cm FS: 46.6 % Ao root diam: 3.0 cm LAV(MOD-bp): 60.7 ml LVAd ap4: 20.4 cm2 LAV(MOD-bp) Indexed: 33.2 ml/m2 LVLd ap4: 6.3 cm LAV(MOD-sp2): 48.0 ml EDV(MOD-sp4): 54.2 ml LAV(MOD-sp4): 74.7 ml EDV(sp4-el): 55.9 ml LVAs ap4: 11.7 cm2 LVLs ap4: 5.3 cm ESV(MOD-sp4): 21.9 ml ESV(sp4-el): 22.0 ml EF(MOD-sp4): 59.6 % EF(sp4-el): 60.7 % SV(MOD-sp4): 32.3 ml SV(sp4-el): 33.9 ml LA A4 area: 23.2 cm2 LA dimension(2D): 4.1 cm RA A4 area: 14.8 cm2 TAPSE: 1.9 cm Time Measurements MV dec time: 0.20 sec Doppler Measurements & Calculations MV E max romain: 69.2 cm/sec Lat Peak E' Romain: 6.5 cm/sec Med Peak E' Romain: 6.2 cm/sec MV A max romain: 76.4 cm/sec E/E' lat: 10.6 E/E' med: 11.2 MV E/A: 0.91 Ao V2 max: 237.1 cm/sec AI max romain: 425.2 cm/sec MV dec slope: 348.9 cm/sec2 Ao max P.5 mmHg AI max P.3 mmHg Ao V2 mean: 171.9 cm/sec Ao mean P.1 mmHg AI dec slope: 231.1 cm/sec2 Ao V2 VTI: 54.5 cm AI P1/2t: 538.9 msec AV (velocity ratio): 0.56 SERENA(I,D): 1.8 cm2 SERENA(V,D): 1.7 cm2 LV V1 max: 124.7 cm/sec SV(LVOT): 97.6 ml PA V2 max: 68.2 cm/sec LV V1 max P.2 mmHg LV V1 mean P.9 mmHg LV V1 mean: 95.3 cm/sec LV V1 VTI: 30.5 cm PI end-d romain: 91.0 cm/sec TR max romain: 273.3 cm/sec TR max P.9 mmHg ECHO/Echo Complete Interpretation Summary Normal LV size. Left ventricular systolic function is normal. The left ventricular ejection fraction is 60 %. Stage 1 diastolic dysfunction. Mild (1+) eccentric mitral valve insufficiency. Mild (1+) aortic valve insufficiency. Mean aortic valve gradient 13 mmHg. Ordering Physician: Claudia Cohen Referring Physician: Kay Peng Performed By: Laura Fine, GARRISONCS, RVT
--- NOTE | 2024-06-06 12:11 | STRESSREP ---
Stress Test Report Pharmacologic myocardial perfusion stress test. 74-year-old lady with a history of syncope Resting EKG demonstrates sinus rhythm with a rate of 73 bpm. Resting blood pressure is 162/90 mmHg. 0.4 mg of regadenoson was infused per usual protocol followed by rapid intravenous saline flush injection. Continuous EKG monitoring was performed. The maximum heart rate was 102 bpm which was 70% of max impacted heart rate the maximum workload was 1 metabolic equivalent. At rest there were no ST or T wave changes noted to suggest ischemia and at peak infusion nonspecific ST changes were noted which did not meet the criteria for ischemia. No clinical angina is noted. The final blood pressure was 150/82 mmHg. Myocardial perfusion protocol. 13 point mCi of technetium 99m sestamibi was injected at rest. 0.4 mg of regadenoson was infused per usual protocol. At peak infusion 41 mCi of technetium 99m sestamibi was injected stress images were obtained stress and rest images were reconstructed and compared in the short axis vertical long and horizontal long axis. Gated images were also obtained. Perfusion SPECT analysis: Review of the stress images demonstrate normal uptake of tracer noted in all areas of the myocardium. The resting images similar demonstrated normal uptake of tracer noted in all areas of the myocardium. No areas of reversibility are noted to suggest ischemia and no previous infarct is noted. Gated SPECT analysis: The gated ejection fraction is 69%. Conclusion: Normal pharmacologic myocardial perfusion stress test. Preserved ejection fraction.
== END | disposition home or self-care (01) ==
LOC: CVS 07:04
PROVIDERS: PCP Internal Medicine; Referring Provider Nurse Practitioner Gerontology; Visit Provider Nurse Practitioner Gerontology
DX: R06.09 Other forms of dyspnea (principal); I25.10 Atherosclerotic heart disease of native coronary artery without angina pectoris; I35.0 Nonrheumatic aortic (valve) stenosis
CPT/HCPCS: 78452; 93017; 93306; A9500; A4216; J2785

== ENCOUNTER 2024-10-19 08:32 | Emergency (ER) | payer MEDICARE, SELFPAY ==
[2024-10-19 08:32] VITALS: BP 150/91; PULSE 96; RESP 14; TEMP 36.1; O2SAT 98
[2024-10-19 08:36] VITALS: BMI 40.2
--- NOTE | 2024-10-19 09:04 | EX.ED.DYSGE1 ---
HPI History of Present Illness Chief Complaint: Abd Pain Informant: patient Narrative Narrative: 74-year-old female on Plavix and aspirin presenting to the emergency room with black tarry stools. Patient states that on she noticed that her stool was black tarry and hard to clean. She states that it continued yesterday throughout the day. It happened again today. She notes a mid to upper abdominal discomfort. She denies any pain with it. She notes that she has had prior upper GI bleed before as well as diverticulitis. She is on Plavix for coronary artery stent (2014). She is not on antacids. She has not been taking any Pepto-Bismol. She denies any bright red blood in the stool. She denies any syncope or near syncope. She thought about coming yesterday, , but family was in town so she decided to wait. [facility] Medical History Pacemaker malfunction Presence of stent in coronary artery (~08/09/15) Essential hypertension Sinus node dysfunction Left carotid bruit Osteoarthritis Hypothyroidism GI bleed Atherosclerotic heart disease of [place] coronary artery without angina pectoris Hyperlipidemia Nonrheumatic mitral valve regurgitation Nonrheumatic tricuspid (valve) insufficiency Home Medications ?Medication ?Instructions ?Recorded ?Last Taken ?Type aweepumi-chca-[id number] 8 mg-folic 400 1 tab PO DAILY 09/03/15 Unknown History mcg-K 50 mcg-lutein 300 mcg tablet aspirin 81 mg tablet,delayed 81 mg PO QDAY 11/02/17 Unknown History release latanoprost 0.005 % eye drops 1 drp ophthalmic (eye) QDAY 11/03/17 Unknown History levothyroxine 100 mcg tablet 100 mcg PO QDAY 05/19/18 Unknown History (Synthroid) cyanocobalamin (vitamin B-12) 1,000 mcg sublingual DAILY 04/16/23 Unknown History 1,000 mcg sublingual tablet atorvastatin 20 mg tablet 20 mg PO QHS #90 tabs 01/14/24 Unknown Rx clopidogrel 75 mg tablet 75 mg PO DAILY #90 tabs 01/14/24 Unknown Rx folic acid 400 mcg tablet 0.4 mg PO DAILY 04/12/24 Unknown History carvedilol 12.5 mg tablet 12.5 mg PO BID #180 tabs 06/22/24 Unknown Rx lisinopril 40 mg tablet 40 mg PO QDAY #90 tabs 08/28/24 Unknown Rx pantoprazole 20 mg tablet,delayed 20 mg PO BID 14 days #28 tabs 10/19/24 Unknown Rx release (Protonix) Allergy/AdvReac Type Severity Reaction Status Date / Time doxycycline calcium (From Allergy Anaphylaxis Verified 10/19/24 08:33 Vibramycin) doxycycline hyclate (From Allergy Anaphylaxis Verified 10/19/24 08:33 Vibramycin) doxycycline monohydrate Allergy Anaphylaxis Verified 10/19/24 08:33 (From Vibramycin) erythromycin base Allergy Anaphylaxis Verified 10/19/24 08:33 Penicillins Allergy Anaphylaxis Verified 10/19/24 08:33 Sulfa (Sulfonamide Allergy Anaphylaxis Verified 10/19/24 08:33 Antibiotics) Family History Other Diabetes Surgical History Presence of coronary angioplasty implant and graft (~08/09/15) Presence of cardiac pacemaker (08/10/15) Social History Smoking Status: Never smoker alcohol intake: current alcohol intake frequency: holidays/special occasions only caffeine: Yes Type: tea additional social history: no aspirin use no ibuprofen use ROS ROS ED Constitutional Constitutional ED: Denies chills, fever(s) or weight loss Eyes Eyes: Denies change in vision or diplopia ENT ENT ED: Denies ear pain, rhinorrhea or sore throat Cardiovascular Cardiovascular: Denies chest pain, orthopnea, palpitations or racing heartbeat Respiratory/Chest Respiratory/Chest: Denies cough, dyspnea or orthopnea Gastrointestinal Gastrointestinal: Reports other Details: See history of present illness ; Denies abdominal pain, diarrhea, nausea or vomiting Genitourinary Genitourinary ED: Denies dysuria, hematuria or urinary frequency Musculoskeletal Musculoskeletal: Denies arthralgias or myalgias Integumentary Denies abscess or rash Neurologic Neurologic: Denies headache(s) or weakness Psychiatric Psychiatric: Denies anxiety, depression, suicidal ideation or suicidal thoughts Endocrine Endocrinology: Denies polydipsia, polyphagia or polyuria Allergic/Immunologic Allergic/Immunologic ED: Denies mouth swelling, tongue swelling or urticaria EXAM Physical Exam Const Vital Signs: 10/19/24 08:32 Temperature 97 F L Temperature Source Temporal Pulse Rate 96 Respiratory Rate 14 Blood Pressure 150/91 H Blood Pressure Mean 110 Pulse Ox 98 Oxygen Delivery Method Room Air Positive well nourished and well developed General Appearance ED: well developed HEENT Reports normocephalic, head/scalp atraumatic and moist mucous membranes Eyes PERRL and EOMs intact bilaterally Neck no lymphadenopathy, supple and no JVD Resp normal respiratory effort and clear to auscultation bilaterally Cardio regular rate, regular rhythm and no murmurs GI normal to inspection, nondistended, normoactive bowel sounds and non-tender Palpation: soft Narrative: Rectal examination was performed in the accompaniment of female nurse (Rubina). There appears to be some black dried stool on the rectal skin which I tried to remove. There was really no stool on rectal examination or on glove. Back/Spine no CVA tenderness and normal ROM Extremity normal to inspection General Extremety ED: Negative for edema General Extremity: Negative for edema Neuro oriented x3 and CN's II-XII intact bilaterally Sensorium / Orientation: alert Motor Exam: strength 5/5 throughout Psych mental status grossly normal Mood & Affect: Negative for depressed or tearful Skin no rashes or lesions noted and no wounds MDM MDM MDM Narrative Medical decision making narrative: Differential diagnosis includes upper GI bleed gastric ulcer gastritis duodenal ulcer esophagitis anemia Hemoglobin is 13.4 with a white count of 8.8. BUN is 26 creatinine 0.76 glucose 162. Hemoccult is negative but I do not feel that this was an adequate specimen as there was minimal stool to work with so could be false negative due to specimen amount. Thanks reasonable that we can have her hold her Plavix for the next couple days and start her on Protonix. Patient is to monitor her color and her stool amounts. Return if needed follow-up with primary care early next week for recheck of hemoglobin History & Record Review Discussion w/independent historian: Patient Lab Data Attestation: I reviewed the patient's lab results. Labs: Laboratory Results - last 24 hr 10/19/24 08:52 WBC 8.8 RBC 3.66 L Hgb 13.4 Hct 39.2 MCV 107.1 H MCH 36.6 H MCHC 34.2 RDW Std Deviation 47.8 H RDW Coeff of [place] 12.0 Plt Count 217 MPV 11.0 Immature Gran % (Auto) 0.500 Neut % (Auto) 53.8 Lymph % (Auto) 35.1 [place] % (Auto) 7.8 Eos % (Auto) 1.7 Baso % (Auto) 1.1 H Absolute Neuts (auto) 4.7 Absolute Lymphs (auto) 3.09 Nucleated RBC % 0 Sodium 138 Potassium 3.2 L Chloride 102 Carbon Dioxide 26.0 Anion Gap 10 BUN 26 H Creatinine 0.76 Estim Creat Clear Calc 61.11 Est GFR (MDRD) Af Amer 95 Est GFR (MDRD) Non-Af 78 BUN/Creatinine Ratio 34.1 H Glucose 162 H Calcium 9.5 Discharge Plan Triage Chief Complaint: Abd Pain ED Provider: Gabriel Landa Dx/Rx/DC Orders Clinical Impression: Atherosclerotic heart disease of [place] coronary artery without angina pectoris, Acute upper gastrointestinal bleeding Instructions: ED Upper GI Bleeding (Stable) Prescriptions: New pantoprazole [Protonix] 20 mg tablet,delayed release (DR/EC) 20 mg PO BID 14 Days Qty: 28 0RF No Action latanoprost 0.005 % drops 1 drp OPHTHALMIC QDAY aspirin 81 mg tablet,delayed release (DR/EC) 81 mg PO QDAY levothyroxine [Synthroid] 100 mcg tablet 100 mcg PO QDAY cyanocobalamin (vitamin B-12) 1,000 mcg tablet, sublingual 1,000 mcg sublingual DAILY folic acid 400 mcg tablet 0.4 mg PO DAILY flcqgftc-wbf-anzt-FA-vit K-lut 1 EACH tablet 1 tab PO DAILY Patient Comments: supplement clopidogrel 75 mg tablet 75 mg PO DAILY Qty: 90 3RF atorvastatin 20 mg tablet 20 mg PO QHS Qty: 90 3RF carvedilol 12.5 mg tablet 12.5 mg PO BID Qty: 180 3RF Rx Instructions: must administer with a meal/food lisinopril 40 mg tablet 40 mg PO QDAY Qty: 90 3RF Primary Care Provider: Kay Peng Referrals: Kay Peng MD [Primary Care Provider] - 5-7 Days (for recheck of hemoglobin ) Activity Restrictions/Additional Instructions: I would advise you to hold your daily aspirin and clopidogrel at all until at least Wednesday. However if your doctor can see you on Wednesday for recheck of your hemoglobin level you may wait until Wednesday to restart after you see them. If you begin to experience increased stooling or began to feel that you are looking pale please return to the emergency. You may require further evaluation with endoscopy but at this point your hemoglobin level is stable and I do not feel you need admission into the hospital at this time Print Language: [place] Disposition Disposition: Home, Self Care
[2024-10-19 09:11] LABS: Absolute Lymphocyte Count 3.09 X10^3/uL (0.83-4.51); Absolute Neutrophil Count 4.7 X10^3/uL (2.0-7.7); Basophil% 1.1 % (0-1); Eosinophil# 0.15 X10^3/uL; Eosinophils% 1.7 % (0-5); Hematocrit 39.2 % (37-47); Hemoglobin 13.4 g/dL (12.0-15.0); Lymphocyte # 3.09 X10^3/ul (0.83-4.51); Lymphocyte % 35.1 % (19-41); Mean Corp Hgb Conc 34.2 g/dL (32-36); Mean Corpuscular Hgb 36.6 pg (27.0-32.0); Mean Corpuscular Volume 107.1 fL (81-99); Monocyte# 0.69 X10^3/uL; Monocyte% 7.8 % (0-10); NRBC Flagged by Analyzer 0 % (0-5); Neutrophil # 4.74 X10^3/uL (2.7-7.7); Neutrophil % 53.8 % (47-70); Platelet Count 217 K/mm3 (150-450); RBC Distribution Width SD 47.8 fl (35.1-43.9); Red Blood Count 3.66 M/mm3 (4.2-5.4); White Blood Count 8.8 K/mm3 (4.4-11.0)
[2024-10-19 10:06] LABS: Anion Gap 10 (5-15); BUN 26 mg/dL (7-18); BUN/Creat Ratio 34.1 RATIO (10-20); Calcium,Total 9.5 mg/dL (8.5-10.1); Chloride 102 mmol/L (98-107); Creatinine, Serum 0.76 mg/dL (0.55-1.02); EST Glomerular Filtration Rate 78 mL/min (>60); Est Glom Filt Rate - Afr Amer 95 mL/min (>60); Estimated Creatinine Clearance 61.11 ml/min; Glucose 162 mg/dL (74-106); Potassium 3.2 mmol/L (3.5-5.1); Sodium Level 138 mmol/L (136-145)
[2024-10-19 10:32] VITALS: PULSE 88; RESP 18; O2SAT 98
[2024-10-19 11:09] VITALS: BP 145/80; PULSE 84; RESP 18; TEMP 36.6; O2SAT 98
== END 2024-10-19 11:09 | disposition home or self-care (01) ==
PROVIDERS: Emergency Provider Emergency Medicine; PCP Internal Medicine; Visit Provider Emergency Medicine
DX: I25.10 Atherosclerotic heart disease of native coronary artery without angina pectoris (principal); K92.2 Gastrointestinal hemorrhage, unspecified; E78.5 Hyperlipidemia, unspecified; K57.92 Diverticulitis of intestine, part unspecified, without perforation or abscess without bleeding; I10 Essential (primary) hypertension; Z79.02 Long term (current) use of antithrombotics/antiplatelets; Z79.82 Long term (current) use of aspirin; Z95.5 Presence of coronary angioplasty implant and graft; Z95.0 Presence of cardiac pacemaker; Z79.899 Other long term (current) drug therapy
CPT/HCPCS: 80048; 82274; 85025; 99283

== ENCOUNTER 2024-11-13 09:17 | Day surgery (SDC) | payer MEDICARE, SELFPAY ==
--- NOTE | 2024-11-09 13:51 | RAD_ITS ---
INDICATION: For PPM generator change EXAMINATION/TECHNIQUE: X-RAY - XR Chest 2 Views COMPARISON: June 24, 2019 FINDINGS: LINES/DEVICES: Stable left-sided pacemaker. LUNGS: No consolidation, edema or effusion. No pneumothorax. MEDIASTINUM AND CARDIOVASCULAR STRUCTURES: Cardiac silhouette is enlarged. Central airways and mediastinal contour are unremarkable. BONES AND SOFT TISSUES: Degenerative vertebral changes. RAD/Chest PA and Lateral IMPRESSION: Cardiomegaly. Electronically Signed: Lew Zuniga DO at 17:00 EST ,
[2024-11-09 15:13] LABS: Hemoglobin 12.2 g/dL (12.0-15.0); Mean Corp Hgb Conc 33.9 g/dL (32-36); Mean Corpuscular Hgb 36.1 pg (27.0-32.0); Mean Corpuscular Volume 106.5 fL (81-99); Mean Platelet Vol. 10.8 fl (6.2-12.0); Platelet Count 212 K/mm3 (150-450); RBC Distribution Width CV 13.2 % (11.6-14.6); RBC Distribution Width SD 51.7 fl (35.1-43.9); Red Blood Count 3.38 M/mm3 (4.2-5.4)
[2024-11-09 15:21] LABS: Color, Urine Yellow (Yellow); Glucose, Dipstick Normal (Normal); Ketone-Dipstick 5 mg/dl (Negative); Leukocyte Esterase-Dipstick 500 /ul (Negative); Nitrite-Dipstick Negative (Negative); Occult Blood-Urine 10 /ul (Negative); Protein-Dipstick 30 mg/dl (Negative); Urine Bilirubin Dipstick 1 mg/dL (Negative); Urine Clarity Clear (Clear); Urine Urobilinogen 1 mg/dl (Normal)
[2024-11-09 16:29] LABS: Anion Gap 9 (5-15); BUN 11 mg/dL (7-18); BUN/Creat Ratio 14.6 RATIO (10-20); Calcium,Total 8.8 mg/dL (8.5-10.1); Chloride 105 mmol/L (98-107); Creatinine, Serum 0.75 mg/dL (0.55-1.02); EST Glomerular Filtration Rate 79 mL/min (>60); Est Glom Filt Rate - Afr Amer 96 mL/min (>60); Glucose 109 mg/dL (74-106); Potassium 2.7 mmol/L (3.5-5.1); Sodium Level 142 mmol/L (136-145)
[2024-11-09 16:39] LABS: Squamous Epithelial Cells - UA 5-10 SEEN /hpf (5-10)
[2024-11-09 16:40] LABS: Bacteria 1+ /hpf (None Seen); Mucous, Urine 1+ /hpf (<or=2+)
[2024-11-09 16:41] LABS: Red Blood Cells-Urine 0-5 SEEN /hpf (0-5); Transitional Epithelial - Ur 0-5 SEEN /hpf (0-5); White Blood Cells 50-100 SEEN /hpf (0-5)
[2024-11-10 10:57] VITALS: BMI 37.8
[2024-11-13 10:38] LABS: Anion Gap 7 (5-15); BUN 8 mg/dL (7-18); BUN/Creat Ratio 11.6 RATIO (10-20); Chloride 106 mmol/L (98-107); Creatinine, Serum 0.69 mg/dL (0.55-1.02); EST Glomerular Filtration Rate 88 mL/min (>60); Est Glom Filt Rate - Afr Amer 107 mL/min (>60); Estimated Creatinine Clearance 59.03 ml/min; Glucose 127 mg/dL (74-106); Potassium 3.4 mmol/L (3.5-5.1); Sodium Level 143 mmol/L (136-145)
--- NOTE | 2024-11-13 11:44 | CL.IE_ITS ---
Patient: MIO MCMANUS Study Date: 11/13/2024 Performing: Prakash Preston MD : 1950 Age: 74 Gender: female PROCEDURES PERFORMED [id number])BATTERY REMOVAL+REPLACEMENT PACER-DUAL LEAD INDICATIONS End-of-life replacement indicator PROCEDURE DETAILS The patient was brought to the Catheterization Lab in the postabsorptive nonsedated state. Informed consent was obtained prior to the procedure. Incision was made to the left upper chest. PPM generator was removed. Device pocket was irrigated with antibiotic clindamycin. new PPM generator was attached to the lead(s) and inserted into the pocket. Subcutaneous closure was completed. Skin closure was completed. Steri-strips applied to Lt chest area. The patient tolerated the procedure well. Estimated Blood Loss: 3 ml's IMPLANTED / EX-PLANTED DEVICES IMPLANTED DEVICE(S): PPM Generator - Health Advisor: [employer], Model # [id number] , Serial # [id number] DEVICE PARAMETERS DEVICE PARAMETERS: Mode - dddr lower rate - 70 upper rate - 120 rate response off CONCLUSIONS / RECOMMENDATIONS Device Conclusions: Successful implantation of a dual chamber pacemaker battery change and replacement Device Recommendations: Follow up with Primary Care Physician PROCEDURE MEDICATIONS Versed 1 mg IV Fentanyl 50 mcg IV Oxygen: 2 L/min via nasal cannula Clindamycin 900 mg IV 11/13/2024 10:52:31 Signed By Prakash Preston MD On 11/13/2024 11:43:27 Prakash Preston MD
== END 2024-11-13 12:45 | disposition home or self-care (01) ==
PROVIDERS: Physician Assistant Medical; PCP Internal Medicine; Referring Provider Internal Medicine Cardiovascular Disease; Visit Provider Internal Medicine Cardiovascular Disease
DX: Z45.010 Encounter for checking and testing of cardiac pacemaker pulse generator [battery] (principal); I25.10 Atherosclerotic heart disease of native coronary artery without angina pectoris; E78.5 Hyperlipidemia, unspecified; I10 Essential (primary) hypertension; Z79.82 Long term (current) use of aspirin; Z79.02 Long term (current) use of antithrombotics/antiplatelets; E87.6 Hypokalemia; I34.0 Nonrheumatic mitral (valve) insufficiency; I35.0 Nonrheumatic aortic (valve) stenosis
CPT/HCPCS: 33228; 36415; 71046; 80048; 81001; 85027; 85610; 99152; 99153